=== PATIENT | female | born 1940 | race Caucasian/White ===

== ENCOUNTER → 2018-08-24 13:36 | Outpatient (CLI) | payer MEDICARE, OTHER, SELFPAY | PROVIDERS: PCP Family Medicine; Visit Provider Family Medicine | DX: M85.851 Other specified disorders of bone density and structure, right thigh (principal); Z78.0 Asymptomatic menopausal state; Z87.891 Personal history of nicotine dependence | CPT/HCPCS: 77080 ==

== ENCOUNTER 2018-11-29 11:15 | Outpatient (RCR) | payer MEDICARE, OTHER, SELFPAY ==
--- NOTE | 2018-09-21 17:15 | PT.OIE ---
Current Diagnoses Stiffness of unspecified joint, not elsewhere classified (09/21/18) Cervicalgia (09/21/18) Muscle weakness (generalized) (09/21/18) Strain of muscle, fascia and tendon at neck level, initial encounter (09/21/18) Provider Visit Care Team Role Provider Type Tha Crandall MD Attending Provider Physician Primary Care Provider Specialty: [facility] Address: [address] [place] [address], [facility] Email: [email or web address] Physical Therapy Initial Evaluation PT-OP-A Visit Information Start: 09/21/18 16:45 Freq: Status: Active Protocol: Document 09/21/18 09:45 DCW (Rec: 09/21/18 17:15 DCW [id number]) Out-Patient Physical Therapy Visit Information Visit Information Visit Type Initial Evaluation Visit Start Time 09:45 Visit Stop Time 10:30 Total Visit Minutes 45 Visit Number 1 Number of TEAMCENTER CONSULTANT Visits 0 Evaluation Information Evaluation Date 09/21/18 PT-OP-B Current Condition Start: 09/21/18 16:45 Freq: Status: Active Protocol: Document 09/21/18 09:45 DCW (Rec: 09/21/18 17:15 DCW [id number]) Current Condition History of Current Condition Onset Date 6 weeks Current Complaints Neck pain and stiffness History of Current Condition Pt is a 78 year old female presenting with a 6 week history of neck pain and stiffness. Pt cannot recall any initial injury, and reports she just noticed increased pain and limited mobility one day. Pt reports she mostly only has trouble when trying to drive her car and turn to look at traffic, but overall it just hurts. Pt also reports noticing some decline in her microstrategy architect strength, but is unsure if it was present prior to her neck pain . Pt reports that she notices her weakness most in the kitchen, and has to use two hands to carry a jar or a weinstein of food. Pt reports no instances of pain or numbness in her hands, just weakness. Treatment Goals Patient/Caregiver Goals Pt would like to improve her cervical ROM and decrease pain . Prior Functional Status Baseline Function- ADL's Independent Baseline Function- Mobility Independent Current Functional Impairments (Reported) Functional Limitations- ADL's Difficulty turning head to look at traffic while driving Pt reports trouble carrying items in the kitchen when preparing food. PT-OP-C Subjective Start: 09/21/18 16:45 Freq: Status: Active Protocol: Document 09/21/18 09:45 DCW (Rec: 09/21/18 17:15 DCW [id number]) OP-PT Subjective Patient Comments Patient Comments I think it is getting a little better, but it just took so long to get everything around to get a PT appointment. Patient Reported Progress Improving OP-PT Pain Assessment Pain Assessment Grid Paper Pain Assessment Grid Completed No Location Bilateral Lateral Neck Intensity 6 Scale Used Numeric (1 - 10) PT-OP-F Manual Assessment Start: 09/21/18 16:45 Freq: Status: Active Protocol: Document 09/21/18 09:45 DCW (Rec: 09/21/18 17:15 DCW [id number]) Manual Assessments Soft Tissue Assessment Soft Tissue Mobility Assessment Severe tone bilaterally in upper trap and scalenes. Moderate tone in cervical paraspinals. No notable tone increased in rotator cuff or parascapular musculature. Joint Mobility Assessment Joint Mobility Assessment C2, C3, C4 rotated clockwise secondary to increased muscle tone. PT-OP-K Range of Motion Start: 09/21/18 16:45 Freq: Status: Active Protocol: Document 09/21/18 09:45 DCW (Rec: 09/21/18 17:15 DCW [id number]) Cervical Spine Range of Motion Cervical Spine Active Degrees Testing Position Sitting Flexion 70 Extension 35 Rotation Left 44 Rotation Right 41 Lateral Flexion Left 25 Lateral Flexion Right 25 ROM Limitations Soft Tissue Tightness Bony Restriction Muscle Tone Pain Comments Following MWM using resisted cervical rotation, cervical rotation improved to 68? L and 55? R PT-OP-L Special Tests Start: 09/21/18 16:45 Freq: Status: Active Protocol: Document 09/21/18 09:45 DCW (Rec: 09/21/18 17:15 DCW [id number]) Special Tests Cervical Spine Special Tests Vertebral Artery Test Results Negative Slump Test Results Negative Traction Test Results Negative Passive Neck Flexion Test Results Negative Foraminal Compression Test Results Negative Alar Ligament Test Results Negative PT-OP-M Strength Start: 09/21/18 16:45 Freq: Status: Active Protocol: Document 09/21/18 09:45 DCW (Rec: 09/21/18 17:15 [facility] [id number]) Hand Pc Support Specialist/Pinch Strength Hand Dominance Hand Dominance Right Hand Strength Right Pc Support Specialist (lbs) 30 Comments Extended elbow with dynamometer, 3-trial average ( 30, 30, 30) Left Pc Support Specialist (lbs) 38.33 Comments Extended elbow with dynamometer, 3-trial average ( 35, 40, 40) PT-OP-Q Treatments Start: 09/21/18 16:45 Freq: Status: Active Protocol: Document 09/21/18 09:45 DCW (Rec: 09/21/18 17:15 [facility] [id number]) Therapeutic Exercises Sitting Exercises Pc Support Specialist strengthening Sitting Exercise Name T-putty microstrategy architect strengthening Side bilateral Equipment Used Red T-putty Upper Trap Stretch Sitting Exercise Name Lateral flexion with ipsilateral rotation Side bilateral Scalene stretch Sitting Exercise Name Gentle lateral flexion Side bilateral Manual Therapy Treatment Manual Techniques MWM Type Resisted cervical rotation Body Position Supine Comments Improve left rotation from 44? -> 68?, improved right rotation from 41? -> 55? PT-OP-T Assessment and Plan Start: 09/21/18 16:45 Freq: Status: Active Protocol: Document 09/21/18 09:45 DCW (Rec: 09/21/18 17:15 [facility] [id number]) Physical Therapy Assessment Rehab Potential Rehabilitation Potential Excellent Evaluation Complexity Number of Personal Factors/Comorbidities 0 Number of Body Systems Impaired 3 Clinical Presentation at Evaluation Stable Impairments Impairments Functional Activities Pain Posture ROM Strength Tone Goals Five Impairment Pc Support Specialist Strength Roving Winder Goal (LTG) Pt microstrategy architect strength to 55 lbs bilaterally LTG Duration 11/19/18 Four Impairment Cervical ROM Short Term Goal (STG) Cervical rotation to 70? bilaterally STG Duration 10/22/18 Three Impairment Meal Prep Short Term Goal (STG) Pt to carry all appropriate items one handed during meal prep STG Duration 10/22/18 Two Impairment Difficulty driving Roving Winder Goal (LTG) Pt to have no limitations turning head while driving LTG Duration 11/19/18 One Impairment Pt does not have an appropriate home exercise program Short Term Goal (STG) Pt to be independent and compliant with appropriate HEP STG Duration 10/22/18 Assessment Summary Assessment Pt presents with signs and symptoms of limited cervical ROM secondary to increased muscle tone. 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 No real noticeable cause for increased tone, does not appear to have acute injury or obvious upper trap compensatory strategies. Pt will likely benefit from skilled therapy focusing on decreasing tone, improving flexibility, and improving microstrategy architect strength. Pt will likely progress well with adherence to HEP and manual STM. Pt may also benefit from modalities to decrease tone and help control pain. Physical Therapy Plan Frequency and Duration Frequency of Treatment 2x/Week Duration of Treatment 2 months Plan of Care Start Date 09/21/18 Plan of Care End Date 11/19/18 Therapeutic Interventions Therapeutic Interventions Home Exercise Program Joint Mobilizations Manual Therapy Neuromuscular Re-education Patient/Caregiver Education Self-Care/Home Management Soft Tissue Mobilization Therapeutic Activities Therapeutic Exercises Modalities Cold Pack/Ice Massage Electric Stimulation Hot Packs Ultrasound Next Visit Focus/Plan Next Note Type Treatment Note Next Visit Plan STM, Flexibility training, MWM
--- NOTE | 2018-09-21 17:16 | PT.OPPOC ---
Current Diagnoses Stiffness of unspecified joint, not elsewhere classified (09/21/18) Cervicalgia (09/21/18) Muscle weakness (generalized) (09/21/18) Strain of muscle, fascia and tendon at neck level, initial encounter (09/21/18) Provider Visit Care Team Role Provider Type Tha Crandall MD Attending Provider Physician Primary Care Provider Specialty: [facility] Address: [address] [place] [address], [facility] Email: [email or web address] Plan Of Care PT-OP-T Assessment and Plan Start: 09/21/18 16:45 Freq: Status: Active Protocol: Document 09/21/18 09:45 DCW (Rec: 09/21/18 17:15 DCW [id number]) Physical Therapy Assessment Rehab Potential Rehabilitation Potential Excellent Evaluation Complexity Number of Personal Factors/Comorbidities 0 Number of Body Systems Impaired 3 Clinical Presentation at Evaluation Stable Impairments Impairments Functional Activities Pain Posture ROM Strength Tone Goals Five Impairment Area Cleaner Strength Long-Term Goal (LTG) Pt estimator binding strength to 55 lbs bilaterally LTG Duration 11/19/18 Four Impairment Cervical ROM Short Term Goal (STG) Cervical rotation to 70? bilaterally STG Duration 10/22/18 Three Impairment Meal Prep Short Term Goal (STG) Pt to carry all appropriate items one handed during meal prep STG Duration 10/22/18 Two Impairment Difficulty driving Automotive Parts Counterperson Goal (LTG) Pt to have no limitations turning head while driving LTG Duration 11/19/18 One Impairment Pt does not have an appropriate home exercise program Short Term Goal (STG) Pt to be independent and compliant with appropriate HEP STG Duration 10/22/18 Assessment Summary Assessment Pt presents with signs and symptoms of limited cervical ROM secondary to increased muscle tone. 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 No real noticeable cause for increased tone, does not appear to have acute injury or obvious upper trap compensatory strategies. Pt will likely benefit from skilled therapy focusing on decreasing tone, improving flexibility, and improving estimator binding strength. Pt will likely progress well with adherence to HEP and manual STM. Pt may also benefit from modalities to decrease tone and help control pain. Physical Therapy Plan Frequency and Duration Frequency of Treatment 2x/Week Duration of Treatment 2 months Plan of Care Start Date 09/21/18 Plan of Care End Date 11/19/18 Therapeutic Interventions Therapeutic Interventions Home Exercise Program Joint Mobilizations Manual Therapy Neuromuscular Re-education Patient/Caregiver Education Self-Care/Home Management Soft Tissue Mobilization Therapeutic Activities Therapeutic Exercises Modalities Cold Pack/Ice Massage Electric Stimulation Hot Packs Ultrasound Next Visit Focus/Plan Next Note Type Treatment Note Next Visit Plan STM, Flexibility training, MWM Plan of Care Dates Plan of Care Start Date 09/21/18 Plan of Care End Date 11/19/18 Please Sign and Return: I have reviewed this Plan of Care and certify that the skilled therapy services above are required to meet the patient?s needs. Physician Signature Date Printed Name and Credentials Clinical Instructor Signature Printed Name and Credentials
--- NOTE | 2018-09-23 13:36 | PT.OTN ---
Current Diagnoses Cervicalgia (09/23/18) Strain of muscle, fascia and tendon at neck level, initial encounter (09/23/18) Physical Therapy Treatment Note PT-OP-A Visit Information Start: 09/21/18 16:45 Freq: Status: Active Protocol: Document 09/23/18 11:15 AMB (Rec: 09/23/18 13:35 AMB [email or web address]) Out-Patient Physical Therapy Visit Information Visit Information Visit Type Treatment Note Visit Start Time 11:15 Visit Stop Time 12:00 Total Visit Minutes 55 Visit Number 2 PT-OP-B Current Condition Start: 09/21/18 16:45 Freq: Status: Active Protocol: Document 09/21/18 09:45 DCW (Rec: 09/21/18 17:15 DCW [id number]) Current Condition History of Current Condition Onset Date 6 weeks Current Complaints Neck pain and stiffness History of Current Condition Pt is a 78 year old female presenting with a 6 week history of neck pain and stiffness. Pt cannot recall any initial injury, and reports she just noticed increased pain and limited mobility one day. Pt reports she mostly only has trouble when trying to drive her car and turn to look at traffic, but overall it just hurts. Pt also reports noticing some decline in her spinneret cleaner strength, but is unsure if it was present prior to her neck pain . Pt reports that she notices her weakness most in the kitchen, and has to use two hands to carry a jar or a weinstein of food. Pt reports no instances of pain or numbness in her hands, just weakness. Treatment Goals Patient/Caregiver Goals Pt would like to improve her cervical ROM and decrease pain . Prior Functional Status Baseline Function- ADL's Independent Baseline Function- Mobility Independent Current Functional Impairments (Reported) Functional Limitations- ADL's Difficulty turning head to look at traffic while driving Pt reports trouble carrying items in the kitchen when preparing food. PT-OP-C Subjective Start: 09/21/18 16:45 Freq: Status: Active Protocol: Document 09/23/18 11:15 AMB (Rec: 09/23/18 13:35 AMB [email or web address]) OP-PT Subjective Patient Comments Patient Comments Pt noted increased soreness with stretching, thinks she may hav over done it. PT-OP-F Manual Assessment Start: 09/21/18 16:45 Freq: Status: Active Protocol: Document 09/21/18 09:45 DCW (Rec: 09/21/18 17:15 DCW [id number]) Manual Assessments Soft Tissue Assessment Soft Tissue Mobility Assessment Severe tone bilaterally in upper trap and scalenes. Moderate tone in cervical paraspinals. No notable tone increased in rotator cuff or parascapular musculature. Joint Mobility Assessment Joint Mobility Assessment C2, C3, C4 rotated clockwise secondary to increased muscle tone. PT-OP-K Range of Motion Start: 09/21/18 16:45 Freq: Status: Active Protocol: Document 09/21/18 09:45 DCW (Rec: 09/21/18 17:15 DCW [id number]) Cervical Spine Range of Motion Cervical Spine Active Degrees Testing Position Sitting Flexion 70 Extension 35 Rotation Left 44 Rotation Right 41 Lateral Flexion Left 25 Lateral Flexion Right 25 ROM Limitations Soft Tissue Tightness Bony Restriction Muscle Tone Pain Comments Following MWM using resisted cervical rotation, cervical rotation improved to 68? L and 55? R PT-OP-L Special Tests Start: 09/21/18 16:45 Freq: Status: Active Protocol: Document 09/21/18 09:45 DCW (Rec: 09/21/18 17:15 DCW [id number]) Special Tests Cervical Spine Special Tests Vertebral Artery Test Results Negative Slump Test Results Negative Traction Test Results Negative Passive Neck Flexion Test Results Negative Foraminal Compression Test Results Negative Alar Ligament Test Results Negative PT-OP-M Strength Start: 09/21/18 16:45 Freq: Status: Active Protocol: Document 09/21/18 09:45 DCW (Rec: 09/21/18 17:15 DCW [id number]) Hand Citrix Architect/Pinch Strength Hand Dominance Hand Dominance Right Hand Strength Right Citrix Architect (lbs) 30 Comments Extended elbow with dynamometer, 3-trial average ( 30, 30, 30) Left Citrix Architect (lbs) 38.33 Comments Extended elbow with dynamometer, 3-trial average ( 35, 40, 40) PT-OP-Q Treatments Start: 09/21/18 16:45 Freq: Status: Active Protocol: Document 09/23/18 11:15 AMB (Rec: 09/23/18 13:35 AMB [email or web address]) Cardio Equipment Upper Body Ergometer (UBE) Duration (Minutes) 5 RPM 60 Therapeutic Exercises Supine Exercises 1 Supine Exercise Name contract relax cervical rotation Sitting Exercises Citrix Architect strengthening Sitting Exercise Name T-putty spinneret cleaner strengthening Side bilateral Equipment Used Red T-putty Comments 2x/day, for 2 minutes Upper Trap Stretch Sitting Exercise Name Lateral flexion with ipsilateral rotation Side bilateral Reps/Minutes 45x2 Scalene stretch Sitting Exercise Name Gentle lateral flexion Side bilateral Reps/Minutes 45x2 Manual Therapy Treatment Soft Tissue Mobilization 1 Body Location suboccipitals, paraspinals, UT , levator scap Mobilization Type Myofascial Release Sustained Pressure Intensity/Depth Moderate Body Position Hooklying Manual Traction Cervical Body Position Hooklying PT-OP-R Modalities Start: 09/21/18 16:45 Freq: Status: Active Protocol: Document 09/23/18 11:15 AMB (Rec: 09/23/18 13:36 AMB [email or web address]) Hot Pack/Cold Pack Treatment Hot Pack Location cervical spine Patient Position Hooklying Treatment Duration (minutes) 10 PT-OP-T Assessment and Plan Start: 09/21/18 16:45 Freq: Status: Active Protocol: Document 09/23/18 11:15 AMB (Rec: 09/23/18 13:35 AMB [email or web address]) Physical Therapy Assessment Assessment Summary Assessment Right rotation continues to be more restricted than left. Encouraged pt in breathing into stretching rather than pushing into pain. Educated on posture and avoiding over use of UT with lifting activities. Physical Therapy Plan Next Visit Focus/Plan Next Note Type Treatment Note Next Visit Plan STM, Flexibility training, MWM
--- NOTE | 2018-09-27 12:43 | PT.OTN ---
Current Diagnoses Cervicalgia (09/27/18) Strain of muscle, fascia and tendon at neck level, initial encounter (09/27/18) Physical Therapy Treatment Note PT-OP-A Visit Information Start: 09/21/18 16:45 Freq: Status: Active Protocol: Document 09/27/18 11:15 AMB (Rec: 09/27/18 11:22 AMB [id number]) Out-Patient Physical Therapy Visit Information Visit Information Visit Type Treatment Note Visit Start Time 11:15 Visit Stop Time 12:00 Total Visit Minutes 55 Visit Number 2 Number of QUALITY ENGINEERING MANAGER Visits 3 PT-OP-B Current Condition Start: 09/21/18 16:45 Freq: Status: Active Protocol: Document 09/21/18 09:45 DCW (Rec: 09/21/18 17:15 DCW [id number]) Current Condition History of Current Condition Onset Date 6 weeks Current Complaints Neck pain and stiffness History of Current Condition Pt is a 78 year old female presenting with a 6 week history of neck pain and stiffness. Pt cannot recall any initial injury, and reports she just noticed increased pain and limited mobility one day. Pt reports she mostly only has trouble when trying to drive her car and turn to look at traffic, but overall it just hurts. Pt also reports noticing some decline in her supervisor coffee strength, but is unsure if it was present prior to her neck pain . Pt reports that she notices her weakness most in the kitchen, and has to use two hands to carry a jar or a weinstein of food. Pt reports no instances of pain or numbness in her hands, just weakness. Treatment Goals Patient/Caregiver Goals Pt would like to improve her cervical ROM and decrease pain . Prior Functional Status Baseline Function- ADL's Independent Baseline Function- Mobility Independent Current Functional Impairments (Reported) Functional Limitations- ADL's Difficulty turning head to look at traffic while driving Pt reports trouble carrying items in the kitchen when preparing food. PT-OP-C Subjective Start: 09/21/18 16:45 Freq: Status: Active Protocol: Document 09/27/18 11:15 AMB (Rec: 09/27/18 11:22 AMB [id number]) OP-PT Subjective Patient Comments Patient Comments Pt continues to notice sorness with stretching, tightness in right side when she is stretching the left. PT-OP-F Manual Assessment Start: 09/21/18 16:45 Freq: Status: Active Protocol: Document 09/21/18 09:45 DCW (Rec: 09/21/18 17:15 DCW [id number]) Manual Assessments Soft Tissue Assessment Soft Tissue Mobility Assessment Severe tone bilaterally in upper trap and scalenes. Moderate tone in cervical paraspinals. No notable tone increased in rotator cuff or parascapular musculature. Joint Mobility Assessment Joint Mobility Assessment C2, C3, C4 rotated clockwise secondary to increased muscle tone. PT-OP-K Range of Motion Start: 09/21/18 16:45 Freq: Status: Active Protocol: Document 09/21/18 09:45 DCW (Rec: 09/21/18 17:15 DCW [id number]) Cervical Spine Range of Motion Cervical Spine Active Degrees Testing Position Sitting Flexion 70 Extension 35 Rotation Left 44 Rotation Right 41 Lateral Flexion Left 25 Lateral Flexion Right 25 ROM Limitations Soft Tissue Tightness Bony Restriction Muscle Tone Pain Comments Following MWM using resisted cervical rotation, cervical rotation improved to 68? L and 55? R PT-OP-L Special Tests Start: 09/21/18 16:45 Freq: Status: Active Protocol: Document 09/21/18 09:45 DCW (Rec: 09/21/18 17:15 DCW [id number]) Special Tests Cervical Spine Special Tests Vertebral Artery Test Results Negative Slump Test Results Negative Traction Test Results Negative Passive Neck Flexion Test Results Negative Foraminal Compression Test Results Negative Alar Ligament Test Results Negative PT-OP-M Strength Start: 09/21/18 16:45 Freq: Status: Active Protocol: Document 09/21/18 09:45 DCW (Rec: 09/21/18 17:15 DCW [id number]) Hand Computer Typesetter/Pinch Strength Hand Dominance Hand Dominance Right Hand Strength Right Computer Typesetter (lbs) 30 Comments Extended elbow with dynamometer, 3-trial average ( 30, 30, 30) Left Computer Typesetter (lbs) 38.33 Comments Extended elbow with dynamometer, 3-trial average ( 35, 40, 40) PT-OP-Q Treatments Start: 09/21/18 16:45 Freq: Status: Active Protocol: Document 09/27/18 11:15 AMB (Rec: 09/27/18 12:43 AMB [email or web address]) Therapeutic Exercises Sitting Exercises Computer Typesetter strengthening Sitting Exercise Name T-putty supervisor coffee strengthening Side bilateral Equipment Used Green T-putty Comments 2x/day, for 2 minutes Upper Trap Stretch Sitting Exercise Name Lateral flexion with ipsilateral rotation Side bilateral Reps/Minutes 45x2 Scalene stretch Sitting Exercise Name Gentle lateral flexion Side bilateral Reps/Minutes 45x2 Manual Therapy Treatment Soft Tissue Mobilization 1 Body Location suboccipitals, paraspinals, UT , levator scap Mobilization Type Myofascial Release Sustained Pressure Intensity/Depth Moderate Body Position Hooklying Joint Mobilizations 1 Joint C3-4, C4-5, C5-6 Direction UPA Grade III Body Position Supine Manual Traction Cervical Body Position Hooklying PT-OP-R Modalities Start: 09/21/18 16:45 Freq: Status: Active Protocol: Document 09/27/18 11:15 AMB (Rec: 09/27/18 12:43 AMB [email or web address]) Hot Pack/Cold Pack Treatment Hot Pack Location cervical spine Patient Position Hooklying Treatment Duration (minutes) 10 PT-OP-T Assessment and Plan Start: 09/21/18 16:45 Freq: Status: Active Protocol: Document 09/27/18 11:15 AMB (Rec: 09/27/18 12:43 AMB [email or web address]) Physical Therapy Assessment Assessment Summary Assessment Pt is noticing discomfort with stretching, not bad in mid range, encouraged not to force stretching. Physical Therapy Plan Next Visit Focus/Plan Next Note Type Treatment Note Next Visit Plan STM, Flexibility training, MWM
--- NOTE | 2018-09-30 12:43 | PT.OTN ---
Current Diagnoses Cervicalgia (09/30/18) Strain of muscle, fascia and tendon at neck level, initial encounter (09/30/18) Physical Therapy Treatment Note PT-OP-A Visit Information Start: 09/21/18 16:45 Freq: Status: Active Protocol: Document 09/30/18 12:00 DCW (Rec: 09/30/18 12:43 DCW [id number]) Out-Patient Physical Therapy Visit Information Visit Information Visit Type Treatment Note Visit Start Time 12:00 Visit Stop Time 12:50 Total Visit Minutes 50 Visit Number 4 Number of CREW LEADER/CONTROL ROOM OPERATOR Visits 0 PT-OP-B Current Condition Start: 09/21/18 16:45 Freq: Status: Active Protocol: Document 09/21/18 09:45 DCW (Rec: 09/21/18 17:15 DCW [id number]) Current Condition History of Current Condition Onset Date 6 weeks Current Complaints Neck pain and stiffness History of Current Condition Pt is a 78 year old female presenting with a 6 week history of neck pain and stiffness. Pt cannot recall any initial injury, and reports she just noticed increased pain and limited mobility one day. Pt reports she mostly only has trouble when trying to drive her car and turn to look at traffic, but overall it just hurts. Pt also reports noticing some decline in her energy management specialist strength, but is unsure if it was present prior to her neck pain . Pt reports that she notices her weakness most in the kitchen, and has to use two hands to carry a jar or a weinstein of food. Pt reports no instances of pain or numbness in her hands, just weakness. Treatment Goals Patient/Caregiver Goals Pt would like to improve her cervical ROM and decrease pain . Prior Functional Status Baseline Function- ADL's Independent Baseline Function- Mobility Independent Current Functional Impairments (Reported) Functional Limitations- ADL's Difficulty turning head to look at traffic while driving Pt reports trouble carrying items in the kitchen when preparing food. PT-OP-C Subjective Start: 09/21/18 16:45 Freq: Status: Active Protocol: Document 09/30/18 12:00 DCW (Rec: 09/30/18 12:43 DCW [id number]) OP-PT Subjective Patient Comments Patient Comments I well good, well, I'm here anyway. Pt notes that she continues to feel soreness with some of her stretching, more with the lateral flexion. PT-OP-F Manual Assessment Start: 09/21/18 16:45 Freq: Status: Active Protocol: Document 09/21/18 09:45 DCW (Rec: 09/21/18 17:15 DCW [id number]) Manual Assessments Soft Tissue Assessment Soft Tissue Mobility Assessment Severe tone bilaterally in upper trap and scalenes. Moderate tone in cervical paraspinals. No notable tone increased in rotator cuff or parascapular musculature. Joint Mobility Assessment Joint Mobility Assessment C2, C3, C4 rotated clockwise secondary to increased muscle tone. PT-OP-K Range of Motion Start: 09/21/18 16:45 Freq: Status: Active Protocol: Document 09/21/18 09:45 DCW (Rec: 09/21/18 17:15 DCW [id number]) Cervical Spine Range of Motion Cervical Spine Active Degrees Testing Position Sitting Flexion 70 Extension 35 Rotation Left 44 Rotation Right 41 Lateral Flexion Left 25 Lateral Flexion Right 25 ROM Limitations Soft Tissue Tightness Bony Restriction Muscle Tone Pain Comments Following MWM using resisted cervical rotation, cervical rotation improved to 68? L and 55? R PT-OP-L Special Tests Start: 09/21/18 16:45 Freq: Status: Active Protocol: Document 09/21/18 09:45 DCW (Rec: 09/21/18 17:15 DCW [id number]) Special Tests Cervical Spine Special Tests Vertebral Artery Test Results Negative Slump Test Results Negative Traction Test Results Negative Passive Neck Flexion Test Results Negative Foraminal Compression Test Results Negative Alar Ligament Test Results Negative PT-OP-M Strength Start: 09/21/18 16:45 Freq: Status: Active Protocol: Document 09/21/18 09:45 DCW (Rec: 09/21/18 17:15 DCW [id number]) Hand Deployment Engineer/Pinch Strength Hand Dominance Hand Dominance Right Hand Strength Right Deployment Engineer (lbs) 30 Comments Extended elbow with dynamometer, 3-trial average ( 30, 30, 30) Left Deployment Engineer (lbs) 38.33 Comments Extended elbow with dynamometer, 3-trial average ( 35, 40, 40) PT-OP-Q Treatments Start: 09/21/18 16:45 Freq: Status: Active Protocol: Document 09/30/18 12:00 DCW (Rec: 09/30/18 12:43 DCW [id number]) Cardio Equipment Upper Body Ergometer (UBE) Duration (Minutes) 5 RPM 60 Therapeutic Exercises Supine Exercises Serratus Punch Supine Exercise Name Serratus Punch Side bilateral Resistance 3# Standing Exercises Horizontal Abduction Standing Exercise Name Horizontal Abduction Side bilateral Resistance Lv 3 Equipment Used T-band Shoulder Extension Standing Exercise Name Sh Extension Side bilateral Resistance Lv 3 Equipment Used T-band Rows Standing Exercise Name Rows Side bilateral Resistance Lv 3 Equipment Used T-band Manual Therapy Treatment Soft Tissue Mobilization 1 Body Location suboccipitals, paraspinals, UT , levator scap Mobilization Type Myofascial Release Sustained Pressure Intensity/Depth Moderate Body Position Hooklying Joint Mobilizations 1 Joint C3-4, C4-5, C5-6 Direction UPA Grade III Body Position Supine Manual Traction Cervical Body Position Hooklying PT-OP-R Modalities Start: 09/21/18 16:45 Freq: Status: Active Protocol: Document 09/30/18 12:00 DCW (Rec: 09/30/18 12:43 DCW [id number]) Hot Pack/Cold Pack Treatment Hot Pack Location cervical spine Patient Position Hooklying Treatment Duration (minutes) 10 PT-OP-T Assessment and Plan Start: 09/21/18 16:45 Freq: Status: Active Protocol: Document 09/30/18 12:00 DCW (Rec: 09/30/18 12:43 DCW [id number]) Physical Therapy Assessment Goals Five Impairment Deployment Engineer Strength Hematology Supervisor Goal (LTG) Pt energy management specialist strength to 55 lbs bilaterally LTG Duration 11/19/18 Four Impairment Cervical ROM Short Term Goal (STG) Cervical rotation to 70? bilaterally STG Duration 10/22/18 Three Impairment Meal Prep Short Term Goal (STG) Pt to carry all appropriate items one handed during meal prep STG Duration 10/22/18 Two Impairment Difficulty driving Half-Way Goal (LTG) Pt to have no limitations turning head while driving LTG Duration 11/19/18 One Impairment Pt does not have an appropriate home exercise program Short Term Goal (STG) Pt to be independent and compliant with appropriate HEP STG Duration 10/22/18 Assessment Summary Assessment Pt required verbal cues with new TherEx to limit upper trap compensation and stop shoulder shrugging. Physical Therapy Plan Frequency and Duration Frequency of Treatment 2x/Week Duration of Treatment 2 months Plan of Care Start Date 09/21/18 Plan of Care End Date 11/19/18 Therapeutic Interventions Therapeutic Interventions Home Exercise Program Joint Mobilizations Manual Therapy Neuromuscular Re-education Patient/Caregiver Education Self-Care/Home Management Soft Tissue Mobilization Therapeutic Activities Therapeutic Exercises Modalities Cold Pack/Ice Massage Electric Stimulation Hot Packs Ultrasound Next Visit Focus/Plan Next Note Type Treatment Note Next Visit Plan STM, Flexibility training, MWM
--- NOTE | 2018-10-04 12:08 | PT.OTN ---
Current Diagnoses Cervicalgia (10/04/18) Strain of muscle, fascia and tendon at neck level, initial encounter (10/04/18) Physical Therapy Treatment Note PT-OP-A Visit Information Start: 09/21/18 16:45 Freq: Status: Active Protocol: Document 10/04/18 09:00 AMB (Rec: 10/04/18 12:08 AMB [email or web address]) Out-Patient Physical Therapy Visit Information Visit Information Visit Type Treatment Note Visit Start Time 09:00 Visit Stop Time 09:45 Total Visit Minutes 50 Visit Number 5 Number of COW RIDER Visits 0 PT-OP-B Current Condition Start: 09/21/18 16:45 Freq: Status: Active Protocol: Document 09/21/18 09:45 DCW (Rec: 09/21/18 17:15 DCW [id number]) Current Condition History of Current Condition Onset Date 6 weeks Current Complaints Neck pain and stiffness History of Current Condition Pt is a 78 year old female presenting with a 6 week history of neck pain and stiffness. Pt cannot recall any initial injury, and reports she just noticed increased pain and limited mobility one day. Pt reports she mostly only has trouble when trying to drive her car and turn to look at traffic, but overall it just hurts. Pt also reports noticing some decline in her division roadmaster strength, but is unsure if it was present prior to her neck pain . Pt reports that she notices her weakness most in the kitchen, and has to use two hands to carry a jar or a weinstein of food. Pt reports no instances of pain or numbness in her hands, just weakness. Treatment Goals Patient/Caregiver Goals Pt would like to improve her cervical ROM and decrease pain . Prior Functional Status Baseline Function- ADL's Independent Baseline Function- Mobility Independent Current Functional Impairments (Reported) Functional Limitations- ADL's Difficulty turning head to look at traffic while driving Pt reports trouble carrying items in the kitchen when preparing food. PT-OP-C Subjective Start: 09/21/18 16:45 Freq: Status: Active Protocol: Document 10/04/18 09:00 AMB (Rec: 10/04/18 12:08 AMB [email or web address]) OP-PT Subjective Patient Comments Patient Comments Pt notices stiffness when driving, but not with other activities. PT-OP-F Manual Assessment Start: 09/21/18 16:45 Freq: Status: Active Protocol: Document 09/21/18 09:45 DCW (Rec: 09/21/18 17:15 DCW [id number]) Manual Assessments Soft Tissue Assessment Soft Tissue Mobility Assessment Severe tone bilaterally in upper trap and scalenes. Moderate tone in cervical paraspinals. No notable tone increased in rotator cuff or parascapular musculature. Joint Mobility Assessment Joint Mobility Assessment C2, C3, C4 rotated clockwise secondary to increased muscle tone. PT-OP-K Range of Motion Start: 09/21/18 16:45 Freq: Status: Active Protocol: Document 09/21/18 09:45 DCW (Rec: 09/21/18 17:15 DCW [id number]) Cervical Spine Range of Motion Cervical Spine Active Degrees Testing Position Sitting Flexion 70 Extension 35 Rotation Left 44 Rotation Right 41 Lateral Flexion Left 25 Lateral Flexion Right 25 ROM Limitations Soft Tissue Tightness Bony Restriction Muscle Tone Pain Comments Following MWM using resisted cervical rotation, cervical rotation improved to 68? L and 55? R PT-OP-L Special Tests Start: 09/21/18 16:45 Freq: Status: Active Protocol: Document 09/21/18 09:45 DCW (Rec: 09/21/18 17:15 DCW [id number]) Special Tests Cervical Spine Special Tests Vertebral Artery Test Results Negative Slump Test Results Negative Traction Test Results Negative Passive Neck Flexion Test Results Negative Foraminal Compression Test Results Negative Alar Ligament Test Results Negative PT-OP-M Strength Start: 09/21/18 16:45 Freq: Status: Active Protocol: Document 09/21/18 09:45 DCW (Rec: 09/21/18 17:15 DCW [id number]) Hand Building Construction Supervisor/Pinch Strength Hand Dominance Hand Dominance Right Hand Strength Right Building Construction Supervisor (lbs) 30 Comments Extended elbow with dynamometer, 3-trial average ( 30, 30, 30) Left Building Construction Supervisor (lbs) 38.33 Comments Extended elbow with dynamometer, 3-trial average ( 35, 40, 40) PT-OP-Q Treatments Start: 09/21/18 16:45 Freq: Status: Active Protocol: Document 10/04/18 09:00 AMB (Rec: 10/04/18 12:08 AMB [email or web address]) Cardio Equipment Bicycle (Upright) Duration (Minutes) 5 Resistance 5 Seat Position 2 Therapeutic Exercises Supine Exercises 2 Supine Exercise Name chin tucks Reps/Minutes 10 Standing Exercises Shoulder Extension Standing Exercise Name Sh Extension Side bilateral Resistance Lv 3 Equipment Used T-band Rows Standing Exercise Name Rows Side bilateral Resistance Lv 3 Equipment Used T-band Manual Therapy Treatment Soft Tissue Mobilization 1 Body Location suboccipitals, paraspinals, UT , levator scap Mobilization Type Myofascial Release Sustained Pressure Intensity/Depth Moderate Body Position Hooklying Joint Mobilizations 1 Joint C3-4, C4-5, C5-6 Direction UPA Grade III Body Position Supine Manual Traction Cervical Body Position Hooklying Manual Techniques MWM Type Resisted cervical rotation Body Position Supine PT-OP-R Modalities Start: 09/21/18 16:45 Freq: Status: Active Protocol: Document 09/30/18 12:00 DCW (Rec: 09/30/18 12:43 DCW [id number]) Hot Pack/Cold Pack Treatment Hot Pack Location cervical spine Patient Position Hooklying Treatment Duration (minutes) 10 PT-OP-T Assessment and Plan Start: 09/21/18 16:45 Freq: Status: Active Protocol: Document 10/04/18 09:00 AMB (Rec: 10/04/18 12:08 AMB [email or web address]) Physical Therapy Assessment Assessment Summary Assessment Pt continued to need cues for avoiding over use of upper traps. Improved cervical rotation at end of session, will need to check at beginning of session to make sure she is maintaining gains between sessions. Physical Therapy Plan Frequency and Duration Frequency of Treatment 2x/Week Duration of Treatment 2 months Plan of Care Start Date 09/21/18 Plan of Care End Date 11/19/18 Therapeutic Interventions Therapeutic Interventions Home Exercise Program Joint Mobilizations Manual Therapy Neuromuscular Re-education Patient/Caregiver Education Self-Care/Home Management Soft Tissue Mobilization Therapeutic Activities Therapeutic Exercises Modalities Cold Pack/Ice Massage Electric Stimulation Hot Packs Ultrasound Next Visit Focus/Plan Next Note Type Treatment Note Next Visit Plan STM, Flexibility training, MWM
--- NOTE | 2018-10-07 15:14 | PT.OTN ---
Current Diagnoses Cervicalgia (10/07/18) Strain of muscle, fascia and tendon at neck level, initial encounter (10/07/18) Physical Therapy Treatment Note PT-OP-A Visit Information Start: 09/21/18 16:45 Freq: Status: Active Protocol: Document 10/07/18 13:00 AMB (Rec: 10/07/18 13:08 AMB [id number]) Out-Patient Physical Therapy Visit Information Visit Information Visit Type Treatment Note Visit Start Time 09:00 Visit Stop Time 09:45 Total Visit Minutes 50 Visit Number 6 Number of RETAIL LOSS PREVENTION OFFICER Visits 0 PT-OP-B Current Condition Start: 09/21/18 16:45 Freq: Status: Active Protocol: Document 09/21/18 09:45 DCW (Rec: 09/21/18 17:15 DCW [id number]) Current Condition History of Current Condition Onset Date 6 weeks Current Complaints Neck pain and stiffness History of Current Condition Pt is a 78 year old female presenting with a 6 week history of neck pain and stiffness. Pt cannot recall any initial injury, and reports she just noticed increased pain and limited mobility one day. Pt reports she mostly only has trouble when trying to drive her car and turn to look at traffic, but overall it just hurts. Pt also reports noticing some decline in her internal controls analyst strength, but is unsure if it was present prior to her neck pain . Pt reports that she notices her weakness most in the kitchen, and has to use two hands to carry a jar or a weinstein of food. Pt reports no instances of pain or numbness in her hands, just weakness. Treatment Goals Patient/Caregiver Goals Pt would like to improve her cervical ROM and decrease pain . Prior Functional Status Baseline Function- ADL's Independent Baseline Function- Mobility Independent Current Functional Impairments (Reported) Functional Limitations- ADL's Difficulty turning head to look at traffic while driving Pt reports trouble carrying items in the kitchen when preparing food. PT-OP-C Subjective Start: 09/21/18 16:45 Freq: Status: Active Protocol: Document 10/07/18 13:00 AMB (Rec: 10/07/18 13:08 AMB [id number]) OP-PT Subjective Patient Comments Patient Comments Pt woke up stiff in the morning but is doing well now. PT-OP-F Manual Assessment Start: 09/21/18 16:45 Freq: Status: Active Protocol: Document 09/21/18 09:45 DCW (Rec: 09/21/18 17:15 DCW [id number]) Manual Assessments Soft Tissue Assessment Soft Tissue Mobility Assessment Severe tone bilaterally in upper trap and scalenes. Moderate tone in cervical paraspinals. No notable tone increased in rotator cuff or parascapular musculature. Joint Mobility Assessment Joint Mobility Assessment C2, C3, C4 rotated clockwise secondary to increased muscle tone. PT-OP-K Range of Motion Start: 09/21/18 16:45 Freq: Status: Active Protocol: Document 09/21/18 09:45 DCW (Rec: 09/21/18 17:15 DCW [id number]) Cervical Spine Range of Motion Cervical Spine Active Degrees Testing Position Sitting Flexion 70 Extension 35 Rotation Left 44 Rotation Right 41 Lateral Flexion Left 25 Lateral Flexion Right 25 ROM Limitations Soft Tissue Tightness Bony Restriction Muscle Tone Pain Comments Following MWM using resisted cervical rotation, cervical rotation improved to 68? L and 55? R PT-OP-L Special Tests Start: 09/21/18 16:45 Freq: Status: Active Protocol: Document 09/21/18 09:45 DCW (Rec: 09/21/18 17:15 DCW [id number]) Special Tests Cervical Spine Special Tests Vertebral Artery Test Results Negative Slump Test Results Negative Traction Test Results Negative Passive Neck Flexion Test Results Negative Foraminal Compression Test Results Negative Alar Ligament Test Results Negative PT-OP-M Strength Start: 09/21/18 16:45 Freq: Status: Active Protocol: Document 09/21/18 09:45 DCW (Rec: 09/21/18 17:15 DCW [id number]) Hand Manual Training Teacher/Pinch Strength Hand Dominance Hand Dominance Right Hand Strength Right Manual Training Teacher (lbs) 30 Comments Extended elbow with dynamometer, 3-trial average ( 30, 30, 30) Left Manual Training Teacher (lbs) 38.33 Comments Extended elbow with dynamometer, 3-trial average ( 35, 40, 40) PT-OP-Q Treatments Start: 09/21/18 16:45 Freq: Status: Active Protocol: Document 10/07/18 13:00 AMB (Rec: 10/07/18 15:12 AMB [email or web address]) Therapeutic Exercises Supine Exercises 2 Supine Exercise Name chin tucks Reps/Minutes 10 Standing Exercises Shoulder Extension Standing Exercise Name Sh Extension Side bilateral Resistance Lv 3 Equipment Used T-band Rows Standing Exercise Name Rows Side bilateral Resistance Lv 3 Equipment Used T-band Manual Therapy Treatment Soft Tissue Mobilization 1 Body Location suboccipitals, paraspinals, UT , levator scap Mobilization Type Myofascial Release Sustained Pressure Intensity/Depth Moderate Body Position Hooklying Joint Mobilizations 1 Joint C3-4, C4-5, C5-6 Direction UPA Grade III Body Position Supine Manual Traction Cervical Body Position Hooklying Manual Techniques MWM Type Resisted cervical rotation Body Position Supine PT-OP-R Modalities Start: 09/21/18 16:45 Freq: Status: Active Protocol: Document 10/07/18 13:00 AMB (Rec: 10/07/18 15:12 AMB [email or web address]) Hot Pack/Cold Pack Treatment Hot Pack Location cervical Patient Position Hooklying Treatment Duration (minutes) 10 Patient Tolerance Good PT-OP-T Assessment and Plan Start: 09/21/18 16:45 Freq: Status: Active Protocol: Document 10/07/18 13:00 AMB (Rec: 10/07/18 15:12 AMB [email or web address]) Physical Therapy Assessment Assessment Summary Assessment Better ROM both before and after treatment, continues being stiff to the right. 65 degrees to the left, 55 to the right at the end of the session. Physical Therapy Plan Next Visit Focus/Plan Next Note Type Treatment Note Next Visit Plan STM, Flexibility training, MWM
--- NOTE | 2018-10-14 11:08 | PT.OTN ---
Current Diagnoses Cervicalgia (10/14/18) Strain of muscle, fascia and tendon at neck level, initial encounter (10/14/18) Physical Therapy Treatment Note PT-OP-A Visit Information Start: 09/21/18 16:45 Freq: Status: Active Protocol: Document 10/14/18 10:30 AMB (Rec: 10/17/18 11:07 AMB [email or web address]) Out-Patient Physical Therapy Visit Information Visit Information Visit Type Treatment Note Visit Start Time 10:30 Visit Stop Time 11:20 Total Visit Minutes 55 Visit Number 7 Number of TRANSFER AND LINE UP WORKER Visits 0 PT-OP-B Current Condition Start: 09/21/18 16:45 Freq: Status: Active Protocol: Document 09/21/18 09:45 DCW (Rec: 09/21/18 17:15 DCW [id number]) Current Condition History of Current Condition Onset Date 6 weeks Current Complaints Neck pain and stiffness History of Current Condition Pt is a 78 year old female presenting with a 6 week history of neck pain and stiffness. Pt cannot recall any initial injury, and reports she just noticed increased pain and limited mobility one day. Pt reports she mostly only has trouble when trying to drive her car and turn to look at traffic, but overall it just hurts. Pt also reports noticing some decline in her dock guard strength, but is unsure if it was present prior to her neck pain . Pt reports that she notices her weakness most in the kitchen, and has to use two hands to carry a jar or a weinstein of food. Pt reports no instances of pain or numbness in her hands, just weakness. Treatment Goals Patient/Caregiver Goals Pt would like to improve her cervical ROM and decrease pain . Prior Functional Status Baseline Function- ADL's Independent Baseline Function- Mobility Independent Current Functional Impairments (Reported) Functional Limitations- ADL's Difficulty turning head to look at traffic while driving Pt reports trouble carrying items in the kitchen when preparing food. PT-OP-C Subjective Start: 09/21/18 16:45 Freq: Status: Active Protocol: Document 10/14/18 10:30 AMB (Rec: 10/17/18 11:07 AMB [email or web address]) OP-PT Subjective Patient Comments Patient Comments Pt notes ROM improving PT-OP-F Manual Assessment Start: 09/21/18 16:45 Freq: Status: Active Protocol: Document 09/21/18 09:45 DCW (Rec: 09/21/18 17:15 DCW [id number]) Manual Assessments Soft Tissue Assessment Soft Tissue Mobility Assessment Severe tone bilaterally in upper trap and scalenes. Moderate tone in cervical paraspinals. No notable tone increased in rotator cuff or parascapular musculature. Joint Mobility Assessment Joint Mobility Assessment C2, C3, C4 rotated clockwise secondary to increased muscle tone. PT-OP-K Range of Motion Start: 09/21/18 16:45 Freq: Status: Active Protocol: Document 09/21/18 09:45 DCW (Rec: 09/21/18 17:15 DCW [id number]) Cervical Spine Range of Motion Cervical Spine Active Degrees Testing Position Sitting Flexion 70 Extension 35 Rotation Left 44 Rotation Right 41 Lateral Flexion Left 25 Lateral Flexion Right 25 ROM Limitations Soft Tissue Tightness Bony Restriction Muscle Tone Pain Comments Following MWM using resisted cervical rotation, cervical rotation improved to 68? L and 55? R PT-OP-L Special Tests Start: 09/21/18 16:45 Freq: Status: Active Protocol: Document 09/21/18 09:45 DCW (Rec: 09/21/18 17:15 DCW [id number]) Special Tests Cervical Spine Special Tests Vertebral Artery Test Results Negative Slump Test Results Negative Traction Test Results Negative Passive Neck Flexion Test Results Negative Foraminal Compression Test Results Negative Alar Ligament Test Results Negative PT-OP-M Strength Start: 09/21/18 16:45 Freq: Status: Active Protocol: Document 09/21/18 09:45 DCW (Rec: 09/21/18 17:15 DCW [id number]) Hand Research Associate Quality Control Qc/Pinch Strength Hand Dominance Hand Dominance Right Hand Strength Right Research Associate Quality Control Qc (lbs) 30 Comments Extended elbow with dynamometer, 3-trial average ( 30, 30, 30) Left Research Associate Quality Control Qc (lbs) 38.33 Comments Extended elbow with dynamometer, 3-trial average ( 35, 40, 40) PT-OP-Q Treatments Start: 09/21/18 16:45 Freq: Status: Active Protocol: Document 10/14/18 10:30 AMB (Rec: 10/17/18 11:07 AMB [email or web address]) Cardio Equipment Upper Body Ergometer (UBE) Duration (Minutes) 5 RPM 60 Therapeutic Exercises Sitting Exercises Upper Trap Stretch Sitting Exercise Name Lateral flexion with ipsilateral rotation Side bilateral Reps/Minutes 45x2 Scalene stretch Sitting Exercise Name Gentle lateral flexion Side bilateral Reps/Minutes 45x2 Standing Exercises Rows Standing Exercise Name Rows Side bilateral Resistance Lv 3 Equipment Used T-band Manual Therapy Treatment Soft Tissue Mobilization 1 Body Location suboccipitals, paraspinals, UT , levator scap Mobilization Type Myofascial Release Sustained Pressure Intensity/Depth Moderate Body Position Hooklying Joint Mobilizations 1 Joint C3-4, C4-5, C5-6 Direction UPA Grade III Body Position Supine Manual Traction Cervical Body Position Hooklying Manual Techniques MWM Type Resisted cervical rotation Body Position Supine PT-OP-R Modalities Start: 09/21/18 16:45 Freq: Status: Active Protocol: Document 10/14/18 09:45 AMB (Rec: 10/17/18 11:08 AMB [email or web address]) Hot Pack/Cold Pack Treatment Hot Pack Location cervical Patient Position Hooklying Treatment Duration (minutes) 10 Patient Tolerance Good PT-OP-T Assessment and Plan Start: 09/21/18 16:45 Freq: Status: Active Protocol: Document 10/14/18 10:30 AMB (Rec: 10/17/18 11:07 AMB [email or web address]) Physical Therapy Assessment Assessment Summary Assessment 70 degrees to the left, and 60 degrees to the right after treatment. Pt progressing well. Physical Therapy Plan Next Visit Focus/Plan Next Note Type Treatment Note Next Visit Plan STM, Flexibility training, MWM
--- NOTE | 2018-10-18 15:02 | PT.OTN ---
Current Diagnoses Cervicalgia (10/18/18) Strain of muscle, fascia and tendon at neck level, initial encounter (10/18/18) Physical Therapy Treatment Note PT-OP-A Visit Information Start: 09/21/18 16:45 Freq: Status: Active Protocol: Document 10/18/18 13:45 AMB (Rec: 10/18/18 13:54 AMB [id number]) Out-Patient Physical Therapy Visit Information Visit Information Visit Type Treatment Note Visit Start Time 13:45 Visit Stop Time 14:40 Total Visit Minutes 55 Visit Number 8 Number of ELECTRONIC SECURITY TECHNICIAN Visits 0 PT-OP-B Current Condition Start: 09/21/18 16:45 Freq: Status: Active Protocol: Document 09/21/18 09:45 DCW (Rec: 09/21/18 17:15 DCW [id number]) Current Condition History of Current Condition Onset Date 6 weeks Current Complaints Neck pain and stiffness History of Current Condition Pt is a 78 year old female presenting with a 6 week history of neck pain and stiffness. Pt cannot recall any initial injury, and reports she just noticed increased pain and limited mobility one day. Pt reports she mostly only has trouble when trying to drive her car and turn to look at traffic, but overall it just hurts. 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 Pt reports that she notices her weakness most in the kitchen, and has to use two hands to carry a jar or a weinstein of food. Pt reports no instances of pain or numbness in her hands, just weakness. Treatment Goals Patient/Caregiver Goals Pt would like to improve her cervical ROM and decrease pain . Prior Functional Status Baseline Function- ADL's Independent Baseline Function- Mobility Independent Current Functional Impairments (Reported) Functional Limitations- ADL's Difficulty turning head to look at traffic while driving Pt reports trouble carrying items in the kitchen when preparing food. PT-OP-C Subjective Start: 09/21/18 16:45 Freq: Status: Active Protocol: Document 10/18/18 13:45 AMB (Rec: 10/18/18 13:54 AMB [id number]) OP-PT Subjective Patient Comments Patient Comments Pt feels like she is improving , but sitting up from a supine position in the morning is still very stiff. PT-OP-F Manual Assessment Start: 09/21/18 16:45 Freq: Status: Active Protocol: Document 09/21/18 09:45 DCW (Rec: 09/21/18 17:15 DCW [id number]) Manual Assessments Soft Tissue Assessment Soft Tissue Mobility Assessment Severe tone bilaterally in upper trap and scalenes. Moderate tone in cervical paraspinals. No notable tone increased in rotator cuff or parascapular musculature. Joint Mobility Assessment Joint Mobility Assessment C2, C3, C4 rotated clockwise secondary to increased muscle tone. PT-OP-K Range of Motion Start: 09/21/18 16:45 Freq: Status: Active Protocol: Document 09/21/18 09:45 DCW (Rec: 09/21/18 17:15 DCW [id number]) Cervical Spine Range of Motion Cervical Spine Active Degrees Testing Position Sitting Flexion 70 Extension 35 Rotation Left 44 Rotation Right 41 Lateral Flexion Left 25 Lateral Flexion Right 25 ROM Limitations Soft Tissue Tightness Bony Restriction Muscle Tone Pain Comments Following MWM using resisted cervical rotation, cervical rotation improved to 68? L and 55? R PT-OP-L Special Tests Start: 09/21/18 16:45 Freq: Status: Active Protocol: Document 09/21/18 09:45 DCW (Rec: 09/21/18 17:15 DCW [id number]) Special Tests Cervical Spine Special Tests Vertebral Artery Test Results Negative Slump Test Results Negative Traction Test Results Negative Passive Neck Flexion Test Results Negative Foraminal Compression Test Results Negative Alar Ligament Test Results Negative PT-OP-M Strength Start: 09/21/18 16:45 Freq: Status: Active Protocol: Document 09/21/18 09:45 DCW (Rec: 09/21/18 17:15 DCW [id number]) Hand Corporate Auditor/Pinch Strength Hand Dominance Hand Dominance Right Hand Strength Right Corporate Auditor (lbs) 30 Comments Extended elbow with dynamometer, 3-trial average ( 30, 30, 30) Left Corporate Auditor (lbs) 38.33 Comments Extended elbow with dynamometer, 3-trial average ( 35, 40, 40) PT-OP-Q Treatments Start: 09/21/18 16:45 Freq: Status: Active Protocol: Document 10/18/18 13:45 AMB (Rec: 10/18/18 15:01 AMB [email or web address]) Cardio Equipment Upper Body Ergometer (UBE) Duration (Minutes) 5 RPM 60 Therapeutic Exercises Supine Exercises 2 Supine Exercise Name chin tucks Reps/Minutes 10 Sitting Exercises Upper Trap Stretch Sitting Exercise Name Lateral flexion with ipsilateral rotation Side bilateral Reps/Minutes 45x2 Standing Exercises Rows Standing Exercise Name Rows Side bilateral Resistance Lv 3 Equipment Used T-band Manual Therapy Treatment Soft Tissue Mobilization 1 Body Location suboccipitals, paraspinals, UT , levator scap Mobilization Type Myofascial Release Sustained Pressure Intensity/Depth Moderate Body Position Hooklying Joint Mobilizations 1 Joint C3-4, C4-5, C5-6 Direction UPA Grade III Body Position Supine Manual Traction Cervical Body Position Hooklying Manual Techniques MWM Type Resisted cervical rotation Body Position Supine PT-OP-R Modalities Start: 09/21/18 16:45 Freq: Status: Active Protocol: Document 10/18/18 13:45 AMB (Rec: 10/18/18 15:01 AMB [email or web address]) Hot Pack/Cold Pack Treatment Hot Pack Location cervical Patient Position Hooklying Treatment Duration (minutes) 10 Patient Tolerance Good PT-OP-T Assessment and Plan Start: 09/21/18 16:45 Freq: Status: Active Protocol: Document 10/18/18 13:45 AMB (Rec: 10/18/18 15:01 AMB [email or web address]) Physical Therapy Assessment Assessment Summary Assessment 50 degrees to the right, 60 to the left with rotation before manual therapy. Instructed in chin tuck to move from supine to sitting- pt sits up rather than log roll. Pt with more palpable tension in UTafter cycling this weekend. Physical Therapy Plan Next Visit Focus/Plan Next Note Type Treatment Note Next Visit Plan STM, Flexibility training, MWM , body mechanics
--- NOTE | 2018-10-21 15:58 | PT.OTN ---
Current Diagnoses Cervicalgia (10/21/18) Strain of muscle, fascia and tendon at neck level, initial encounter (10/21/18) Physical Therapy Treatment Note PT-OP-A Visit Information Start: 09/21/18 16:45 Freq: Status: Active Protocol: Document 10/21/18 13:00 AMB (Rec: 10/21/18 13:08 AMB [id number]) Out-Patient Physical Therapy Visit Information Visit Information Visit Type Treatment Note Visit Start Time 13:00 Visit Stop Time 13:45 Total Visit Minutes 55 Visit Number 9 Number of DEVELOPER PROVER UPHOLSTERING Visits 0 PT-OP-B Current Condition Start: 09/21/18 16:45 Freq: Status: Active Protocol: Document 09/21/18 09:45 DCW (Rec: 09/21/18 17:15 DCW [id number]) Current Condition History of Current Condition Onset Date 6 weeks Current Complaints Neck pain and stiffness History of Current Condition Pt is a 78 year old female presenting with a 6 week history of neck pain and stiffness. Pt cannot recall any initial injury, and reports she just noticed increased pain and limited mobility one day. Pt reports she mostly only has trouble when trying to drive her car and turn to look at traffic, but overall it just hurts. 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 Pt reports that she notices her weakness most in the kitchen, and has to use two hands to carry a jar or a weinstein of food. Pt reports no instances of pain or numbness in her hands, just weakness. Treatment Goals Patient/Caregiver Goals Pt would like to improve her cervical ROM and decrease pain . Prior Functional Status Baseline Function- ADL's Independent Baseline Function- Mobility Independent Current Functional Impairments (Reported) Functional Limitations- ADL's Difficulty turning head to look at traffic while driving Pt reports trouble carrying items in the kitchen when preparing food. PT-OP-C Subjective Start: 09/21/18 16:45 Freq: Status: Active Protocol: Document 10/21/18 13:00 AMB (Rec: 10/21/18 13:08 AMB [id number]) OP-PT Subjective Patient Comments Patient Comments Pt noticed less pain with sitting up in bed this morning . PT-OP-F Manual Assessment Start: 09/21/18 16:45 Freq: Status: Active Protocol: Document 09/21/18 09:45 DCW (Rec: 09/21/18 17:15 DCW [id number]) Manual Assessments Soft Tissue Assessment Soft Tissue Mobility Assessment Severe tone bilaterally in upper trap and scalenes. Moderate tone in cervical paraspinals. No notable tone increased in rotator cuff or parascapular musculature. Joint Mobility Assessment Joint Mobility Assessment C2, C3, C4 rotated clockwise secondary to increased muscle tone. PT-OP-K Range of Motion Start: 09/21/18 16:45 Freq: Status: Active Protocol: Document 09/21/18 09:45 DCW (Rec: 09/21/18 17:15 DCW [id number]) Cervical Spine Range of Motion Cervical Spine Active Degrees Testing Position Sitting Flexion 70 Extension 35 Rotation Left 44 Rotation Right 41 Lateral Flexion Left 25 Lateral Flexion Right 25 ROM Limitations Soft Tissue Tightness Bony Restriction Muscle Tone Pain Comments Following MWM using resisted cervical rotation, cervical rotation improved to 68? L and 55? R PT-OP-L Special Tests Start: 09/21/18 16:45 Freq: Status: Active Protocol: Document 09/21/18 09:45 DCW (Rec: 09/21/18 17:15 DCW [id number]) Special Tests Cervical Spine Special Tests Vertebral Artery Test Results Negative Slump Test Results Negative Traction Test Results Negative Passive Neck Flexion Test Results Negative Foraminal Compression Test Results Negative Alar Ligament Test Results Negative PT-OP-M Strength Start: 09/21/18 16:45 Freq: Status: Active Protocol: Document 09/21/18 09:45 DCW (Rec: 09/21/18 17:15 DCW [id number]) Hand Web Press Operator Helper Offset/Pinch Strength Hand Dominance Hand Dominance Right Hand Strength Right Web Press Operator Helper Offset (lbs) 30 Comments Extended elbow with dynamometer, 3-trial average ( 30, 30, 30) Left Web Press Operator Helper Offset (lbs) 38.33 Comments Extended elbow with dynamometer, 3-trial average ( 35, 40, 40) PT-OP-Q Treatments Start: 09/21/18 16:45 Freq: Status: Active Protocol: Document 10/21/18 13:00 AMB (Rec: 10/21/18 15:57 AMB [email or web address]) Cardio Equipment Upper Body Ergometer (UBE) Duration (Minutes) 5 RPM 60 Therapeutic Exercises Standing Exercises Shoulder Extension Standing Exercise Name Sh Extension Side bilateral Resistance Lv 3 Equipment Used T-band Rows Standing Exercise Name Rows Side bilateral Resistance Lv 3 Equipment Used T-band Therapeutic Activity Therapeutic Activity 1 Name postural training in mirror Comments reduction in hanging on Ys, relaxing UTs, scapula down and back Manual Therapy Treatment Soft Tissue Mobilization 1 Body Location suboccipitals, paraspinals, UT , levator scap Mobilization Type Myofascial Release Sustained Pressure Intensity/Depth Moderate Body Position Hooklying Joint Mobilizations 1 Joint C3-4, C4-5, C5-6 Direction UPA Grade III Body Position Supine Manual Techniques MWM Type Resisted cervical rotation Body Position Supine PT-OP-R Modalities Start: 09/21/18 16:45 Freq: Status: Active Protocol: Document 10/18/18 13:45 AMB (Rec: 10/18/18 15:01 AMB [email or web address]) Hot Pack/Cold Pack Treatment Hot Pack Location cervical Patient Position Hooklying Treatment Duration (minutes) 10 Patient Tolerance Good PT-OP-T Assessment and Plan Start: 09/21/18 16:45 Freq: Status: Active Protocol: Document 10/21/18 13:00 AMB (Rec: 10/21/18 15:57 AMB [email or web address]) Physical Therapy Assessment Assessment Summary Assessment At beginning of treatment 55 degrees to the right, 65 to the left. Physical Therapy Plan Next Visit Focus/Plan Next Note Type Treatment Note Next Visit Plan STM, Flexibility training, MWM , body mechanics
--- NOTE | 2018-10-27 16:04 | PT.OPPN ---
Current Diagnoses Cervicalgia (10/27/18) Strain of muscle, fascia and tendon at neck level, initial encounter (10/27/18) Physical Therapy Progress Note PT-OP-A Visit Information Start: 09/21/18 16:45 Freq: Status: Active Protocol: Document 10/27/18 13:53 AMB (Rec: 10/27/18 13:54 AMB [id number]) Out-Patient Physical Therapy Visit Information Visit Information Visit Type Progress Note Visit Start Time 13:45 Visit Stop Time 14:30 Total Visit Minutes 55 Visit Number 10 PT-OP-B Current Condition Start: 09/21/18 16:45 Freq: Status: Active Protocol: Document 09/21/18 09:45 DCW (Rec: 09/21/18 17:15 DCW [id number]) Current Condition History of Current Condition Onset Date 6 weeks Current Complaints Neck pain and stiffness History of Current Condition Pt is a 78 year old female presenting with a 6 week history of neck pain and stiffness. Pt cannot recall any initial injury, and reports she just noticed increased pain and limited mobility one day. Pt reports she mostly only has trouble when trying to drive her car and turn to look at traffic, but overall it just hurts. 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 Pt reports that she notices her weakness most in the kitchen, and has to use two hands to carry a jar or a weinstein of food. Pt reports no instances of pain or numbness in her hands, just weakness. Treatment Goals Patient/Caregiver Goals Pt would like to improve her cervical ROM and decrease pain . Prior Functional Status Baseline Function- ADL's Independent Baseline Function- Mobility Independent Current Functional Impairments (Reported) Functional Limitations- ADL's Difficulty turning head to look at traffic while driving Pt reports trouble carrying items in the kitchen when preparing food. PT-OP-C Subjective Start: 09/21/18 16:45 Freq: Status: Active Protocol: Document 10/27/18 13:53 AMB (Rec: 10/27/18 13:54 AMB [id number]) OP-PT Subjective Patient Comments Patient Comments Pt states she is about 70% improved. PT-OP-F Manual Assessment Start: 09/21/18 16:45 Freq: Status: Active Protocol: Document 09/21/18 09:45 DCW (Rec: 09/21/18 17:15 DCW [id number]) Manual Assessments Soft Tissue Assessment Soft Tissue Mobility Assessment Severe tone bilaterally in upper trap and scalenes. Moderate tone in cervical paraspinals. No notable tone increased in rotator cuff or parascapular musculature. Joint Mobility Assessment Joint Mobility Assessment C2, C3, C4 rotated clockwise secondary to increased muscle tone. PT-OP-K Range of Motion Start: 09/21/18 16:45 Freq: Status: Active Protocol: Document 10/27/18 13:53 AMB (Rec: 10/27/18 16:04 AMB [email or web address]) Cervical Spine Range of Motion Cervical Spine Active Degrees Testing Position Sitting Rotation Left 70 Rotation Right 65 PT-OP-L Special Tests Start: 09/21/18 16:45 Freq: Status: Active Protocol: Document 09/21/18 09:45 DCW (Rec: 09/21/18 17:15 DCW [id number]) Special Tests Cervical Spine Special Tests Vertebral Artery Test Results Negative Slump Test Results Negative Traction Test Results Negative Passive Neck Flexion Test Results Negative Foraminal Compression Test Results Negative Alar Ligament Test Results Negative PT-OP-M Strength Start: 09/21/18 16:45 Freq: Status: Active Protocol: Document 09/21/18 09:45 DCW (Rec: 09/21/18 17:15 DCW [id number]) Hand Newspaper Inserter/Pinch Strength Hand Dominance Hand Dominance Right Hand Strength Right Newspaper Inserter (lbs) 30 Comments Extended elbow with dynamometer, 3-trial average ( 30, 30, 30) Left Newspaper Inserter (lbs) 38.33 Comments Extended elbow with dynamometer, 3-trial average ( 35, 40, 40) PT-OP-T Assessment and Plan Start: 09/21/18 16:45 Freq: Status: Active Protocol: Document 10/27/18 13:53 AMB (Rec: 10/27/18 15:58 AMB [email or web address]) Physical Therapy Assessment Assessment Summary Assessment The patient is about 70% better per her report, her range of motion continues to improve. Today her musculature was significantly looser, but she has also not been cycling due to the cold weather. Physical Therapy Plan Next Visit Focus/Plan Next Note Type Discharge Summary Next Visit Plan d/c vs hold for 1 month to give pt time to return if her symptoms worsen
--- NOTE | 2018-11-04 11:46 | PT.OTN ---
Current Diagnoses Cervicalgia (11/04/18) Strain of muscle, fascia and tendon at neck level, initial encounter (11/04/18) Physical Therapy Treatment Note PT-OP-A Visit Information Start: 09/21/18 16:45 Freq: Status: Active Protocol: Document 11/04/18 10:30 DCW (Rec: 11/04/18 11:16 DCW [id number]) Out-Patient Physical Therapy Visit Information Visit Information Visit Type Treatment Note Visit Start Time 10:30 Visit Stop Time 11:25 Total Visit Minutes 55 Visit Number 11 Evaluation Information Evaluation Date 09/21/18 PT-OP-B Current Condition Start: 09/21/18 16:45 Freq: Status: Active Protocol: Document 09/21/18 09:45 DCW (Rec: 09/21/18 17:15 DCW [id number]) Current Condition History of Current Condition Onset Date 6 weeks Current Complaints Neck pain and stiffness History of Current Condition Pt is a 78 year old female presenting with a 6 week history of neck pain and stiffness. Pt cannot recall any initial injury, and reports she just noticed increased pain and limited mobility one day. Pt reports she mostly only has trouble when trying to drive her car and turn to look at traffic, but overall it just hurts. 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 Pt reports that she notices her weakness most in the kitchen, and has to use two hands to carry a jar or a weinstein of food. Pt reports no instances of pain or numbness in her hands, just weakness. Treatment Goals Patient/Caregiver Goals Pt would like to improve her cervical ROM and decrease pain . Prior Functional Status Baseline Function- ADL's Independent Baseline Function- Mobility Independent Current Functional Impairments (Reported) Functional Limitations- ADL's Difficulty turning head to look at traffic while driving Pt reports trouble carrying items in the kitchen when preparing food. PT-OP-C Subjective Start: 09/21/18 16:45 Freq: Status: Active Protocol: Document 11/04/18 10:30 DCW (Rec: 11/04/18 11:16 DCW [id number]) OP-PT Subjective Patient Comments Patient Comments Since starting here, I'm much , much better, but it's still not quite right. PT-OP-F Manual Assessment Start: 09/21/18 16:45 Freq: Status: Active Protocol: Document 09/21/18 09:45 DCW (Rec: 09/21/18 17:15 DCW [id number]) Manual Assessments Soft Tissue Assessment Soft Tissue Mobility Assessment Severe tone bilaterally in upper trap and scalenes. Moderate tone in cervical paraspinals. No notable tone increased in rotator cuff or parascapular musculature. Joint Mobility Assessment Joint Mobility Assessment C2, C3, C4 rotated clockwise secondary to increased muscle tone. PT-OP-K Range of Motion Start: 09/21/18 16:45 Freq: Status: Active Protocol: Document 10/27/18 13:53 AMB (Rec: 10/27/18 16:04 AMB [email or web address]) Cervical Spine Range of Motion Cervical Spine Active Degrees Testing Position Sitting Rotation Left 70 Rotation Right 65 PT-OP-L Special Tests Start: 09/21/18 16:45 Freq: Status: Active Protocol: Document 09/21/18 09:45 DCW (Rec: 09/21/18 17:15 DCW [id number]) Special Tests Cervical Spine Special Tests Vertebral Artery Test Results Negative Slump Test Results Negative Traction Test Results Negative Passive Neck Flexion Test Results Negative Foraminal Compression Test Results Negative Alar Ligament Test Results Negative PT-OP-M Strength Start: 09/21/18 16:45 Freq: Status: Active Protocol: Document 11/04/18 10:30 DCW (Rec: 11/04/18 11:45 DCW [id number]) Hand Pharmaceutical Plant Operator/Pinch Strength Hand Strength Right Pharmaceutical Plant Operator (lbs) 40 Comments Extended elbow with dynamometer, 3-trial average ( 40, 35, 45) Left Pharmaceutical Plant Operator (lbs) 46.67 Comments Extended elbow with dynamometer, 3-trial average ( 50, 45, 45) PT-OP-Q Treatments Start: 09/21/18 16:45 Freq: Status: Active Protocol: Document 11/04/18 10:30 DCW (Rec: 11/04/18 11:16 DCW [id number]) Cardio Equipment Upper Body Ergometer (UBE) Duration (Minutes) 5 RPM 60 Therapeutic Exercises Standing Exercises Shoulder Extension Standing Exercise Name Sh Extension Side bilateral Resistance Lv 3 Equipment Used T-band Rows Standing Exercise Name Rows Side bilateral Resistance Lv 3 Equipment Used T-band Manual Therapy Treatment Soft Tissue Mobilization 1 Body Location suboccipitals, paraspinals, UT , levator scap Mobilization Type Myofascial Release Sustained Pressure Intensity/Depth Moderate Body Position Hooklying Joint Mobilizations 1 Joint C3-4, C4-5, C5-6 Direction UPA Grade III Body Position Supine Manual Traction Cervical Body Position Hooklying Manual Techniques MWM Type Resisted cervical rotation Body Position Supine PT-OP-R Modalities Start: 09/21/18 16:45 Freq: Status: Active Protocol: Document 11/04/18 10:30 DCW (Rec: 11/04/18 11:16 DCW [id number]) Hot Pack/Cold Pack Treatment Hot Pack Location cervical Patient Position Hooklying Treatment Duration (minutes) 10 Patient Tolerance Good PT-OP-T Assessment and Plan Start: 09/21/18 16:45 Freq: Status: Active Protocol: Document 11/04/18 10:30 DCW (Rec: 11/04/18 11:16 DCW [id number]) Physical Therapy Assessment Goals Five Impairment Pharmaceutical Plant Operator Strength Railway Signalling Engineer Goal (LTG) Pt chief data officer strength to 55 lbs bilaterally LTG Duration 11/19/18 Four Impairment Cervical ROM Short Term Goal (STG) Cervical rotation to 70? bilaterally STG Duration 10/22/18 Three Impairment Meal Prep Short Term Goal (STG) Pt to carry all appropriate items one handed during meal prep STG Duration 10/22/18 Two Impairment Difficulty driving Half-Way Goal (LTG) Pt to have no limitations turning head while driving LTG Duration 11/19/18 One Impairment Pt does not have an appropriate home exercise program Short Term Goal (STG) Pt to be independent and compliant with appropriate HEP STG Duration 10/22/18 Assessment Summary Assessment Pt continues to improve, however still feels some lingering pain/discomfort in her cervical spine, and will likely benefit from continued therapy. Physical Therapy Plan Next Visit Focus/Plan Next Note Type Treatment Note Next Visit Plan STM, Flexibility training, MWM , body mechanics
--- NOTE | 2018-11-23 16:36 | PT.OTN ---
Current Diagnoses Cervicalgia (11/23/18) Strain of muscle, fascia and tendon at neck level, initial encounter (11/23/18) Physical Therapy Treatment Note PT-OP-A Visit Information Start: 09/21/18 16:45 Freq: Status: Active Protocol: Document 11/23/18 11:15 AMB (Rec: 11/24/18 16:35 AMB [email or web address]) Out-Patient Physical Therapy Visit Information Visit Information Visit Type Treatment Note Visit Start Time 11:15 Visit Stop Time 12:00 Total Visit Minutes 45 Visit Number 14 PT-OP-B Current Condition Start: 09/21/18 16:45 Freq: Status: Active Protocol: Document 09/21/18 09:45 DCW (Rec: 09/21/18 17:15 DCW [id number]) Current Condition History of Current Condition Onset Date 6 weeks Current Complaints Neck pain and stiffness History of Current Condition Pt is a 78 year old female presenting with a 6 week history of neck pain and stiffness. Pt cannot recall any initial injury, and reports she just noticed increased pain and limited mobility one day. Pt reports she mostly only has trouble when trying to drive her car and turn to look at traffic, but overall it just hurts. 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 Pt reports that she notices her weakness most in the kitchen, and has to use two hands to carry a jar or a weinstein of food. Pt reports no instances of pain or numbness in her hands, just weakness. Treatment Goals Patient/Caregiver Goals Pt would like to improve her cervical ROM and decrease pain . Prior Functional Status Baseline Function- ADL's Independent Baseline Function- Mobility Independent Current Functional Impairments (Reported) Functional Limitations- ADL's Difficulty turning head to look at traffic while driving Pt reports trouble carrying items in the kitchen when preparing food. PT-OP-C Subjective Start: 09/21/18 16:45 Freq: Status: Active Protocol: Document 11/23/18 11:15 AMB (Rec: 11/24/18 16:35 AMB [email or web address]) OP-PT Subjective Patient Comments Patient Comments Pt reporting increased stress lately, but ROM is improving. PT-OP-F Manual Assessment Start: 09/21/18 16:45 Freq: Status: Active Protocol: Document 09/21/18 09:45 DCW (Rec: 09/21/18 17:15 DCW [id number]) Manual Assessments Soft Tissue Assessment Soft Tissue Mobility Assessment Severe tone bilaterally in upper trap and scalenes. Moderate tone in cervical paraspinals. No notable tone increased in rotator cuff or parascapular musculature. Joint Mobility Assessment Joint Mobility Assessment C2, C3, C4 rotated clockwise secondary to increased muscle tone. PT-OP-K Range of Motion Start: 09/21/18 16:45 Freq: Status: Active Protocol: Document 11/18/18 13:17 AMB (Rec: 11/18/18 13:19 AMB [id number]) Cervical Spine Range of Motion Cervical Spine Active Degrees Flexion 55 Extension 35 Rotation Left 60 Rotation Right 60 Lateral Flexion Left 25 Lateral Flexion Right 25 PT-OP-L Special Tests Start: 09/21/18 16:45 Freq: Status: Active Protocol: Document 09/21/18 09:45 DCW (Rec: 09/21/18 17:15 DCW [id number]) Special Tests Cervical Spine Special Tests Vertebral Artery Test Results Negative Slump Test Results Negative Traction Test Results Negative Passive Neck Flexion Test Results Negative Foraminal Compression Test Results Negative Alar Ligament Test Results Negative PT-OP-M Strength Start: 09/21/18 16:45 Freq: Status: Active Protocol: Document 11/04/18 10:30 DCW (Rec: 11/04/18 11:45 DCW [id number]) Hand Manager Business/Pinch Strength Hand Strength Right Manager Business (lbs) 40 Comments Extended elbow with dynamometer, 3-trial average ( 40, 35, 45) Left Manager Business (lbs) 46.67 Comments Extended elbow with dynamometer, 3-trial average ( 50, 45, 45) PT-OP-Q Treatments Start: 09/21/18 16:45 Freq: Status: Active Protocol: Document 11/23/18 11:15 AMB (Rec: 11/24/18 16:35 AMB [email or web address]) Cardio Equipment Upper Body Ergometer (UBE) Duration (Minutes) 8 RPM 60 Other fwd/bckwd Therapeutic Exercises Sitting Exercises Upper Trap Stretch Sitting Exercise Name Lateral flexion with ipsilateral rotation Side bilateral Reps/Minutes 45x2 Standing Exercises Shoulder Extension Standing Exercise Name Sh Extension Side bilateral Resistance Lv 3 Equipment Used T-band Rows Standing Exercise Name Rows Side bilateral Resistance Lv 3 Equipment Used T-band Manual Therapy Treatment Soft Tissue Mobilization 1 Body Location suboccipitals, paraspinals, UT , levator scap Mobilization Type Myofascial Release Sustained Pressure Intensity/Depth Moderate Body Position Hooklying Joint Mobilizations 1 Joint C2-3, C3-4, C4-5, C5-6 Direction UPA Grade III Body Position Supine Manual Traction Cervical Body Position Hooklying PT-OP-R Modalities Start: 09/21/18 16:45 Freq: Status: Active Protocol: Document 11/23/18 11:15 AMB (Rec: 11/24/18 16:35 AMB [email or web address]) Hot Pack/Cold Pack Treatment Hot Pack Location cervical Patient Position Hooklying Treatment Duration (minutes) 10 Patient Tolerance Good PT-OP-T Assessment and Plan Start: 09/21/18 16:45 Freq: Status: Active Protocol: Document 11/23/18 11:15 AMB (Rec: 11/24/18 16:35 AMB [email or web address]) Physical Therapy Assessment Assessment Summary Assessment Sarah has stiffness when getting up in the morning, continues to notice end range stiffness with rotation when driving. Physical Therapy Plan Next Visit Focus/Plan Next Note Type Treatment Note Next Visit Plan STM, Flexibility training, MWM , body mechanics/postural training
--- NOTE | 2018-11-29 16:06 | PT.OTN ---
Current Diagnoses Cervicalgia (11/29/18) Strain of muscle, fascia and tendon at neck level, initial encounter (11/29/18) Physical Therapy Treatment Note PT-OP-A Visit Information Start: 09/21/18 16:45 Freq: Status: Active Protocol: Document 11/29/18 11:15 AMB (Rec: 11/29/18 16:05 AMB [email or web address]) Out-Patient Physical Therapy Visit Information Visit Information Visit Type Treatment Note Visit Start Time 11:15 Visit Stop Time 12:00 Total Visit Minutes 45 Visit Number 15 PT-OP-B Current Condition Start: 09/21/18 16:45 Freq: Status: Active Protocol: Document 09/21/18 09:45 DCW (Rec: 09/21/18 17:15 DCW [id number]) Current Condition History of Current Condition Onset Date 6 weeks Current Complaints Neck pain and stiffness History of Current Condition Pt is a 78 year old female presenting with a 6 week history of neck pain and stiffness. Pt cannot recall any initial injury, and reports she just noticed increased pain and limited mobility one day. Pt reports she mostly only has trouble when trying to drive her car and turn to look at traffic, but overall it just hurts. 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 Pt reports that she notices her weakness most in the kitchen, and has to use two hands to carry a jar or a weinstein of food. Pt reports no instances of pain or numbness in her hands, just weakness. Treatment Goals Patient/Caregiver Goals Pt would like to improve her cervical ROM and decrease pain . Prior Functional Status Baseline Function- ADL's Independent Baseline Function- Mobility Independent Current Functional Impairments (Reported) Functional Limitations- ADL's Difficulty turning head to look at traffic while driving Pt reports trouble carrying items in the kitchen when preparing food. PT-OP-C Subjective Start: 09/21/18 16:45 Freq: Status: Active Protocol: Document 11/29/18 11:15 AMB (Rec: 11/29/18 16:05 AMB [email or web address]) OP-PT Subjective Patient Comments Patient Comments Pt seeing tomorrow PT-OP-F Manual Assessment Start: 09/21/18 16:45 Freq: Status: Active Protocol: Document 09/21/18 09:45 DCW (Rec: 09/21/18 17:15 DCW [id number]) Manual Assessments Soft Tissue Assessment Soft Tissue Mobility Assessment Severe tone bilaterally in upper trap and scalenes. Moderate tone in cervical paraspinals. No notable tone increased in rotator cuff or parascapular musculature. Joint Mobility Assessment Joint Mobility Assessment C2, C3, C4 rotated clockwise secondary to increased muscle tone. PT-OP-K Range of Motion Start: 09/21/18 16:45 Freq: Status: Active Protocol: Document 11/18/18 13:17 AMB (Rec: 11/18/18 13:19 AMB [id number]) Cervical Spine Range of Motion Cervical Spine Active Degrees Flexion 55 Extension 35 Rotation Left 60 Rotation Right 60 Lateral Flexion Left 25 Lateral Flexion Right 25 PT-OP-L Special Tests Start: 09/21/18 16:45 Freq: Status: Active Protocol: Document 09/21/18 09:45 DCW (Rec: 09/21/18 17:15 DCW [id number]) Special Tests Cervical Spine Special Tests Vertebral Artery Test Results Negative Slump Test Results Negative Traction Test Results Negative Passive Neck Flexion Test Results Negative Foraminal Compression Test Results Negative Alar Ligament Test Results Negative PT-OP-M Strength Start: 09/21/18 16:45 Freq: Status: Active Protocol: Document 11/04/18 10:30 DCW (Rec: 11/04/18 11:45 DCW [id number]) Hand Zinc Plate Cutter/Pinch Strength Hand Strength Right Zinc Plate Cutter (lbs) 40 Comments Extended elbow with dynamometer, 3-trial average ( 40, 35, 45) Left Zinc Plate Cutter (lbs) 46.67 Comments Extended elbow with dynamometer, 3-trial average ( 50, 45, 45) PT-OP-Q Treatments Start: 09/21/18 16:45 Freq: Status: Active Protocol: Document 11/29/18 11:15 AMB (Rec: 11/29/18 16:05 AMB [email or web address]) Therapeutic Exercises Supine Exercises Serratus Punch Resistance #5 Reps/Minutes 2x10 Sitting Exercises Upper Trap Stretch Sitting Exercise Name Lateral flexion with ipsilateral rotation Side bilateral Reps/Minutes 45x2 Standing Exercises Shoulder Extension Standing Exercise Name Sh Extension Side bilateral Resistance Lv 3 Equipment Used T-band Rows Standing Exercise Name Rows Side bilateral Resistance Lv 3 Equipment Used T-band Manual Therapy Treatment Soft Tissue Mobilization 1 Body Location suboccipitals, paraspinals, UT , levator scap Mobilization Type Myofascial Release Sustained Pressure Intensity/Depth Moderate Body Position Hooklying Joint Mobilizations 1 Joint C2-3, C3-4, C4-5, C5-6 Direction UPA Grade III Body Position Supine Manual Traction Cervical Body Position Hooklying Manual Techniques MWM Type Resisted cervical rotation Body Position Supine PT-OP-R Modalities Start: 09/21/18 16:45 Freq: Status: Active Protocol: Document 11/29/18 11:15 AMB (Rec: 11/29/18 16:05 AMB [email or web address]) Hot Pack/Cold Pack Treatment Hot Pack Location cervical Patient Position Hooklying Treatment Duration (minutes) 10 Patient Tolerance Good PT-OP-T Assessment and Plan Start: 09/21/18 16:45 Freq: Status: Active Protocol: Document 11/29/18 11:15 AMB (Rec: 11/29/18 16:05 AMB [email or web address]) Physical Therapy Assessment Assessment Summary Assessment Sarah has improved her ROM to 67 degrees rotation to the R, and 62 to the L, however both of these movement reproduce upper trap pain at end range. Physical Therapy Plan Next Visit Focus/Plan Next Note Type Treatment Note Next Visit Plan STM, Flexibility training, MWM , body mechanics/postural training
--- NOTE | 2018-12-26 15:09 | PT.OPDS ---
Current Diagnoses Cervicalgia (11/29/18) Strain of muscle, fascia and tendon at neck level, initial encounter (11/29/18) Provider Visit Care Team Role Provider Type Tha Crandall MD Attending Provider Physician Primary Care Provider Specialty: [facility] Address: [facility] [place], [address] Email: [email or web address] Visit Number Visit Number 15 Discharge Summary PT-OP-B Current Condition Start: 09/21/18 16:45 Freq: Status: Active Protocol: Document 09/21/18 09:45 DCW (Rec: 09/21/18 17:15 DCW [id number]) Current Condition History of Current Condition Onset Date 6 weeks Current Complaints Neck pain and stiffness History of Current Condition Pt is a 78 year old female presenting with a 6 week history of neck pain and stiffness. Pt cannot recall any initial injury, and reports she just noticed increased pain and limited mobility one day. Pt reports she mostly only has trouble when trying to drive her car and turn to look at traffic, but overall it just hurts. 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 Pt reports that she notices her weakness most in the kitchen, and has to use two hands to carry a jar or a weinstein of food. Pt reports no instances of pain or numbness in her hands, just weakness. Treatment Goals Patient/Caregiver Goals Pt would like to improve her cervical ROM and decrease pain . Prior Functional Status Baseline Function- ADL's Independent Baseline Function- Mobility Independent Current Functional Impairments (Reported) Functional Limitations- ADL's Difficulty turning head to look at traffic while driving Pt reports trouble carrying items in the kitchen when preparing food. PT-OP-C Subjective Start: 09/21/18 16:45 Freq: Status: Active Protocol: Document 11/29/18 11:15 AMB (Rec: 11/29/18 16:05 AMB [email or web address]) OP-PT Subjective Patient Comments Patient Comments Pt seeing MD tomorrow PT-OP-F Manual Assessment Start: 09/21/18 16:45 Freq: Status: Active Protocol: Document 09/21/18 09:45 DCW (Rec: 01/02/19 17:15 DCW [id number]) Manual Assessments Soft Tissue Assessment Soft Tissue Mobility Assessment Severe tone bilaterally in upper trap and scalenes. Moderate tone in cervical paraspinals. No notable tone increased in rotator cuff or parascapular musculature. Joint Mobility Assessment Joint Mobility Assessment C2, C3, C4 rotated clockwise secondary to increased muscle tone. PT-OP-K Range of Motion Start: 09/21/18 16:45 Freq: Status: Active Protocol: Document 11/18/18 13:17 AMB (Rec: 11/18/18 13:19 AMB [id number]) Cervical Spine Range of Motion Cervical Spine Active Degrees Flexion 55 Extension 35 Rotation Left 60 Rotation Right 60 Lateral Flexion Left 25 Lateral Flexion Right 25 PT-OP-L Special Tests Start: 09/21/18 16:45 Freq: Status: Active Protocol: Document 09/21/18 09:45 DCW (Rec: 09/21/18 17:15 DCW [id number]) Special Tests Cervical Spine Special Tests Vertebral Artery Test Results Negative Slump Test Results Negative Traction Test Results Negative Passive Neck Flexion Test Results Negative Foraminal Compression Test Results Negative Alar Ligament Test Results Negative PT-OP-M Strength Start: 09/21/18 16:45 Freq: Status: Active Protocol: Document 11/04/18 10:30 DCW (Rec: 11/04/18 11:45 DCW [id number]) Hand Industrial Gas Servicer Helper/Pinch Strength Hand Strength Right Industrial Gas Servicer Helper (lbs) 40 Comments Extended elbow with dynamometer, 3-trial average ( 40, 35, 45) Left Industrial Gas Servicer Helper (lbs) 46.67 Comments Extended elbow with dynamometer, 3-trial average ( 50, 45, 45) PT-OP-T Assessment and Plan Start: 09/21/18 16:45 Freq: Status: Active Protocol: Document 12/26/18 15:08 DCW (Rec: 12/26/18 15:09 DCW [id number]) Physical Therapy Assessment Assessment Summary Assessment Pt contacted this clinic to request discharge. No further information was gathered at that time. Pt will be discharged from skilled therapy. Physical Therapy Plan Discharge Physical Therapy Discharge Reasons Patient Request Next Visit Focus/Plan Next Note Type Discharge Summary
== END 2018-11-29 12:15 ==
LOC: PHYS 11:15
PROVIDERS: PCP Family Medicine; Visit Provider Family Medicine
DX: S16.1XXA Strain of muscle, fascia and tendon at neck level, initial encounter (principal); M54.2 Cervicalgia
CPT/HCPCS: 97010; 97110; 97140; 97161; 97530

== ENCOUNTER → 2018-12-06 15:46 | Outpatient (CLI) | payer MEDICARE, OTHER, SELFPAY ==
--- NOTE | 2018-12-06 | DI.MRI.S_ITS ---
PROCEDURE: MR CERVICAL SPINE WO CON INDICATIONS: CERVICALGIA TECHNIQUE: Noncontrast sagittal T1 spin echo and T2 fast spin echo, sagittal STIR, foraminal oblique sagittal T2 fast spin echo, and axial gradient echo or T2 fast spin echo through the cervical spine. COMPARISON: None. FINDINGS: Image quality: Excellent. Alignment and Curvature: Straightening of the normal cervical lordosis. Grade 1 anterolisthesis of C4 on C5. Grade 1 retrolisthesis of C5 on exc. There is diffuse endplate degenerative signal change throughout the cervical spine. Spinal Cord: Visualized spinal cord has normal size and signal. No cerebellar tonsillar herniation. Paraspinous Soft Tissues: No paravertebral masses. Prevertebral soft tissues are normal in thickness. C2-C3: No central canal narrowing. Mild bilateral foraminal narrowing. C3-C4: Bilateral uncovertebral arthropathy and posterior intervening disc osteophyte complex, and bilateral facet arthropathy. Mild canal narrowing. Ligamentum flavum hypertrophy. Moderate to severe bilateral foraminal stenoses C4-C5: Bilateral uncovertebral arthropathy and posterior intervening disc osteophyte complex, and bilateral facet arthropathy. Mild canal narrowing. Severe bilateral foraminal stenoses C5-C6: Bilateral uncovertebral arthropathy and posterior intervening disc osteophyte complex, which is asymmetric, left greater than right. There is also extensive left sided paravertebral osteophyte formation. Moderate canal stenosis. Severe bilateral foraminal narrowing. C6-C7: Bilateral uncovertebral arthropathy and posterior intervening disc osteophyte complex, and bilateral facet arthropathy. Mild to moderate canal narrowing. Severe bilateral foraminal stenoses C7-T1: Normal appearance. IMPRESSION: Multilevel spondylosis and spondylolisthesis as above. Moderate C5-C6 Canal stenosis. [id number] C6-C7 canal narrowing. Severe bilateral C3-C4, C4-C5, C5-6 and C6-C7 foraminal stenoses. Dictated by: Edward Phoenix M.D. on 12/06/2018 at 16:48 Approved by: Edward Phoenix M.D. on 12/06/2018 at 16:56
== END ==
PROVIDERS: PCP Family Medicine; Visit Provider Family Medicine
DX: M54.2 Cervicalgia (principal); M47.812 Spondylosis without myelopathy or radiculopathy, cervical region; M48.02 Spinal stenosis, cervical region; M43.12 Spondylolisthesis, cervical region
CPT/HCPCS: 72141

== ENCOUNTER 2019-10-17 10:30 | Outpatient (RCR) | payer MEDICARE, OTHER, SELFPAY ==
--- NOTE | 2019-10-13 16:50 | PT.OIE ---
Current Diagnoses Sciatica, unspecified side (10/13/19) Visit Care Team Role Provider Type Santa Santiago MD Attending Provider Physician Primary Care Provider Specialty: Family Practice Address: [address] [place] [address], [facility], [place], [address] Email: [email or web address] Physical Therapy Initial Evaluation PT-OP-A Visit Information Start: 10/13/19 15:45 Freq: Status: Active Protocol: Document 10/13/19 15:47 EG (Rec: 10/13/19 16:00 EG [email or web address]) Out-Patient Physical Therapy Visit Information Visit Information Visit Type Initial Evaluation Visit Start Time 10:30 Visit Stop Time 11:15 Total Visit Minutes 45 Visit Number 1 Number of UTILITY TRACTOR OPERATOR Visits 0 Evaluation Information Evaluation Date 10/13/19 PT-OP-B Current Condition Start: 10/13/19 15:45 Freq: Status: Active Protocol: Document 10/13/19 15:47 EG (Rec: 10/13/19 16:00 EG [email or web address]) Current Condition History of Current Condition Onset Date 6 months ago Current Complaints pain down L leg History of Current Condition Patient is a 79 year old female who reports to physical therapy for the complaint of pain down her L leg when she is sitting or laying down on her back. The pain started about 6 months ago while she was dealing with a stressful move and she would feel a sharp pain going down her L leg when she was seated or lying down to go to sleep. It would not be as bad in the morning. She couldn't tell which movements were causing her to have the pain either. She feels relief when standing or biking. Patient also mentioned that at the worst, the pain was a 6/10 and currently she said the pain was very minimal. When she felt the pain go down her L leg, it would go all the way to her foot. She started to wake up and do 40 squats ( which she demonstrated) and thinks this may have helped her pain. Since 6 months ago, the pain has decreased significantly and now her goal for PT is just looking for ways to handle the pain in case it comes back. Prior Treatments and Tests She felt this same pain years ago and never had imaging or PT. No current imaging. Treatment Goals Patient/Caregiver Goals Patient would like to learn what to do in case the pain comes back in the same intensity as before. Patient would also like to prevent the pain from coming back. Prior Functional Status Baseline Function- ADL's Independent Baseline Function- Mobility Independent Baseline Function- Gait Independent Baseline Function- Work/School Retired Baseline Function- Recreation/Hobbies Road Biker, Enjoys walking Current Functional Impairments (Reported) Functional Limitations- ADL's Lying supine in bed; sitting for long periods of time Functional Limitations- Other Does not limit her everyday activities but she is aware of the pain during everyday activities Personal Factors Other Personal Factors That May Effect Lives with and has Therapy/Recovery stairs in the house. Active. Prior history of Neck pain. Arthritis. PT-OP-E Functional Tests Start: 10/13/19 15:45 Freq: Status: Active Protocol: Document 10/13/19 15:47 EG (Rec: 10/13/19 16:00 EG [email or web address]) Functional Tests Squat Test Comments Extreme valgus in bilateral knees with squat PT-OP-J Posture/Palpation/Skin Start: 10/13/19 15:45 Freq: Status: Active Protocol: Document 10/13/19 15:47 EG (Rec: 10/13/19 16:09 EG [email or web address]) Posture Evaluation Position Standing Evaluation View Posterior Pelvis Posture Neutral Weight Distribution Balanced Hip Posture (L) Neutral,(R) Neutral Palpation Assessment Location L gluteal tendon/piriformis Palpation Location L piriformis/gluteal tendons Palpation Findings None/Normal Palpation Details No p! with palpation L2-L5 Palpation Location PA mobilization Palpation Details relieved pain for patient PT-OP-K Range of Motion Start: 10/13/19 15:45 Freq: Status: Active Protocol: Document 10/13/19 15:47 EG (Rec: 10/13/19 16:09 EG [email or web address]) Lumbar Spine Range of Motion Lumbar Spine Active Degrees Testing Position Standing Flexion 40 Extension 20 Lateral Flexion Left 20 Lateral Flexion Right 15 Comments p! with repeated flexion Hip Goniometric Range of Motion Hip Left Active Hip ROM WFL Yes Testing Position Supine Right Active Hip ROM WFL Yes Testing Position Supine PT-OP-L Special Tests Start: 10/13/19 15:45 Freq: Status: Active Protocol: Document 10/13/19 15:47 EG (Rec: 10/13/19 16:09 EG [email or web address]) Special Tests Lumbar Spine Special Tests Straight Leg Raise Test Results + Comments L side Slump Test Results - Hip Special Tests FADIR Test Results - DMITRY Test Results - PT-OP-M Strength Start: 10/13/19 15:45 Freq: Status: Active Protocol: Document 10/13/19 15:47 EG (Rec: 10/13/19 16:09 EG [email or web address]) Hip Strength Hip Manual Muscle Testing Right Extension (S1) 4- Good- Abduction 4- Good- Left Extension (S1) 4- Good- Abduction 4- Good- PT-OP-Q Treatments Start: 10/13/19 15:45 Freq: Status: Active Protocol: Document 10/13/19 15:47 EG (Rec: 10/13/19 16:33 EG [email or web address]) Therapeutic Exercises Supine Exercises 2 Supine Exercise Name Sciatic Nerve Glides Side left Reps/Minutes 5x Comments Given as HEP Prone Exercises Cobra/ Lumbar Extension Prone Exercise Name Lumbar extension press up Reps/Minutes 10x Comments given as HEP. Stop before increase in pain Sidelying Exercises Clams Sidelying Exercise Name Clams Side bilateral Reps/Minutes 10x each side Comments given as HEP PT-OP-T Assessment and Plan Start: 10/13/19 15:45 Freq: Status: Active Protocol: Document 10/13/19 15:47 EG (Rec: 10/13/19 16:33 EG [email or web address]) Physical Therapy Assessment Rehab Potential Rehabilitation Potential Excellent Evaluation Complexity Number of Personal Factors/Comorbidities 1-2 Number of Body Systems Impaired 4 or More Clinical Presentation at Evaluation Stable Impairments Impairments Activity Tolerance,Functional Activities,Functional Mobility ,Pain,ROM,Strength Goals Five Impairment Strength Short Term Goal (STG) Patient will perform 40 body squats with no knee valgus bilaterally in 2 weeks. STG Duration 2 weeks. Utilities Equipment Repairer Goal (LTG) Patient will be taught hip abduction and hip extension strength therapeutic exercises in order to increase strength and neuromuscular connection of these muscles to 4+/5 bilaterally in 4 weeks. Four Impairment Pain Short Term Goal (STG) Patient will have no more than a 2/10 pain with centralized pain in lower back without radiating pain with repeated lumbar flexion in 2 weeks. STG Duration 2 weeks Half-Way Goal (LTG) Patient will report 0/10 radiating pain when seated for longer than 60 minutes in 4 weeks. LTG Duration 4 weeks Three Impairment ROM Short Term Goal (STG) Patient will have (-) test in L leg with SLR in 4 weeks. STG Duration 4 weeks Assessment Summary Assessment Patient has been experiencing sciatic nerve pain down the L posterior leg during sedentary and flexion activities due to irritation of sciatic nerve when immobile potentially due to seated posture that is stemmed from lumbar spine. Patient did have peripheral symptoms with repeated flexion and centralized symptoms with lumbar extension increasing liklihood patient has an extension bias. Patient should progress with extension exercises as well as sciatic nerve glides to help with decreased tension of sciatic nerve during daily mobility exercises. Patient will also benefit from posterior and lateral hip strengthening exercises to help patient with stabilization during standing exercises as well as to encourage good mechanics with daily squats. Patient's symptoms are decreased as of now but she will benefit from core strengthening and postural education to prevent the pain from returning. Physical Therapy Plan Frequency and Duration Frequency of Treatment 1x/Week Duration of Treatment 4 weeks Plan of Care Start Date 10/13/19 Plan of Care End Date 11/10/19 Therapeutic Interventions Therapeutic Interventions Balance Training,Gait Training ,Home Exercise Program,Manual Therapy,Neuromuscular Re- education,Self-Care/Home Management,Soft Tissue Mobilization,Therapeutic Activities,Therapeutic Exercises Modalities Cold Pack/Ice Massage,Electric Stimulation Next Visit Focus/Plan Next Note Type Treatment Note Next Visit Plan Assess how HEP is going. Introduce increased lumbar extension exercises and seated sciatic nerve glides. Squat mechanical door repairer education and increased hip abduction strengthening Joselyn Godinez DPT, supervised all treatment performed by, and agreed with the plan of care, as performed by KATHERIN Holden.
--- NOTE | 2019-10-13 16:51 | PT.OPPOC ---
Physical, Occupational & Speech Therapy At [facility] Current Diagnoses Sciatica, unspecified side (10/13/19) Visit Care Team Role Provider Type Santa Santiago MD Attending Provider Physician Primary Care Provider Specialty: Family Practice Address: [address] [place] [address], [id number] Email: [email or web address] Plan Of Care PT-OP-T Assessment and Plan Start: 10/13/19 15:45 Freq: Status: Active Protocol: Document 10/13/19 15:47 EG (Rec: 10/13/19 16:33 EG [email or web address]) Physical Therapy Assessment Rehab Potential Rehabilitation Potential Excellent Evaluation Complexity Number of Personal Factors/Comorbidities 1-2 Number of Body Systems Impaired 4 or More Clinical Presentation at Evaluation Stable Impairments Impairments Activity Tolerance,Functional Activities,Functional Mobility ,Pain,ROM,Strength Goals Five Impairment Strength Short Term Goal (STG) Patient will perform 40 body squats with no knee valgus bilaterally in 2 weeks. STG Duration 2 weeks. Painter Shipyard Goal (LTG) Patient will be taught hip abduction and hip extension strength therapeutic exercises in order to increase strength and neuromuscular connection of these muscles to 4+/5 bilaterally in 4 weeks. Four Impairment Pain Short Term Goal (STG) Patient will have no more than a 2/10 pain with centralized pain in lower back without radiating pain with repeated lumbar flexion in 2 weeks. STG Duration 2 weeks Painter Shipyard Goal (LTG) Patient will report 0/10 radiating pain when seated for longer than 60 minutes in 4 weeks. LTG Duration 4 weeks Three Impairment ROM Short Term Goal (STG) Patient will have (-) test in L leg with SLR in 4 weeks. STG Duration 4 weeks Assessment Summary Assessment Patient has been experiencing sciatic nerve pain down the L posterior leg during sedentary and flexion activities due to irritation of sciatic nerve when immobile potentially due to seated posture that is stemmed from lumbar spine. Patient did have peripheral symptoms with repeated flexion and centralized symptoms with lumbar extension increasing liklihood patient has an extension bias. Patient should progress with extension exercises as well as sciatic nerve glides to help with decreased tension of sciatic nerve during daily mobility exercises. Patient will also benefit from posterior and lateral hip strengthening exercises to help patient with stabilization during standing exercises as well as to encourage good mechanics with daily squats. Patient's symptoms are decreased as of now but she will benefit from core strengthening and postural education to prevent the pain from returning. Physical Therapy Plan Frequency and Duration Frequency of Treatment 1x/Week Duration of Treatment 4 weeks Plan of Care Start Date 10/13/19 Plan of Care End Date 11/10/19 Therapeutic Interventions Therapeutic Interventions Balance Training,Gait Training ,Home Exercise Program,Manual Therapy,Neuromuscular Re- education,Self-Care/Home Management,Soft Tissue Mobilization,Therapeutic Activities,Therapeutic Exercises Modalities Cold Pack/Ice Massage,Electric Stimulation Next Visit Focus/Plan Next Note Type Treatment Note Next Visit Plan Assess how HEP is going. Introduce increased lumbar extension exercises and seated sciatic nerve glides. Squat instrument mechanic weapons system education and increased hip abduction strengthening Plan of Care Dates Plan of Care Start Date 10/13/19 Plan of Care End Date 11/10/19 IJoselyn, DPT, supervised all treatment performed by, and agreed with the plan of care, as performed by Puja Mccarthy, KATHERIN. Electronically Signed by: Joselyn Osullivan, PT 10/13/19 1326 Please Sign and Return: I have reviewed this Plan of Care and certify that the skilled therapy services above are required to meet the patient?s needs. Physician Signature Date Printed Name and Credentials Clinical Instructor Signature Printed Name and Credentials
--- NOTE | 2019-10-17 15:20 | PT.OTN ---
Current Diagnoses Sciatica, unspecified side (10/17/19) Physical Therapy Treatment Note PT-OP-A Visit Information Start: 10/13/19 15:45 Freq: Status: Active Protocol: Document 10/17/19 12:35 EG (Rec: 10/17/19 12:36 EG [email or web address]) Out-Patient Physical Therapy Visit Information Visit Information Visit Type Discharge Summary Visit Start Time 10:30 Visit Stop Time 11:15 Total Visit Minutes 45 Visit Number 2 Number of INSIDE SALES ADVISOR Visits 0 PT-OP-B Current Condition Start: 10/13/19 15:45 Freq: Status: Active Protocol: Document 10/13/19 15:47 EG (Rec: 10/13/19 16:00 EG [email or web address]) Current Condition History of Current Condition Onset Date 6 months ago Current Complaints pain down L leg History of Current Condition Patient is a 79 year old female who reports to physical therapy for the complaint of pain down her L leg when she is sitting or laying down on her back. The pain started about 6 months ago while she was dealing with a stressful move and she would feel a sharp pain going down her L leg when she was seated or lying down to go to sleep. It would not be as bad in the morning. She couldn't tell which movements were causing her to have the pain either. She feels relief when standing or biking. Patient also mentioned that at the worst, the pain was a 6/10 and currently she said the pain was very minimal. When she felt the pain go down her L leg, it would go all the way to her foot. She started to wake up and do 40 squats ( which she demonstrated) and thinks this may have helped her pain. Since 6 months ago, the pain has decreased significantly and now her goal for PT is just looking for ways to handle the pain in case it comes back. Prior Treatments and Tests She felt this same pain years ago and never had imaging or PT. No current imaging. Treatment Goals Patient/Caregiver Goals Patient would like to learn what to do in case the pain comes back in the same intensity as before. Patient would also like to prevent the pain from coming back. Prior Functional Status Baseline Function- ADL's Independent Baseline Function- Mobility Independent Baseline Function- Gait Independent Baseline Function- Work/School Retired Baseline Function- Recreation/Hobbies Road Biker, Enjoys walking Current Functional Impairments (Reported) Functional Limitations- ADL's Lying supine in bed; sitting for long periods of time Functional Limitations- Other Does not limit her everyday activities but she is aware of the pain during everyday activities Personal Factors Other Personal Factors That May Effect Lives with and has Therapy/Recovery stairs in the house. Active. Prior history of Neck pain. Arthritis. PT-OP-C Subjective Start: 10/13/19 15:45 Freq: Status: Active Protocol: Document 10/17/19 12:35 EG (Rec: 10/17/19 13:00 EG [email or web address]) OP-PT Subjective Patient Comments Patient Comments Patient reported that she is doing much better and she hasn 't had time to do the exercises at home. She did go for a 2.5 hour hike yesterday which she did not get any pain or have any symptoms. She feels as if she is feeling fine and does not need nor have time to come in to physical therapy appointments. Patient Reported Progress Improving PT-OP-E Functional Tests Start: 10/13/19 15:45 Freq: Status: Active Protocol: Document 10/13/19 15:47 EG (Rec: 10/13/19 16:00 EG [email or web address]) Functional Tests Squat Test Comments Extreme valgus in bilateral knees with squat PT-OP-J Posture/Palpation/Skin Start: 10/13/19 15:45 Freq: Status: Active Protocol: Document 10/13/19 15:47 EG (Rec: 10/13/19 16:09 EG [email or web address]) Posture Evaluation Position Standing Evaluation View Posterior Pelvis Posture Neutral Weight Distribution Balanced Hip Posture (L) Neutral,(R) Neutral Palpation Assessment Location L gluteal tendon/piriformis Palpation Location L piriformis/gluteal tendons Palpation Findings None/Normal Palpation Details No p! with palpation L2-L5 Palpation Location PA mobilization Palpation Details relieved pain for patient PT-OP-K Range of Motion Start: 10/13/19 15:45 Freq: Status: Active Protocol: Document 10/13/19 15:47 EG (Rec: 10/13/19 16:09 EG [email or web address]) Lumbar Spine Range of Motion Lumbar Spine Active Degrees Testing Position Standing Flexion 40 Extension 20 Lateral Flexion Left 20 Lateral Flexion Right 15 Comments p! with repeated flexion Hip Goniometric Range of Motion Hip Left Active Hip ROM WFL Yes Testing Position Supine Right Active Hip ROM WFL Yes Testing Position Supine PT-OP-L Special Tests Start: 10/13/19 15:45 Freq: Status: Active Protocol: Document 10/13/19 15:47 EG (Rec: 10/13/19 16:09 EG [email or web address]) Special Tests Lumbar Spine Special Tests Straight Leg Raise Test Results + Comments L side Slump Test Results - Hip Special Tests FADIR Test Results - DMITRY Test Results - PT-OP-M Strength Start: 10/13/19 15:45 Freq: Status: Active Protocol: Document 10/13/19 15:47 EG (Rec: 10/13/19 16:09 EG [email or web address]) Hip Strength Hip Manual Muscle Testing Right Extension (S1) 4- Good- Abduction 4- Good- Left Extension (S1) 4- Good- Abduction 4- Good- PT-OP-Q Treatments Start: 10/13/19 15:45 Freq: Status: Active Protocol: Document 10/17/19 12:35 EG (Rec: 10/17/19 13:00 EG [email or web address]) Gym Equipment Shuttle Recovery Bilateral/Unilateral squats Details Bilateral: 150#, Unilateral: 75# Shuttle Recovery Platform Stable Reps/Time 15x each Therapeutic Exercises Supine Exercises TA marches Supine Exercise Name TA Marches Reps/Minutes 20x Comments done with legs at 90/90 with TA engagement and alternating leg lower 2 Supine Exercise Name Sciatic Nerve Glides Side left Reps/Minutes 5x Comments Given as HEP Prone Exercises Cobra/ Lumbar Extension Prone Exercise Name Lumbar extension press up Reps/Minutes 10x Comments given as HEP. Stop before increase in pain Sidelying Exercises straight leg hip abduction Sidelying Exercise Name Sidelying straight leg hip abduction Side bilateral Reps/Minutes 15x each Comments instructed and done with correct form Clams Sidelying Exercise Name Clams Side bilateral Reps/Minutes 90 sec each side Comments given as HEP Therapeutic Activity Therapeutic Activity 1 Name Squat Training Comments Taught how to perform sit to stand with band around legs to emphasize abduction when coming to standing. Given verbal and visual cues to improve squating form when done at home. PT-OP-T Assessment and Plan Start: 10/13/19 15:45 Freq: Status: Active Protocol: Document 10/17/19 12:35 EG (Rec: 10/17/19 13:00 EG [email or web address]) Physical Therapy Assessment Goals Five Impairment Strength Short Term Goal (STG) Patient will perform 40 body squats with no knee valgus bilaterally in 2 weeks. STG Duration MET Senior Living Goal (LTG) Patient will be taught hip abduction and hip extension strength therapeutic exercises in order to increase strength and neuromuscular connection of these muscles to 4+/5 bilaterally in 4 weeks. LTG Duration Partially met - exercises taught for home use Four Impairment Pain Short Term Goal (STG) Patient will have no more than a 2/10 pain with centralized pain in lower back without radiating pain with repeated lumbar flexion in 2 weeks. STG Duration 2 weeks Speech Pathology Teacher Goal (LTG) Patient will report 0/10 radiating pain when seated for longer than 60 minutes in 4 weeks. LTG Duration 4 weeks Progress Towards Goals Progress Towards Goals Progressing Toward Goals Progress Comments Patient is at PLOF and increased activity level without complaint of pain. Assessment Summary Assessment Patient has been asymptomatic and reports not having time to do HEP at home due to other activities in life. She has not any flare ups in pain but was given program to continue at home to help decrease chance of reoccurance of symptoms. Patient does continue to do squats in the morning and was educated on correct form and mechanics to prevent further injury and emphasize strengthening of gluteal and posterior musculature to help stabilize patient during hiking or biking activities at home. Physical Therapy Plan Discharge Physical Therapy Discharge Reasons Patient Request Discharge Comments Patient feels that she is ready for discharge due to limited time and the nature of her symptoms being minimal. Joselyn Godinez DPT, supervised all treatment performed by, and agreed with the plan of care, as performed by Puja Mccarthy, KATHERIN.
== END 2019-11-16 13:04 ==
LOC: PHYS 10:30
PROVIDERS: PCP Student in an Organized Health Care Education/Training Program; Visit Provider Student in an Organized Health Care Education/Training Program
DX: M54.30 Sciatica, unspecified side (principal)
CPT/HCPCS: 97110; 97161; 97530

== ENCOUNTER → 2019-12-11 11:55 | Outpatient (CLI) | payer MEDICARE, OTHER, SELFPAY ==
--- NOTE | 2019-12-11 | DI.RAD.S_ITS ---
PROCEDURE: XR CHEST 2V INDICATIONS: BLOODY SPUTUM X3 DAYS W/ NO SX, 30 PACK YR HX TECHNIQUE: 2 views of the chest were acquired. COMPARISON: [facility], CHEST 2 VIEW, 04/26/2013, 10:13. [facility], CHEST 2 VIEW, 09/28/2013, 11:49. FINDINGS: Surgical changes and devices: None. Lungs and pleura: Increased prominence of the left upper lobe lesion can be seen laterally. No pleural effusions or pneumothorax. Mediastinum: The cardiac contours are within normal limits. The aorta demonstrates calcification and tortuosity. Bones and chest wall: No suspicious bony abnormalities. Soft tissues appear unremarkable. IMPRESSION: Increased prominence can be seen of this patient's known left upper lobe lesion laterally. For this patient's presenting history of hemoptysis in a smoker, please consider a dedicated chest CT with contrast for further evaluation. Dictated by: Ed Calloway M.D. on 12/11/2019 at 12:10 Approved by: Ed Calloway M.D. on 12/11/2019 at 12:12
== END ==
PROVIDERS: PCP Student in an Organized Health Care Education/Training Program; Referring Provider Student in an Organized Health Care Education/Training Program; Visit Provider Student in an Organized Health Care Education/Training Program
DX: R04.2 Hemoptysis (principal); Z87.891 Personal history of nicotine dependence
CPT/HCPCS: 71046

== ENCOUNTER → 2019-12-18 13:07 | Outpatient (CLI) | payer MEDICARE, OTHER, SELFPAY ==
--- NOTE | 2019-12-18 13:12 | DI.CT.S_ITS ---
PROCEDURE: CT CHEST W CON INDICATIONS: Hemoptysis TECHNIQUE: After the administration of intravenous contrast, 5 mm thick sections acquired from the pulmonary apices to the posterior costophrenic angles. 1 mm axial lung, 5 mm thick coronal and sagittal reformats and 7 mm axial MIP were acquired. For radiation dose reduction, the following was used: automated exposure control, adjustment of mA and/or kV according to patient size. COMPARISON: [facility], , XR CHEST 2V, 12/11/2019, 11:55. [facility], , CHEST 2 VIEW, 02/26/2009, 10:18. [facility], , CHEST 2 VIEW, 04/26/2013, 10:13. FINDINGS: Image quality: Excellent. Lungs and pleura: Within the lung parenchyma there are patchy areas of alveolar air space disease and also lung and adjacent pleural scarring is best seen over the upper lobes bilaterally, greatest at the right apex when compared to the left. Areas of chronic appearing bronchitis appear present, with mild bronchial wall thickening tracking to several of the patchy areas of airspace disease a definite focal malignant appearing mass is not found.. No pleural effusions or pneumothorax. Central and peripheral airways are patent and normal in caliber. Mediastinum: Heart size is normal. No pericardial effusion. No mediastinal or hilar adenopathy by size criteria. Thoracic aorta and central pulmonary arteries are normal in size. Esophagus is normal in caliber. No hiatal hernia. Bones and chest wall: No suspicious bony lesions. No vertebral body compression fractures. No axillary or supraclavicular adenopathy by size criteria. Thyroid gland appears normal where well seen. Abdomen: Visualized upper abdominal solid organs appear normal. Upper abdominal bowel loops are normal in caliber. IMPRESSION: 1. Patchy airspace disease, greatest over the upper lobes bilaterally, but also present within the mid and lower lungs to a lesser degree is present, likely chronic and associated with mild lung parenchymal and pleural scarring best seen over the apices greater on the right than the left. Portions of this pattern of chronic lung disease is present in the area of recent plain film concern from 12/11/19 left upper lobe. A malignant appearing mass in this area is not found. 2. Chronic bronchitis, mild in overall severity, without bronchiectasis. 3. Partial visualization of the upper margin of the abdomen, including the right adrenal area where the adrenal gland appears calcified but not enlarged. Dictated by: Tate Siddiqui M.D. on 12/18/2019 at 14:37 Approved by: Tate Siddiqui M.D. on 12/18/2019 at 14:46
== END ==
PROVIDERS: PCP Student in an Organized Health Care Education/Training Program; Referring Provider Student in an Organized Health Care Education/Training Program; Visit Provider Student in an Organized Health Care Education/Training Program
DX: R04.2 Hemoptysis (principal); J42 Unspecified chronic bronchitis
CPT/HCPCS: 71260; Q9967

== ENCOUNTER → 2021-02-11 09:44 | Outpatient (CLI) | payer MEDICARE, OTHER, SELFPAY | PROVIDERS: PCP Student in an Organized Health Care Education/Training Program; Referring Provider Student in an Organized Health Care Education/Training Program; Visit Provider Student in an Organized Health Care Education/Training Program | DX: M85.852 Other specified disorders of bone density and structure, left thigh (principal); Z78.0 Asymptomatic menopausal state; Z87.891 Personal history of nicotine dependence | CPT/HCPCS: 77080; C9803 ==

== ENCOUNTER → 2021-04-28 17:01 | Outpatient (ROUT) | payer MEDICARE, OTHER, SELFPAY ==
[2021-04-28 18:06] LABS: COVID19 -Nasal RAPID Negative (Negative)
== END ==
PROVIDERS: PCP Student in an Organized Health Care Education/Training Program; Visit Provider Student in an Organized Health Care Education/Training Program
DX: Z20.822 Contact with and (suspected) exposure to COVID-19 (principal)
CPT/HCPCS: 87635

== ENCOUNTER → 2021-04-29 08:58 | Outpatient (CLI) | payer MEDICARE, OTHER, SELFPAY ==
--- NOTE | 2021-05-07 11:03 | PM.PFT.1 ---
Pulmonary Function Test Referral & Results Date Patient Seen: 04/29/21 Requesting provider: Santa Santiago Results: The spirometry demonstrates an FVC of 1.82 L which is 85% of predicted. The FEV1 was measured at 1.13 L which is 72% of predicted. The FEV1/FVC ratio was a 62 which is 83% of predicted. Following the administration of bronchodilator there was 21% improvement in FEV1 and a 64% improvement in FEF 25-75%. Lung volumes show an SVC of 2.10 L which is 92% of predicted. The diffusing capacity was measured at 11.70 which is 62% of predicted. No hemoglobin value was provided, so no correction for potential anemia could be made, if appropriate. The maximum voluntary ventilation was reduced Interpretation: This study demonstrates possible mild obstructive lung disease with evidence of significant benefit following bronchodilator based on improvement in FEV1 and FEF 25-75% as above Lung volumes are normal but there is a moderate reduction in diffusing capacity suggesting element of disease at the capillary alveolar level Compared to PFTs performed in September 2013, current study is probably unchanged
== END ==
PROVIDERS: PCP Student in an Organized Health Care Education/Training Program; Referring Provider Student in an Organized Health Care Education/Training Program; Visit Provider Student in an Organized Health Care Education/Training Program
DX: J44.9 Chronic obstructive pulmonary disease, unspecified (principal); Z87.891 Personal history of nicotine dependence
CPT/HCPCS: 94060; 94726; 94729

== ENCOUNTER → 2021-10-21 17:03 | Outpatient (CLI) | payer MEDICARE, OTHER, SELFPAY ==
[2021-10-21 17:59] LABS: COVID19 -Nasal RAPID Negative (Negative)
== END ==
PROVIDERS: PCP Student in an Organized Health Care Education/Training Program; Visit Provider Nurse Practitioner Critical Care Medicine
DX: Z20.822 Contact with and (suspected) exposure to COVID-19 (principal)
CPT/HCPCS: 87635

== ENCOUNTER → 2022-03-02 12:39 | Outpatient (CLI) | payer MEDICARE, OTHER, SELFPAY ==
--- NOTE | 2022-03-02 | DI.RAD.S_ITS ---
PROCEDURE: XR CHEST 2V INDICATIONS: Chronic obstructive pulmonary disease, unspecified TECHNIQUE: 2 views of the chest were acquired. COMPARISON: CT, CT CHEST W CON, 12/18/2019, 13:00. [facility], CR, XR CHEST 2V, 12/11/2019, 11:55. [facility], CR, CHEST 2 VIEW, 09/28/2013, 11:49. FINDINGS: Surgical changes and devices: None. Lungs and pleura: Minimal patchy opacity in the left upper lobe appears similar to 2020. Likely scarring. Pleural apical scarring. Prominent interstitial markings. No pleural effusions or pneumothorax. Mediastinum: Mediastinal contours are unchanged. Aortic arch atherosclerotic calcifications. Heart size is normal. Bones and chest wall: No suspicious bony abnormalities. Soft tissues appear unremarkable. IMPRESSION: No acute cardiopulmonary abnormality. Suspect scarring at the lung apices and left upper lobe. These findings are similar to the prior exam from 2019. Consider further evaluation with CT of the chest. Dictated by: Paolo Trivedi M.D. on 03/02/2022 at 13:59 Approved by: Paolo Trivedi M.D. on 03/02/2022 at 14:03
== END ==
PROVIDERS: PCP Student in an Organized Health Care Education/Training Program; Referring Provider Student in an Organized Health Care Education/Training Program; Visit Provider Student in an Organized Health Care Education/Training Program
DX: J44.9 Chronic obstructive pulmonary disease, unspecified (principal)
CPT/HCPCS: 71046

== ENCOUNTER → 2022-03-17 12:11 | Outpatient (CLI) | payer MEDICARE, OTHER, SELFPAY ==
--- NOTE | 2022-03-17 | DI.CT.S_ITS ---
PROCEDURE: CT CHEST W CON INDICATIONS: Other specified cough TECHNIQUE: After the administration of intravenous contrast, 5 mm thick sections acquired from the pulmonary apices to the posterior costophrenic angles. 1 mm axial lung, 5 mm thick coronal and sagittal reformats and 7 mm axial MIP were acquired. For radiation dose reduction, the following was used: automated exposure control, adjustment of mA and/or kV according to patient size. COMPARISON: [facility], CT, CT CHEST W CON, 12/18/2019, 13:00. FINDINGS: Image quality: Excellent. Lungs and pleura: Biapical pleural thickening and scarring , similar to the prior exam. Multiple small pulmonary nodules all remain similar to the prior exam. There is a ground-glass opacity in the right upper lobe on image 3/107 measuring 1.2 cm, previously 1.1 cm. Solid nodule on image 3/109 in the left upper lobe anteriorly measures 6 mm, stable from the prior. Left lateral bronchiectasis and nodularity in the left upper lobe on the same image is also similar. Multiple additional smaller pleural based nodules present in both lobes Mediastinum: Heart size is normal. No pericardial effusion. No mediastinal or hilar adenopathy by size criteria. Thoracic aorta and central pulmonary arteries are normal in size. Esophagus is normal in caliber. No hiatal hernia. Atherosclerotic vascular calcification noted in the aortic arch. Bones and chest wall: No suspicious bony lesions. No vertebral body compression fractures. No axillary or supraclavicular adenopathy by size criteria. Thyroid gland unremarkable . Abdomen: Visualized upper abdominal solid organs appear normal. Upper abdominal bowel loops are normal in caliber. Calcified right adrenal gland, stable IMPRESSION: 1. Small bilateral chronic appearing pleural and subpleural nodules some of which are associated with bronchiectasis are all stable from the prior exam. Stable biapical pulmonary scarring present as well. Approved by: Germain Morocho M.D. on 03/17/2022 at 17:35
== END ==
PROVIDERS: PCP Family Medicine; Referring Provider Internal Medicine; Visit Provider Internal Medicine
DX: R05.8 Other specified cough (principal); R91.8 Other nonspecific abnormal finding of lung field; J47.9 Bronchiectasis, uncomplicated; J98.4 Other disorders of lung
CPT/HCPCS: 71260; Q9967

== ENCOUNTER → 2022-04-24 11:27 | Outpatient (CLI) | payer MEDICARE, OTHER, SELFPAY ==
[2022-04-24 12:14] LABS: COVID19 -Nasal RAPID Negative (Negative)
== END ==
PROVIDERS: PCP Family Medicine; Referring Provider Internal Medicine; Visit Provider Internal Medicine
DX: Z20.822 Contact with and (suspected) exposure to COVID-19 (principal)
CPT/HCPCS: 87635; C9803

== ENCOUNTER → 2022-04-24 11:29 | Outpatient (CLI) | payer MEDICARE, OTHER, SELFPAY ==
--- NOTE | 2022-04-29 09:10 | PM.PFT.1 ---
Pulmonary Function Test Referral & Results Date Patient Seen: 04/24/22 Requesting provider: Santa Santiago Results: The spirometry demonstrates an FVC of 1.60 L which is 76% of predicted. The FEV1 was measured at 1.04 L which is 67% of predicted. The FEV1/FVC ratio was 65 which is 87% of predicted. Following the administration of bronchodilator there was a 23% improvement in FEV1 and a 94% improvement in FEF 25-75%. Lung volumes show an SVC of 1.80 L which is 80% of predicted. The diffusing capacity was measured at 11.07 which is 58% of predicted. No hemoglobin value was provided, so no correction for potential anemia could be made, if appropriate. The maximum voluntary ventilation was reduced Interpretation: This study demonstrates probably moderate obstructive lung disease based on reduction FEV1 with evidence of significant benefit following bronchodilator administration as above There is also [id number] lung volume reduction suggesting restrictive lung disease is present There is also moderate reduction diffusing capacity suggesting element of disease at the capillary alveolar level Altogether this is consistent with a diagnosis of COPD, clinical correlation suggested
== END ==
PROVIDERS: PCP Family Medicine; Referring Provider Student in an Organized Health Care Education/Training Program; Visit Provider Student in an Organized Health Care Education/Training Program
DX: J45.40 Moderate persistent asthma, uncomplicated (principal); J44.9 Chronic obstructive pulmonary disease, unspecified; Z20.822 Contact with and (suspected) exposure to COVID-19; Z87.891 Personal history of nicotine dependence
CPT/HCPCS: 87635; 94060; 94726; 94729; C9803

== ENCOUNTER 2022-10-22 09:14 | Emergency (ER) | payer MEDICARE, OTHER, SELFPAY ==
[2022-10-22] VITALS (11 sets, daily range): BP systolic 146–187; BP diastolic 65–79; PULSE 64–92; RESP 12–19; TEMP 36.7; O2SAT 96–99; BMI 20.5
--- NOTE | 2022-10-22 09:24 | DI.CT.S_ITS ---
PROCEDURE: CT HEAD/BRAIN WO CON INDICATIONS: Positive BE-FAST, Stroke symptoms TECHNIQUE: Noncontrast 4.5 mm thick angled axial sections acquired from the foramen magnum to the vertex, with coronal and sagittal reformats. For radiation dose reduction, the following was used: automated exposure control, adjustment of mA and/or kV according to patient size. COMPARISON: [facility], MR, BRAIN W&WO CONTRAST, 04/10/2015, 10:36. FINDINGS: Image quality: Excellent. CSF spaces: Basal cisterns are patent. No extra-axial fluid collections. Ventricles are normal in size and shape. Brain: No midline shift. No intracranial masses or hemorrhage. No area of hypodensity in a large vascular distribution to suggest acute infarction. Periventricular hypodensity consistent with chronic microvascular ischemic change. Age-related parenchymal loss. Skull and face: Calvarium and visualized facial bones are intact, without suspicious lesions. Sinuses: Visualized sinuses and mastoids are clear. IMPRESSION: No acute intracranial abnormality. Chronic microvascular ischemic disease. Dictated by: Paolo Trivedi M.D. on 10/22/2022 at 10:02 Approved by: Paolo Trivedi M.D. on 10/22/2022 at 10:05
--- NOTE | 2022-10-22 09:24 | DI.RAD.S_ITS ---
PROCEDURE: XR CHEST 1V INDICATIONS: Possible stroke TECHNIQUE: One view of the chest was acquired. COMPARISON: [facility], CR, XR CHEST 2V, 03/02/2022, 12:36. [facility], CR, XR CHEST 2V, 12/11/2019, 11:55. FINDINGS: Surgical changes and devices: None. Lungs and pleura: Lungs are clear. No pleural effusions or pneumothorax. Mediastinum: Mediastinal contours appear unchanged. Heart size is normal. Bones and chest wall: No suspicious bony lesions. Overlying soft tissues appear unremarkable. IMPRESSION: No acute cardiopulmonary abnormality. Dictated by: Paolo Trivedi M.D. on 10/22/2022 at 10:05 Approved by: Paolo Trivedi M.D. on 10/22/2022 at 10:06
--- NOTE | 2022-10-22 09:28 | DI.CT.S_ITS ---
PROCEDURE: CT ANGIO HEAD AND NECK INDICATIONS: vision loss, saw eye doctor yesterday told might be a TIA TECHNIQUE: Noncontrast images were performed earlier in the day and not repeated. After the administration of intravenous contrast, 1 mm thick sections acquired from the aortic arch through the [place] of Lu. Post-contrast 4.5 mm thick sections then re-acquired from the foramen magnum to the vertex. 3-dimensional nhptcbx-lhdjianfe-nmvvnniyhe (MIP) and/or volume rendering reformats were acquired of the central intracranial vasculature and neck separately. For radiation dose reduction, the following was used: automated exposure control, adjustment of mA and/or kV according to patient size. COMPARISON: [facility], CT, CT CHEST W CON, 03/17/2022, 12:34. [facility], MR, BRAIN W&WO CONTRAST, 04/10/2015, 10:36. [facility], CT, CT HEAD/BRAIN WO CON, 10/22/2022, 9:42. FINDINGS: Image quality: Excellent. BRAIN: CSF spaces: Ventricles are normal in size and shape. Basal cisterns are patent. No extra-axial fluid collections. Brain: No midline shift. No intracranial bleeds or masses. Banuelos-white matter interface appears intact. Skull and face: Calvarium and facial bones appear intact, without suspicious lesions. Orbits appear normal. Sinuses: Sinuses and mastoids are clear. HEAD CT ANGIOGRAPHY: Anterior circulation: Intracranial internal carotid arteries demonstrate atherosclerotic irregularity and calcification, with approximately 50% narrowing seen on each side.. The flow within the paired anterior cerebral arteries is normal and symmetric. The flow within the middle cerebral arteries is normal and symmetric. The anterior communicating artery is seen. No aneurysms are seen. Posterior circulation: The right V4 segment is within normal limits. The left V4 segment largely terminates in the left posterior inferior cerebellar artery. There is a normal appearing basilar artery. There is a prominent left posterior communicating artery seen, with an accompanying diminutive left P1 segment. This is attributed to a type origin of the left posterior cerebral artery, which is considered to be a normal developmental variant of typically no clinical consequence. Flow within the posterior cerebral arteries is normal and symmetric. No aneurysms are seen. NECK CT ANGIOGRAPHY: Carotid system: The great vessels demonstrate a conventional anatomy as they arise from the aortic arch. The origins of the common carotid arteries appear patent. The common carotid arteries demonstrate normal caliber and courses. The bifurcation regions are both widely patent. The internal carotid arteries demonstrate normal calibers and courses. Posterior circulation: The origins of the vertebral arteries both appear widely patent. The more superior extracranial portions of both vertebral arteries also demonstrate normal courses and calibers. The right vertebral artery is dominant to the left. Soft tissues: Visualized neck soft tissues demonstrate no suspicious abnormalities. There is poorly defined opacity seen at both lung apices, right worse than left. This is similar to the prior chest CT dated 03/17/2022. Bones: No suspicious bony lesions. Visualized cervical spine appears normally aligned. There is at least moderate cervical spine degenerative change. IMPRESSION: No significant intracranial arterial abnormality is seen. Within the arteries of the neck, no hemodynamically significant stenosis can be seen. At the lung apices, opacity can be seen, which is similar to prior chest CT. If there is strong clinical suspicion for an acute stroke, please consider a brain MRI for further evaluation, as it is more sensitive (assuming that there is no contraindication to MRI). 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 Dictated by: Ed Calloway M.D. on 10/22/2022 at 9:44 Approved by: Ed Calloway M.D. on 10/22/2022 at 9:54
[2022-10-22 09:47] LABS: Add Manual Diff / Slide Review NO; Basophils Absolute Auto 0 /uL (0-100); Eosinophils Absolute Auto 100 /uL (0-450); Eosinophils Percent Auto 1.8 % (2-4); Hematocrit 38.4 % (36-46); Hemoglobin 13.2 g/dL (12.0-16.0); Lymphocytes Absolute Auto 1200 /uL (1100-4500); Mean Corpuscular HGB Conc 34.4 % (30-36); Monocytes Absolute Auto 500 /uL (0-900); Monocytes Percent Auto 11.4 % (3-14); Neutrophils Absolute Auto 2400 /uL (1500-7000); Neutrophils Percent Auto 57.8 % (50-75); Platelet Count 207 X10^3/uL (150-400); Red Blood Cell Count 4.41 X10^6/uL (4.0-5.2); Red Cell Distribution Width 13.8 % (11.6-14.8); White Blood Cell Count 4.2 X10^3/uL (4.5-11.0)
[2022-10-22 09:49] LABS: Prothrombin Time 11.7 SECONDS (10.1-12.7)
[2022-10-22 09:52] LABS: PTT Partial Thromboplastin Tim 29 SECONDS (26-36)
[2022-10-22 10:04] LABS: Alanine Aminotransferase 26 IU/L (<35); Albumin 4.5 g/dL (3.5-5.0); Albumin Globulin Ratio 1.4 (1.0-2.8); Alkaline Phosphatase 63 U/L (38-126); Aspartate Aminotransferase 42 IU/L (14-36); BUN Creatinine Ratio 19.8 (6-22); Bilirubin Total 1.6 mg/dL (0.2-1.3); Blood Urea Nitrogen 16 mg/dL (7-17); Calcium 9.2 mg/dL (8.4-10.2); Carbon Dioxide 29 mmol/L (22-32); Chloride 96 mmol/L (98-107); Creatine Kinase 178 U/L (30-135); Estimated Glomerular Filt Rate > 60 mL/min (>60); Globulin 3.3 g/dL (1.7-4.1); Glucose 79 mg/dL (80-110); HEMOLYSIS 19 (0-50); Magnesium 1.8 mg/dL (1.6-2.3); Potassium 4.1 mmol/L (3.4-5.1); Sodium 133 mmol/L (137-145); Total Protein 7.8 g/dL (6.3-8.2)
[2022-10-22 10:16] LABS: Troponin I < 0.012 ng/mL (0.01-0.034)
[2022-10-22 10:20] LABS: CKMB % Relative Index 1.6 % (1.5-5.0); Creatine Kinase MB 2.84 ng/mL (<2.37)
[2022-10-22 10:36] LABS: Appearance Urine UA CLEAR; Bilirubin Urine UA NEGATIVE (NEGATIVE); Color Urine UA YELLOW; Glucose Urine UA NEGATIVE (Negative); Ketones Urine UA NEGATIVE (NEGATIVE); Leukocyte Esterase Urine UA TRACE (NEGATIVE); Nitrite Urine UA NEGATIVE (Negative); Occult Blood Urine UA NEGATIVE (Negative); Protein Urine UA NEGATIVE (Negative); Urobilinogen Urine UA 0.2 E.U./dL (0.2)
[2022-10-22 10:59] LABS: pH Urine UA 7.5 (4.5-8.0)
[2022-10-22 11:00] LABS: Bacteria Urine Few (2-10); Culture Indicated Urine Specimen Cultured; RBC Urine None Seen (0-5/HPF); Squamous Epithelial Cell Urine 0-1 /HPF (0-5/HPF); Ur Creatinine Normal (Normal); Ur Specific Gravity Normal (Normal); Urine pH Normal (Normal); WBC Urine 0-1/HPF (0-5/HPF)
[2022-10-22 11:01] LABS: UR Morphine/Opiate cutoff 300 Negative (Negative); Urine Amphetamines Negative (Negative); Urine Barbiturates Negative (Negative); Urine Benzodiazepines Negative (Negative); Urine Cocaine Negative (Negative); Urine MDMA Negative (Negative); Urine Methadone Negative (Negative); Urine Methamphetamines Negative (Negative); Urine Oxycodone Negative (Negative); Urine Phencyclidine Negative (Negative); Urine Tetrahydrocannabinol Negative (Negative); Urine Tricyclic Antidepressant Negative (Negative)
--- NOTE | 2022-10-22 11:28 | ED.NEUROSD ---
HPI - Neuro Symptoms/Deficit General Chief Complaint: Neuro Symptoms/Deficit Stated Complaint: DR campuzano thinks TIA yesterday Time Seen by Provider: 10/22/22 09:28 Source: patient Mode of arrival: Ambulatory History of Present Illness HPI Narrative: This is a 82-year-old female with history of osteoporosis, dyslipidemia, chronic hair loss with complaint of vision change for 20 minutes yesterday. Patient states she was changing her sheets she went to get on her computer and realize the vision in her left eye was banuelos. She states it was not black but she could not see anything she states her right eye did not have significant change. Patient states it resolved after 20 minutes she denies any other symptoms. No headaches, no neck pain, no numbness, tingling, weakness, no difficulty with speech, no facial droop, no recurrent vision changes. No chest pain or shortness of breath. No nausea or vomiting. She went to the hull molder who states they think she may have had a TIA yesterday and recommended she follow up with primary care. She called today to set up an appointment and was told to come to the ER for evaluation. Her medications are alendronate, atorvastatin, D3, dustaride, finasteride and albuterol she denies any prior surgeries. No known drug allergies. No tobacco, 1 glass of wine daily, no illicit. Dr. Cortez is her primary care. Duarte Morley is her hull molder. On Anticoagulants: No Related Data Home Medications Medication Instructions Recorded Confirmed atorvastatin 10 mg tablet 10 mg PO DAILY 10/21/21 10/21/21 finasteride 1 mg tablet 1 mg PO DAILY 10/21/21 10/21/21 Allergies Allergy/AdvReac Type Severity Reaction Status Date / Time No Known Drug Allergies Allergy Verified 10/22/22 09:25 Review of Systems Review of Systems ROS Unobtainable: All systems reviewed & are unremarkable except as noted in HPI and below Hematologic/Lymphatic On Anticoagulants: No Patient History Social History Smoking Status: Former smoker Smoking Status: Former smoker alcohol intake frequency: holidays/special occasions only Substance Use Type: does not use Exam Narrative Exam Narrative: GEN: well nourished, well appearing female, alert and oriented x 3, patient appears to be in mild distress. HEENT: Atraumatic, pupils are equal round reactive to light, extraocular movements are intact, nares are clear, TMs are clear with no fluid, there is no conjunctival pallor. Throat is clear without any exudates, erythema, tonsillar enlargement or uvular deviation, no facial droop. HEART: Regular rate and rhythm without murmur, clicks, rubs. Pulses are equal in upper and lower extremities LUNGS:Lungs clear to auscultation, no wheezes, rales, crackles, chest moves symmetrically ABD:bowel sounds normal, soft, non-tender, no guarding, rebound, rigidity, no masses noted, no hepatosplenomegaly :No CVA tenderness MSCL: Non-tender, no muscle atrophy, muscles strength 5/5 upper and lower extremities, full range of motion, normal gait NEURO:CN 2-12 intact, sensation normal, finger nose finger test normal, heel moreno test normal, romberg normal. Normal speech. No dysarthria or aphasia. SKIN: No rash, erythema or other skin changes. Initial Vital Signs Initial Vital Signs: Vital Signs Temperature 98.0 F 10/22/22 09:20 Pulse Rate 82 10/22/22 09:20 Respiratory Rate 15 10/22/22 09:20 Blood Pressure 179/77 H 10/22/22 09:20 Pulse Oximetry 97 10/22/22 09:20 Oxygen Delivery Method 10/22/22 09:20 Scores NIH Stroke Scale Level of Conciousness: Alert, keenly responsive Ask month/age: Answers both questions correctly. Open/close eyes, close hand: Performs both tasks correctly Best gaze horizontal: Normal Visual rehman: No visual loss Facial palsy: Normal symetrical movement Left arm drift: No drift for full 10 sec Right arm drift: No drift for full 10 sec Left leg drift: No drift for full 5 sec Right leg drift: No drift for full 5 sec Limb ataxia: Absent Sensory on face/arms/legs: Normal, no sensory loss Best language: No aphasia, normal Dysarthria: Normal Extinction or inattention: No abnormality Total NIH Stroke scale score: 0 Course Orders Ordered: ED Orders 10/22/22 10:23 Urinalysis and Microscopic Stat Urine Culture Stat Urine Drug Screen, Rapid Stat Discontinued Medications Aspirin (Aspirin 81 Mg Chew Tab) 324 mg PO NOW ONE Stop: 10/22/22 12:52 Last Admin: 02/02/23 13:06 Dose: 324 mg Documented By: AT Vital Signs Vital signs: Vital Signs - 8 hr 10/22/22 11:00 10/22/22 11:30 10/22/22 10:55 Pulse Rate 66 68 65 Respiratory Rate 18 18 14 Blood Pressure 160/71 H 160/74 H Pulse Oximetry 99 97 98 Oxygen Delivery Method Room Air Room Air 10/22/22 11:00 10/22/22 11:00 10/22/22 11:30 Pulse Rate 66 Respiratory Rate 13 Blood Pressure 160/71 H 160/74 H Pulse Oximetry 98 Oxygen Delivery Method 10/22/22 11:30 10/22/22 12:00 10/22/22 12:00 Pulse Rate 68 67 Respiratory Rate 12 19 Blood Pressure 146/65 H Pulse Oximetry 97 96 Oxygen Delivery Method 10/22/22 12:32 10/22/22 13:00 10/22/22 13:01 Pulse Rate 92 H 73 Respiratory Rate 15 Blood Pressure 173/77 H Pulse Oximetry Oxygen Delivery Method 10/22/22 13:01 Pulse Rate 73 Respiratory Rate 17 Blood Pressure Pulse Oximetry 96 Oxygen Delivery Method Room Air MDM - Neuro Symptoms/Deficit Lab Data 10/22/22 09:30 10/22/22 09:30 Labs: Lab Results 10/22/22 10/22/22 10/22/22 Range/Units 09:30 09:30 09:30 WBC 4.2 L (4.5-11.0) X10^3/uL RBC 4.41 (4.0-5.2) X10^6/uL Hgb 13.2 (12.0-16.0) g/dL Hct 38.4 (36-46) % MCV 87.0 (80-100) fL MCH 30.0 (26-34) PG MCHC 34.4 (30-36) % RDW 13.8 (11.6-14.8) % Plt Count 207 (150-400) X10^3/uL Neut % (Auto) 57.8 (50-75) % Lymph % (Auto) 28.0 (25-40) % Jessamine % (Auto) 11.4 (3-14) % Eos % (Auto) 1.8 L (2-4) % Baso % (Auto) 1.0 (0-2) % Neut # (Auto) 2400 (2457-7327) /uL Lymph # (Auto) 1200 (0796-8767) /uL Jessamine # (Auto) 500 (0-900) /uL Eos # (Auto) 100 (0-450) /uL Baso # (Auto) 0 (0-100) /uL PT 11.7 (10.1-12.7) SECONDS INR 1.0 (0.9-1.3) APTT 29 (26-36) SECONDS Sodium 133 L (137-145) mmol/L Potassium 4.1 (3.4-5.1) mmol/L Chloride 96 L (98-107) mmol/L Carbon Dioxide 29 (22-32) mmol/L BUN 16 (7-17) mg/dL Creatinine 0.81 (0.52-1.04) mg/dL Estimated GFR > 60 (>60) mL/min BUN/Creatinine Ratio 19.8 (6-22) Glucose 79 L (80-110) mg/dL Calcium 9.2 (8.4-10.2) mg/dL Magnesium 1.8 (1.6-2.3) mg/dL Total Bilirubin 1.6 H (0.2-1.3) mg/dL AST 42 H (14-36) IU/L ALT 26 (<35) IU/L Alkaline Phosphatase 63 (38-126) U/L Total Creatine Kinase 178 H (30-135) U/L CK-MB (CK-2) 2.84 H (<2.37) ng/mL CK-MB (CK-2) Rel Index 1.6 (1.5-5.0) % Troponin I < 0.012 (0.01-0.034) ng/mL Total Protein 7.8 (6.3-8.2) g/dL Albumin 4.5 (3.5-5.0) g/dL Globulin 3.3 (1.7-4.1) g/dL Albumin/Globulin Ratio 1.4 (1.0-2.8) Urine Color Urine Appearance Urine pH (4.5-8.0) Ur Specific [place] (1.000-1.035) Urine Protein (Negative) Urine Glucose (UA) (Negative) g/dL Urine Ketones (NEGATIVE) Urine Occult Blood (Negative) Urine Nitrate (Negative) Urine Bilirubin (NEGATIVE) Urine Urobilinogen (0.2) E.U./dL Ur Leukocyte Esterase (NEGATIVE) Urine RBC (0-5/HPF) Urine WBC (0-5/HPF) Ur Squamous Epith Cells (0-5/HPF) Urine Bacteria (None) Ur Culture Indicated? U Opiates 300ng/mL cut (Negative) Ur Oxycodone Screen (Negative) Urine Methadone Screen (Negative) Ur Barbiturates Screen (Negative) U Tricyclic Antidepress (Negative) Ur Phencyclidine Scrn (Negative) Ur Amphetamines Screen (Negative) U Methamphetamines Scrn (Negative) Ur MDMA Scrn (Ecstasy) (Negative) U Benzodiazepines Scrn (Negative) Urine Cocaine Screen (Negative) U Marijuana (THC) Screen (Negative) 10/22/22 10/22/22 Range/Units 10:23 10:23 WBC (4.5-11.0) X10^3/uL RBC (4.0-5.2) X10^6/uL Hgb (12.0-16.0) g/dL Hct (36-46) % MCV (80-100) fL MCH (26-34) PG MCHC (30-36) % RDW (11.6-14.8) % Plt Count (150-400) X10^3/uL Neut % (Auto) (50-75) % Lymph % (Auto) (25-40) % Jessamine % (Auto) (3-14) % Eos % (Auto) (2-4) % Baso % (Auto) (0-2) % Neut # (Auto) (4893-6305) /uL Lymph # (Auto) (3210-4645) /uL Jessamine # (Auto) (0-900) /uL Eos # (Auto) (0-450) /uL Baso # (Auto) (0-100) /uL PT (10.1-12.7) SECONDS INR (0.9-1.3) APTT (26-36) SECONDS Sodium (137-145) mmol/L Potassium (3.4-5.1) mmol/L Chloride (98-107) mmol/L Carbon Dioxide (22-32) mmol/L BUN (7-17) mg/dL Creatinine (0.52-1.04) mg/dL Estimated GFR (>60) mL/min BUN/Creatinine Ratio (6-22) Glucose (80-110) mg/dL Calcium (8.4-10.2) mg/dL Magnesium (1.6-2.3) mg/dL Total Bilirubin (0.2-1.3) mg/dL AST (14-36) IU/L ALT (<35) IU/L Alkaline Phosphatase (38-126) U/L Total Creatine Kinase (30-135) U/L CK-MB (CK-2) (<2.37) ng/mL CK-MB (CK-2) Rel Index (1.5-5.0) % Troponin I (0.01-0.034) ng/mL Total Protein (6.3-8.2) g/dL Albumin (3.5-5.0) g/dL Globulin (1.7-4.1) g/dL Albumin/Globulin Ratio (1.0-2.8) Urine Color Yellow Urine Appearance Clear Urine pH 7.5 (4.5-8.0) Ur Specific [place] 1.010 (1.000-1.035) Urine Protein Negative (Negative) Urine Glucose (UA) Negative (Negative) g/dL Urine Ketones Negative (NEGATIVE) Urine Occult Blood Negative (Negative) Urine Nitrate Negative (Negative) Urine Bilirubin Negative (NEGATIVE) Urine Urobilinogen 0.2 (0.2) E.U./dL Ur Leukocyte Esterase Trace H (NEGATIVE) Urine RBC None seen (0-5/HPF) Urine WBC 0-1/hpf (0-5/HPF) Ur Squamous Epith Cells 0-1 /hpf (0-5/HPF) Urine Bacteria Few (2-10) H (None) Ur Culture Indicated? Specimen cultured U Opiates 300ng/mL cut Negative (Negative) Ur Oxycodone Screen Negative (Negative) Urine Methadone Screen Negative (Negative) Ur Barbiturates Screen Negative (Negative) U Tricyclic Antidepress Negative (Negative) Ur Phencyclidine Scrn Negative (Negative) Ur Amphetamines Screen Negative (Negative) U Methamphetamines Scrn Negative (Negative) Ur MDMA Scrn (Ecstasy) Negative (Negative) U Benzodiazepines Scrn Negative (Negative) Urine Cocaine Screen Negative (Negative) U Marijuana (THC) Screen Negative (Negative) Imaging Data CT scan - head: Radiologist's Impression: Sarah Tucker??82??F??1940 ? Allergy/Adv: No Known Drug Allergies (More??) Close Head/Neck CTA (Signed) Ed Calloway - 10/22/[address] (Signed) Call,Paolo - 10/22/22 Chest X-Ray (Signed) Call,Paolo - 10/22/22 PFT Result 04/24/[address] (Signed) Germain Morocho - 03/17/22 Chest X-Ray (Signed) Call,Paolo - 03/02/22 PFT Result 04/29/21 Bone Densitometry 02/11/[address] (Signed) Tate Siddiqui - 12/18/19 Chest X-Ray (Signed) ElliEd kirby - 12/11/19 Cervical Spine MRI (Signed) Edward Phoenix - 12/06/18 Launch?[place] [address] CT Scan Report Signed Patient: Sarah Tucker MR#: [id number] : 1940 Acct:[id number] Age/Sex: 82 / F Date of Service: 10/22/22 Loc: ED Accession Number: [id number] ?? Procedure: CT head/brain wo con Ordering Provider: Erenstine Montenegro D.O. PROCEDURE:? CT HEAD/BRAIN WO CON ? INDICATIONS:? Positive BE-FAST, Stroke symptoms ? TECHNIQUE:? Noncontrast 4.5 mm thick angled axial sections acquired from the foramen magnum to the vertex, with coronal and sagittal reformats.? For radiation dose reduction, the following was used:? automated exposure control, adjustment of mA and/or kV according to patient size.? ? COMPARISON:? [facility], MR, BRAIN W&WO CONTRAST, 04/10/2015, 10:36. ? FINDINGS:? Image quality:? Excellent.? ? CSF spaces:? Basal cisterns are patent.? No extra-axial fluid collections.? Ventricles are normal in size and shape.? ? Brain:? No midline shift.? No intracranial masses or hemorrhage.? No area of hypodensity in a large vascular distribution to suggest acute infarction. Periventricular hypodensity consistent with chronic microvascular ischemic change. Age-related parenchymal loss. ? Skull and face:? Calvarium and visualized facial bones are intact, without suspicious lesions.? ? Sinuses:? Visualized sinuses and mastoids are clear.? ? IMPRESSION:? No acute intracranial abnormality. ? Chronic microvascular ischemic disease. ? ? Dictated by: Paolo Trivedi M.D. on 10/22/2022 at 10:02 ? ? Approved by: Paolo Trivedi M.D. on 10/22/2022 at 10:05?? CTA - brain/neck: Radiologist's Impression: Close Head/Neck CTA (Signed) Ed Calloway - 10/22/[address] (Signed) Call,Paolo - 10/22/22 Chest X-Ray (Signed) Call,Paolo - 10/22/22 PFT Result 04/24/[address] (Signed) Germain Morocho - 03/17/22 Chest X-Ray (Signed) Call,Paolo - 03/02/22 PFT Result 04/29/21 Bone Densitometry 02/11/[address] (Signed) Tate Siddiqui - 12/18/19 Chest X-Ray (Signed) Ed Calloway - 12/11/19 Cervical Spine MRI (Signed) Edward Phoenix - 12/06/18 [place] [address] CT Scan Report Signed Patient: Sarah Tucker MR#: [id number] : 1940 Acct:[id number] Age/Sex: 82 / F Date of Service: 10/22/22 Loc: ED Accession Number: [id number] ?? Procedure: CT angio head and neck Ordering Provider: Ernestine Montenegro D.O. PROCEDURE:? CT ANGIO HEAD AND NECK ? INDICATIONS:? vision loss, saw eye doctor yesterday told might be a TIA ? TECHNIQUE:? Noncontrast images were performed earlier in the day and not repeated.? ? After the administration of intravenous contrast, 1 mm thick sections acquired from the aortic arch through the [place].? Post-contrast 4.5 mm thick sections then re-acquired from the foramen magnum to the vertex.? 3-dimensional djsmtrt-ndgooiunz-gfybzdbfus (MIP) and/or volume rendering reformats were acquired of the central intracranial vasculature and neck separately. For radiation dose reduction, the following was used:? automated exposure control, adjustment of mA and/or kV according to patient size.? ? COMPARISON:? [facility], CT, CT CHEST W CON, 03/17/2022, 12:34.? [facility], MR, BRAIN W&WO CONTRAST, 04/10/2015, 10:36.? [facility], CT, CT HEAD/BRAIN WO CON, 10/22/2022, 9:42. ? FINDINGS:? Image quality:? Excellent.? ? BRAIN:? CSF spaces:? Ventricles are normal in size and shape.? Basal cisterns are patent.? No extra-axial fluid collections.? ? Brain:? No midline shift.? No intracranial bleeds or masses.? Banuelos-white matter interface appears intact.? ? Skull and face:? Calvarium and facial bones appear intact, without suspicious lesions.? Orbits appear normal.? ? Sinuses:? Sinuses and mastoids are clear.? ? HEAD CT ANGIOGRAPHY:? Anterior circulation:? Intracranial internal carotid arteries demonstrate atherosclerotic irregularity and calcification, with approximately 50% narrowing seen on each side..? The flow within the paired anterior cerebral arteries is normal and symmetric.? The flow within the middle cerebral arteries is normal and symmetric.? The anterior communicating artery is seen.? No aneurysms are seen.? ? Posterior circulation:? The right V4 segment is within normal limits.? The left V4 segment largely terminates in the left posterior inferior cerebellar artery.? There is a normal appearing basilar artery.? There is a prominent left posterior communicating artery seen, with an accompanying diminutive left P1 segment. This is attributed to a type origin of the left posterior cerebral artery, which is considered to be a normal developmental variant of typically no clinical consequence. Flow within the posterior cerebral arteries is normal and symmetric.? No aneurysms are seen.? ? NECK CT ANGIOGRAPHY:? Carotid system:? The great vessels demonstrate a conventional anatomy as they arise from the aortic arch.? The origins of the common carotid arteries appear patent.? The common carotid arteries demonstrate normal caliber and courses.? The bifurcation regions are both widely patent.? The internal carotid arteries demonstrate normal calibers and courses.? ? Posterior circulation:? The origins of the vertebral arteries both appear widely patent.? The more superior extracranial portions of both vertebral arteries also demonstrate normal courses and calibers.? The right vertebral artery is dominant to the left. ? Soft tissues:? Visualized neck soft tissues demonstrate no suspicious abnormalities.? There is poorly defined opacity seen at both lung apices, right worse than left.? This is similar to the prior chest CT dated 03/17/2022. ? Bones:? No suspicious bony lesions.? Visualized cervical spine appears normally aligned.? There is at least moderate cervical spine degenerative change. ? ? IMPRESSION:? No significant intracranial arterial abnormality is seen.? ? Within the arteries of the neck, no hemodynamically significant stenosis can be seen. ? ? At the lung apices, opacity can be seen, which is similar to prior chest CT. ? If there is strong clinical suspicion for an acute stroke, please consider a brain MRI for further evaluation, as it is more sensitive (assuming that there is no contraindication to MRI). ? ? ? Additional findings:? Iexayr-ts-Mrdvqj developmental anomalies Right vertebral artery dominant to the left At least moderate cervical spine degenerative change ? ? Any quantitative measurements of stenosis were performed using NASCET criteria.? ? ? Dictated by: Ed Calloway M.D. on 10/22/2022 at 9:44 ? ? Approved by: Ed Calloway M.D. on 10/22/2022 at 9:54?? ECG Data Attestation: I personally reviewed and interpreted this ECG as follows: Prior ECG tracings: not available for review Interpretation: Sinus rhythm with premature atrial complexes rate of 72 KS 158 QRS of [address]TC [address] No acute [address] elevation depression noted. Patient does not have prior for comparison. MDM Narrative Medical decision making narrative: This is an 82-year-old female sent for sudden onset and resolution vision change for 20 minutes yesterday. Patient saw hull molder who states possible TIA so recommended to follow-up with primary care which patient was in process and they told her to come to ER for stroke workup. Patient's head CT, CT angio do not show acute changes or obstructions to the vessels. She has normal CBC with near low white count, negative coags, electrolytes renal function are normal. Glucose 79. Bilirubins 1.6 with an AST of 42, CK 178- troponin negative tox. Patient is asymptomatic in terms of her bilirubin and discussed following up with this to make sure it is not continuing to trend upwards. There was some opacities noted on her CT chest of the upper lungs this was seen on old CT with nodules. Negative for workup. Discharge Plan Departure Patient Disposition: Home Clinical Impression: TIA (transient ischemic attack), Change in vision Instructions: DI for Transient Ischemic Attack Activity Restrictions/Additional Instructions: Please follow-up with Dr. Cortez for recheck. There is a possibility you had a TIA or mini stroke your eye. Please take an aspirin 81 mg daily. Discussed with Dr. Cortez if your cholesterol medicine should be increased for stroke prevention or continued at the same level it is currently. Talk with Dr. Cortez we did not perform MRI, echo or Holter monitor today she may order these as an outpatient. Please return for recurrent symptoms sudden vision loss, severe headaches, new numbness, tingling weakness, difficulty with speech, severe dizziness, passing out or other new or concerning changes. Prescriptions: No Action finasteride 1 mg tablet 1 mg PO DAILY atorvastatin 10 mg tablet 10 mg PO DAILY Referrals: Neelam Cortez MD [Primary Care Provider] - Stand Alone Forms: Patient Portal/API
[2022-10-22] MEDS: ASPIRIN 81 MG CHEW TAB 324 MG PO (13:06)
== END 2022-10-22 13:14 | disposition home or self-care (01) ==
PROVIDERS: Emergency Provider Emergency Medicine; PCP Family Medicine
DX: G45.9 Transient cerebral ischemic attack, unspecified (principal); H53.9 Unspecified visual disturbance
CPT/HCPCS: 36415; 70450; 70496; 70498; 71045; 80053; 80305; 81001; 82550; 82553; 83735; 84484; 85025; 85610; 85730; 87086; 93005; 99285; Q9967

== ENCOUNTER → 2022-11-03 07:21 | Outpatient (CLI) | payer MEDICARE, OTHER, SELFPAY ==
--- NOTE | 2022-11-03 | DI.ECHO.S_ITS ---
[place] [facility]---------+ [facility] +---------+ : : [address] : : : : [id number] : : : : Phone: [phone] Echocardiogram Report + + :Name: TULIO PALOMARES Study Date: 11/03/2022 Height: 60 in : :[facility] ReadingLocation: Weight: 105 lb : : Gender: Female BSA: 1.4 m2 : :: 1940 Age: 82 yrs BP: 145/73 mmHg: :Reason For Study: TIA : :Ordering Physician: OSCAR, : :JESSIKA Performed By: Belgica Alvarenga : :Referring: JESSIKA MOORE : + + Interpretation Summary Left ventricular ejection fraction is estimated to be 55%. Left ventricular wall motion is normal. There is mild mitral annular calcification. There is mild mitral regurgitation. There is mild tricuspid regurgitation. Procedure: A two-dimensional transthoracic echocardiogram with color flow and Doppler was performed. The study quality was technically adequate. There is no prior echocardiogram noted for this patient. The patient was in sinus rhythm with heart rates between 68-75 bpm during the exam. Left Ventricle: The left ventricle is normal in size and wall thickness. Left ventricular ejection fraction is estimated to be 55%. Left ventricular wall motion is normal. Right Ventricle: The right ventricle is normal in size and function. Atria: The left atrial size is normal. Right atrial size is normal. There is no Doppler evidence for an interatrial shunt. Mitral Valve: There is mild mitral annular calcification. The mitral valve leaflets appear mildly thickened, but open well. There is mild mitral regurgitation. Aortic Valve: The aortic valve is grossly normal. The aortic valve opens well. There is no aortic valve stenosis. No aortic regurgitation is present. Tricuspid Valve: The tricuspid valve is normal in structure and function. There is mild tricuspid regurgitation. Pulmonic Valve: The pulmonic valve leaflets are thin and pliable; valve motion is normal. There is trace pulmonic regurgitation. Great Vessels: The aortic root is not well visualized. The ascending aorta could not be visualized. The IVC is of normal diameter and collapses greater than 50% with a sniff. This suggests a low right atrial pressure of 3 mm Hg. Pericardium/ Pleura There is no pericardial effusion. There is no pleural effusion. MMode/2D Measurements & Calculations LVIDd: 4.2 cm LVOT diam: 2.0 cm LVIDs: 2.9 cm Ao Arch Diam (Prox Trans): 2.2 cm FS: 31.5 % IVSd: 0.87 cm LVPWd: 0.76 cm LV rick. diameter/BSA (cm/m^2): 3.0 LV sys. diameter/BSA (cm/m^2): 2.0 LA A2 area: 11.0 cm2 RA long axis: 3.6 cm LA A4 area: 14.9 cm2 RA area: 10.7 cm2 LA length (vol): 4.3 cm RA vol: 27.2 ml LA vol: 32.5 ml RA : 19.2 ml/m2 LA vol index: 22.9 ml/m2 IVC diam: 0.90 cm RVD1 (basal): 3.2 cm TAPSE: 1.8 cm Doppler Measurements & Calculations Ao V2 max: 120.4 cm/sec LVOT Max Chauncey: 85.4 cm/sec Ao V2 mean: 77.4 cm/sec LV V1 max P.9 mmHg Ao max P.8 mmHg LV V1 VTI: 18.4 cm Ao mean P.7 mmHg RAZ(I,D): 1.9 cm2 Ao V2 VTI: 29.2 cm RAZ(V,D): 2.2 cm2 sev ratio: 0.63 RAZ indexed to BSA (cm^2/m^2): 1.4 MV E max chauncey: 60.9 cm/sec PA V2 max: 77.1 cm/sec MV A max chauncey: 69.5 cm/sec PA V2 mean: 54.7 cm/sec MV E/A: 0.88 PA mean P.3 mmHg Med Peak E' Chauncey: 3.7 cm/sec PA pr(Accel): 31.0 mmHg E/E' med: 16.5 Lat Peak E' Chauncey: 7.0 cm/sec E/E' lat: 8.7 E/e' average: 12.6 MV dec time: 0.19 sec SV(LVOT): 56.8 ml Reading Physician:12:16 PM
--- NOTE | 2022-11-03 | DI.MRI.S_ITS ---
PROCEDURE: MR STROKE Pre- and post-contrast brain MRI, non-contrast brain MR angiogram, pre- and postcontrast neck MR angiogram INDICATIONS: Transient cerebral ischemic attack, unspecified TECHNIQUE: Brain: Noncontrast axial T1 spin echo, axial T2 fast spin echo, sagittal and axial FLAIR, coronal T2 fast spin echo, axial gradient echo, axial diffusion and ADC through the brain. After the administration of contrast, axial 3D VIBE of the cranial vasculature and brain. Brain MRA: Non-contrast 3-D time of flight MR angiogram, with multiple yqcshxy-uobkaddbv-iyhdextmdr (MIP) reformats performed. Neck MRA: Axial and sagittal TruFISP through the neck. Coronal dynamic MR angiogram during administration of contrast in the arterial and venous phases, with 3-dimenstional utoycpz-fkoadxymc-furxmkrxhx (MIP) reformats constructed from subtraction images. COMPARISON: None. FINDINGS: Image quality: Excellent. BRAIN: CSF spaces: Ventricles are normal in size and shape. Basal cisterns are patent. No extra-axial fluid collections. Brain: No intracranial bleeds or mass effects. Banuelos-white matter interface is normal. Diffusion weighted images show no acute infarct. Moderate cerebral and cerebellar atrophy and multifocal as well as confluent periventricular white matter chronic ischemic change. Symmetric chronic ischemic change noted in the dannie as well dannie as well. Normal intravascular flow voids are present. No abnormal intracranial enhancement. Skull and face: Calvarial marrow signal is normal. Bilateral intraocular lens replacements noted. Sinuses: Sinuses and mastoids are clear. BRAIN MR ANGIOGRAM: Anterior circulation: Intracranial internal carotid arteries are normal in size and enhancement. The flow within the paired anterior cerebral arteries is normal and symmetric. The flow within the middle cerebral arteries is normal and symmetric. The anterior communicating artery is seen. No stenoses, occlusions, or aneurysms. Posterior circulation: Diminutive left vertebral artery and right vertebral artery dominance noted. Normal basilar artery.. Hypoplasia/aplasia of the left P1 PRODUCT TESTER FIBERGLASS noted. The P2 segment is supplied by a widely patent posterior communicating artery. Remainder of the distal vasculature unremarkable. No stenoses, occlusions, or aneurysms. NECK MR ANGIOGRAM: Carotids: Great vessels demonstrate a conventional anatomy as they arise from the aortic arch. The origins of the common carotid arteries appear patent. The calibers and courses of both common carotid arteries are normal. The bifurcation regions appear normal bilaterally. The internal carotid arteries demonstrate normal course and caliber. Posterior circulation: The origins of the vertebral arteries appear patent. Right vertebral artery dominance. More superior portions of both vertebral arteries demonstrate normal course and caliber, and join to form a normal appearing basilar artery. Miscellaneous: Subclavian arteries appear patent. Pre-contrast images through the neck show no soft tissue abnormalities. IMPRESSION: Moderate atrophy and white matter chronic ischemic change without acute infarct, hemorrhage or mass lesion. Unremarkable MR angiogram of the intracranial and cervical vasculature Approved by: Germain Morocho M.D. on 11/03/2022 at 13:00
== END ==
PROVIDERS: PCP Family Medicine; Referring Provider Internal Medicine; Visit Provider Internal Medicine
DX: G45.9 Transient cerebral ischemic attack, unspecified (principal); I08.1 Rheumatic disorders of both mitral and tricuspid valves
CPT/HCPCS: 70548; 70553; 93306; A9579

== ENCOUNTER → 2022-12-09 16:29 | Outpatient (CLI) | payer MEDICARE, OTHER, SELFPAY ==
--- NOTE | 2022-12-09 | DI.RAD.S_ITS ---
PROCEDURE: XR SCAPULA LT INDICATIONS: lt shoulder and scapula TECHNIQUE: 2 views of the scapula were acquired. COMPARISON: None. FINDINGS: Bones: No fractures or dislocations. No suspicious bony lesions. Visualized ribs appear intact. Mild periarticular osteophyte formation at the acromioclavicular and glenohumeral joints. Soft tissues: Overlying soft tissues appear normal. IMPRESSION: Osteoarthritis. No acute fracture. No osseous lesion. If symptoms and/or clinical suspicion for pathology persist, further assessment with repeat, or advanced imaging (e.g., CT, MRI, or bone scan) may be helpful for further assessment. Dictated by: Davis Blake M.D. on 12/10/2022 at 12:15 Transcribed by: REBEL on 12/10/2022 at 12:16 Approved by: Davis Blake M.D. on 12/10/2022 at 16:25
--- NOTE | 2022-12-09 | DI.RAD.S_ITS ---
PROCEDURE: XR SHOULDER LT MIN 2V INDICATIONS: lt shoulder pain TECHNIQUE: 3 views of the shoulder were acquired. COMPARISON: [facility], CT, CT ANGIO HEAD AND NECK, 10/22/2022, 10:16. [facility], CR, XR CHEST 1V, 10/22/2022, 9:37. [facility], CR, XR SCAPULA LT, 12/09/2022, 16:52. FINDINGS: Bones: No fractures or dislocations. No suspicious bony lesions. Visualized ribs appear intact. Mild periarticular osteophyte formation at the acromioclavicular and glenohumeral joints. Soft tissues: No suspicious soft tissue calcifications. Subpleural density within the left upper lung laterally, as seen by CT. IMPRESSION: Osteoarthritis. No acute fracture. No osseous lesion. If symptoms and/or clinical suspicion for pathology persist, further assessment with repeat, or advanced imaging (e.g., CT, MRI, or bone scan) may be helpful for further assessment. Dictated by: Davis Blake M.D. on 12/10/2022 at 12:16 Transcribed by: REBEL on 12/10/2022 at 12:18 Approved by: Davis Blake M.D. on 12/10/2022 at 16:25
--- NOTE | 2022-12-09 | DI.RAD.S_ITS ---
PROCEDURE: XR TIBIA FIBULA LT 2V INDICATIONS: left lower leg pain TECHNIQUE: 2 views of the tibia and fibula were acquired. COMPARISON: None. FINDINGS: Bones: No fractures or dislocations. No suspicious bony lesions. Soft tissues: No suspicious soft tissue calcifications or masses. IMPRESSION: No acute fracture. No osseous lesion. If symptoms and/or clinical suspicion for pathology persist, further assessment with repeat, or advanced imaging (e.g., CT, MRI, or bone scan) may be helpful for further assessment. Dictated by: Davis Blake M.D. on 12/10/2022 at 12:15 Transcribed by: REBEL on 12/10/2022 at 12:15 Approved by: Davis Blake M.D. on 12/10/2022 at 16:25
== END ==
PROVIDERS: PCP Family Medicine; Referring Provider Internal Medicine; Visit Provider Internal Medicine
DX: M19.09 Primary osteoarthritis, other specified site (principal); M25.512 Pain in left shoulder; M19.012 Primary osteoarthritis, left shoulder; M79.662 Pain in left lower leg
CPT/HCPCS: 73010; 73030; 73590

== ENCOUNTER → 2023-02-26 09:12 | Outpatient (CLI) | payer MEDICARE, OTHER, SELFPAY ==
--- NOTE | 2023-02-26 | DI.ECHO.S_ITS ---
Version: 1 Study ID: [id number] [place] [address] Name: TULIO PALOMARES Study Date: 02/26/2023, 9: 25 AM : 1940 BP: 162 / 72 mmHg Gender: Female Height: 60 in Age: 82 Years Weight: 105.002 lb BSA: 1.42 mA? Ordering: Neelam Cortez Referring: NEELAM CORTEZ Clinician: Priscila Au Reason For Study: Abnormalitites of Heart Beat History: Summary Statements Normal sinus rhythm with frequent PAC's. Normal LV size and wall thickness; normal wall motion and LV systolic function. EF is 65-70%. Mild mitral annular calcification; aortic sclerosis without stenosis. Otherwise no significant valvular abnormalities. Normal chamber sizes. Compared to prior study 11/03/2022, PAC's are newly described. Otherwise no significant changes have occurred. Procedure: A two-dimensional transthoracic echocardiogram with color flow and Doppler was performed. The study quality was technically adequate. Comparison is made with the echocardiogram of 11/03/2022. Left Ventricle: The left ventricle is normal in size. The ejection fraction is estimated to be 65-70%. Right Ventricle: The right ventricle is normal size. The right ventricular systolic function is normal. Atria: The left atrial size is normal. Right atrial size is normal. There is no Doppler evidence for an interatrial shunt. Mitral Valve: The mitral valve leaflets appear mildly thickened, but open well. There is mild mitral annular calcification. There is no mitral valve stenosis. There is trace mitral regurgitation. Aortic Valve: The aortic valve is trileaflet. The aortic valve opens well. There is mild aortic valve sclerosis. There is no aortic valve stenosis. There is trace aortic regurgitation. Tricuspid Valve: The tricuspid valve is normal. There is no tricuspid stenosis. There is trace tricuspid regurgitation. Pulmonic Valve: The pulmonic valve leaflets are thin and pliable; valve motion is normal. There is no pulmonic valvular stenosis. There is no pulmonic valvular regurgitation. Great Vessels: The aortic root is normal size. The ascending aorta is normal in size. The pulmonary artery is normal size. The IVC is of normal diameter and collapses greater than 50% with a sniff. This suggests a low right atrial pressure of 3 mm Hg. Pericardium/ Pleura: There is a trivial pericardial effusion noted. There is no pleural effusion. 2D and M-Mode Measurements and Calculations LVIDd: 3.5 cm AoV Openin.30 cm LVIDs: 2.40 cm LVOT diam: 1.53 cm IVSd: 1.00 cm Ao root diam: 2.6 cm LVPWd: 1.10 cm asc Aorta Diam: 2.5 cm LV rick. diameter/BSA (cm/m^2): 2.47 LV sys. diameter/BSA (cm/m^2): 1.69 RVD1 (basal): 3.8 cm LA A4 area: 11.5 jailer? RA area: 10.5 jailer? LA A2 area: 11.2 jailer? RA long axis: 4.0 cm LA length (vol): 3.5 cm RA vol: 23.4 ml LA vol: 31.1 ml RA : 16.5 ml/mA? LA vol index: 21.9 ml/mA? Doppler Measurements and Calculations Ao V2 max: 118.0 cm/sec LVOT Max Chauncey: 92.5 cm/sec Ao V2 mean: 83.7 cm/sec LV V1 max P.4 mmHg Ao V2 VTI: 28.9 cm LV V1 VTI: 22.3 cm Ao max P.0 mmHg SV(LVOT): 41.1 ml Ao mean P.0 mmHg RAZ(I,D): 1.42 jailer? RAZ(V,D): 1.45 jailer? RAZ indexed to BSA (cm^2/m^2): 1.00 sev ratio: 0.77 MV E max chauncey: 90.8 cm/sec MV dec time: 0.27 sec MV A max chauncey: 81.0 cm/sec MV E/A: 1.12 TR max chauncey: 240.0 cm/sec PA mean P.00 mmHg TR max P.0 mmHg PA V2 max: 93.5 cm/sec Electronically signed by: Renata Tidwell M.D. 02/27/2023, 1: 41 AM
--- NOTE | 2023-02-26 10:26 | DI.DEXA.S_ITS ---
Bone Density Report Name: TULIO PALOMARES Age: 82 Sex: Female Ethnicity: White Date of : 1940 Indication: osteopenia; Referring Provider: YOHANNES MARAVILLA Study: Bone densitometry was performed. Exam Date: February 26, 2023 Accession number: [id number] Bone Density: Region BMD T-score Z-score Classification AP Spine(L1, L2) 0.732 -2.2 0.3 Osteopenia Femoral Neck (Left) 0.689 -1.4 0.9 Osteopenia Total Hip (Left) 0.766 -1.4 0.7 Osteopenia Femoral Neck (Right) 0.651 -1.8 0.6 Osteopenia Total Hip (Right) 0.744 -1.6 0.5 Osteopenia Total Hip Mean 0.755 -1.5 0.6 Osteopenia World Health Organization criteria for BMD impression classify patients as: Normal (T-score at or above -1.0), Osteopenia (T-score between -1.0 and -2.5), or Osteoporosis (T-score at or below -2.5). 10-year Fracture Risk(1): Major Osteoporotic Fracture 13% Hip Fracture 3.7% Reported Risk Factors: [place] (), Neck BMD=0.651, BMI=21.1 (1) FRAX(R) Version 3.08. Fracture probability calculated for an untreated patient. Fracture probability may be lower if the patient has received treatment. Previous Exams: -- Region Exam Age BMD T-score BMD Change BMD Change Date g/cm2 vs Baseline vs Previous -- AP Spine (L1-L2) 02/26/2023 82 0.732 -2.2 0.016 (2.2%)# 0.016 (2.2%)# 02/11/2021 80 0.716 -2.4 Total Hip(Left) 02/26/2023 82 0.766 -1.4 0.043 (5.9%)# 0.043 (5.9%)# 02/11/2021 80 0.723 -1.8 Total Hip(Right) 02/26/2023 82 0.744 -1.6 0.021 (2.9%)# 0.021 (2.9%)# 02/11/2021 80 0.723 -1.8 -- *Denotes significance at 95% confidence level, LSC for AP Spine = 0.022 g/cm2, LSC for Total Hip = 0.027 g/cm2 # Denotes dissimilar scan types or analysis methods Impression: The patient has low bone mass, based on the Total Spine T-score. The patient has an estimated ten-year risk of hip fracture of 3.7% and an estimated ten-year risk of major fracture of 13%, based on the WHO FRAX algorithm. No significant bone loss was observed. Discussion: BONE DENSITY IS LOW AT ONE OR MORE SKELETAL SITES. THE PATIENT'S BMD AND CLINICAL RISK FACTORS CONTRIBUTE TO THIS PATIENT'S INCREASED RISK OF FRACTURE. This patient's lowest T-score is low at one or more skeletal sites. It meets the World Health Organization's (WHO) criteria for ?low bone mass? (T-score between -1.0 and -2.5). The patient's 10-year risk of hip fracture as calculated by FRAX exceeds the threshold where pharmacological therapy is recommended by the National Osteoporosis Foundation (NOF). However, all treatment decisions require clinical judgment and consideration of individual patient factors, including patient preferences, comorbidities, previous drug use, risk factors not captured in the FRAX model (e.g., frailty, falls, vitamin D deficiency, increased bone turnover, interval significant decline in bone density) and possible under or overestimation of fracture risk by FRAX. The patient should follow a healthful lifestyle (good nutrition with adequate calcium and vitamin D, and appropriate weight-bearing exercise). Follow-Up: Consider a repeat BMD and Vertebral Fracture Assessment (VFA) exam in 2 years or sooner if medically necessary, to reassess this patient's status. Reported by: JACQUELYN CONLEY M.D. on 02/26/2023 10:36:00 AM.
== END ==
PROVIDERS: PCP Family Medicine; Referring Provider Family Medicine; Visit Provider Family Medicine
DX: M85.88 Other specified disorders of bone density and structure, other site (principal); R00.8 Other abnormalities of heart beat; I08.0 Rheumatic disorders of both mitral and aortic valves; M25.80 Other specified joint disorders, unspecified joint; Z78.0 Asymptomatic menopausal state
CPT/HCPCS: 77080; 93306

== ENCOUNTER → 2023-07-06 08:53 | Outpatient (CLI) | payer MEDICARE, OTHER, SELFPAY ==
--- NOTE | 2023-07-06 | DI.RAD.S_ITS ---
PROCEDURE: XR CHEST 2V INDICATIONS: hemoptysis TECHNIQUE: 2 views of the chest were acquired. COMPARISON: [facility], CR, XR CHEST 2V, 12/11/2019, 11:55. [facility], CT, CT CHEST W CON, 03/17/2022, 12:34. [facility], CT, CT CHEST W CON, 12/18/2019, 13:00. [facility], CR, XR CHEST 1V, 10/22/2022, 9:37. FINDINGS: Surgical changes and devices: None. Lungs and pleura: Unchanged findings. Biapical pleural parenchymal scarring. Stable peripheral left upper lobe pulmonary nodule. At it measures approximately 8 mm. No acute infiltrates. No pleural effusions or pneumothorax. Mediastinum: Mediastinal contours are normal. Heart size is normal. Bones and chest wall: No suspicious bony abnormalities. Soft tissues appear unremarkable. IMPRESSION: Stable pulmonary nodule, biapical pleural parenchymal scarring. No acute process. Dictated by: Damian Fernandez M.D. on 07/06/2023 at 11:04 Approved by: Damian Fernandez M.D. on 07/06/2023 at 11:30
== END ==
PROVIDERS: PCP Family Medicine; Referring Provider Family Medicine; Visit Provider Family Medicine
DX: R04.2 Hemoptysis (principal); R91.1 Solitary pulmonary nodule; J98.4 Other disorders of lung
CPT/HCPCS: 71046

== ENCOUNTER → 2023-07-12 16:32 | Outpatient (CLI) | payer MEDICARE, OTHER, SELFPAY ==
[2023-07-12 18:40] LABS: Alanine Aminotransferase 26 IU/L (<35); Albumin 4.3 g/dL (3.5-5.0); Albumin Globulin Ratio 1.4 (1.0-2.8); Alkaline Phosphatase 66 U/L (38-126); Aspartate Aminotransferase 43 IU/L (14-36); Bilirubin Total 0.7 mg/dL (0.2-1.3); Blood Urea Nitrogen 20 mg/dL (7-17); Calcium 9.8 mg/dL (8.4-10.2); Carbon Dioxide 27 mmol/L (22-32); Chloride 98 mmol/L (98-107); Cholesterol 180 mg/dL (140-199); Creatine Kinase 211 U/L (30-135); Estimated Glomerular Filt Rate > 60 mL/min (>60); Glucose 84 mg/dL (80-110); HDL Cholesterol 83 mg/dL (40-60); HEMOLYSIS < 15 (0-50); LDL Cholesterol Calculated 79 mg/dL (<100); Potassium 4.3 mmol/L (3.4-5.1); Sodium 134 mmol/L (137-145); Total Protein 7.3 g/dL (6.3-8.2); Triglycerides 89 mg/dL (35-150)
[2023-07-12 19:05] LABS: Thyroid Stimulating Hormone 4.92 uIU/mL (0.47-4.68)
[2023-07-12 19:07] LABS: Free T4, Direct Thyroxine QNS ng/dL (0.78-2.19)
== END ==
PROVIDERS: Radiology Diagnostic Radiology; PCP Family Medicine; Referring Provider Family Medicine; Visit Provider Family Medicine
DX: I10 Essential (primary) hypertension (principal); E78.00 Pure hypercholesterolemia, unspecified; H61.21 Impacted cerumen, right ear; R03.0 Elevated blood-pressure reading, without diagnosis of hypertension; R79.89 Other specified abnormal findings of blood chemistry; R73.01 Impaired fasting glucose
CPT/HCPCS: 36415; 80053; 80061; 82550; 84443

== ENCOUNTER → 2023-07-13 11:49 | Outpatient (CLI) | payer MEDICARE, OTHER, SELFPAY ==
--- NOTE | 2023-07-13 | DI.CT.S_ITS ---
PROCEDURE: CT ANGIO CHEST INDICATIONS: cough with hemoptysis TECHNIQUE: After the administration of intravenous contrast, 2 mm thick sections acquired from the pulmonary apices to the posterior costophrenic angles. 3-dimensional maximum intensity projection (MIP) coronal and sagittal reformats were then acquired through the thorax. For radiation dose reduction, the following was used: automated exposure control, adjustment of mA and/or kV according to patient size. COMPARISON: [facility], CT, CT CHEST W CON, 12/18/2019, 13:00. FINDINGS: Image quality: Excellent. Pulmonary arteries: Pulmonary arteries are normal in size, and demonstrate no intraluminal filling defects to suggest central pulmonary embolism. Lungs and pleura: Compared to CT chest dated December 18, 2019, new right lower lobe masslike consolidation measuring 2.3 x 1.1 cm (5/199) with inferomedial linear extension and associated bronchial wall thickening/plugging (/216). Right upper lobe part solid mass has mildly increased in size measuring 1.1 x 0.8 cm (/102), previously 0.9 x 0.7 cm (remeasured, ). Biapical pleuroparenchymal scarring, airspace disease and emphysema, similar to prior. No pleural effusions or pneumothorax. Central airways are patent. Mediastinum: Stable mild cardiomegaly with no pericardial effusion. No mediastinal or hilar adenopathy. Borderline enlarged right hilar lymph node measuring 1.3 x 0.9 cm (4/43). Thoracic aorta is normal in caliber and enhancement. Esophagus is normal in caliber, without hiatal hernia. Moderate calcification of the thoracic aorta. Moderate to marked coronary vessel calcifications. Bones and chest wall: No suspicious bony lesions. Ribs and thoracic spine appear intact throughout. Thyroid gland unremarkable. No axillary or supraclavicular adenopathy. Abdomen: Early arterial phase demonstrates no acute findings. Moderate calcification of the abdominal aorta. Stable calcified hypodense appearance of the right adrenal gland, likely sequela of remote hemorrhage or trauma (4/143), benign. IMPRESSION: 1. Compared to CT chest dated December 18, 2019, new right lower lobe masslike consolidation measuring 2.3 x 1.1 cm with inferomedial linear extension and associated bronchial wall thickening/plugging. Differential includes infection, inflammation/aspiration and/or malignancy. Consider PET-CT and/or contrast enhanced CT of the chest in 6-8 weeks to evaluate for interval change. 2. Right upper lobe part solid mass has mildly increased in size measuring 1.1 x 0.8 cm, previously 0.9 x 0.7 cm. 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 3. Borderline enlarged right hilar lymph node measuring 1.3 x 0.9 cm which is indeterminate, possibly reactive. Attention on follow-up imaging. 4. Biapical pleuroparenchymal scarring, airspace disease and emphysema, similar to prior. Dictated by: Lien Carroll M.D. on 07/13/2023 at 15:39 Approved by: Lien Carroll M.D. on 07/13/2023 at 15:58
== END ==
PROVIDERS: PCP Family Medicine; Referring Provider Family Medicine; Visit Provider Family Medicine
DX: R04.2 Hemoptysis (principal); R91.8 Other nonspecific abnormal finding of lung field; J98.4 Other disorders of lung; J43.9 Emphysema, unspecified
CPT/HCPCS: 71275

== ENCOUNTER → 2023-08-24 09:37 | Outpatient (CLI) | payer MEDICARE, OTHER, SELFPAY ==
--- NOTE | 2023-08-24 | DI.CT.S_ITS ---
PROCEDURE: CT CHEST W CON INDICATIONS: COUGH WITH HEMOPTYSIS TECHNIQUE: After the administration of intravenous contrast, 5 mm thick sections acquired from the pulmonary apices to the posterior costophrenic angles. 1 mm axial lung, 5 mm thick coronal and sagittal reformats and 7 mm axial MIP were acquired. For radiation dose reduction, the following was used: automated exposure control, adjustment of mA and/or kV according to patient size. FINDINGS: Image quality: Diagnostic. Lungs and pleura: Biapical scarring with mild emphysema and bronchial thickening. Peripheral juxtapleural nodularity, similar to priors. Stable 1.2 centimeter part solid nodule in the right upper lobe (series 3, image 105). Resolved right lower lobe lesion Mediastinum: Heart size is normal. No pericardial effusion. No mediastinal or hilar adenopathy by size criteria. Thoracic aorta and central pulmonary arteries are normal in size. Esophagus is normal in caliber. No hiatal hernia. Stable prominent right hilar node measuring 0.9 centimeter short axis (series 2, image 23). Bones and chest wall: No suspicious bony lesions. No vertebral body compression fractures. No axillary or supraclavicular adenopathy by size criteria. No thyroid nodules which require sonographic follow up, per consensus guidelines. Upper Abdomen: Calcified right adrenal gland, consistent with remote hemorrhage or trauma. IMPRESSION: Resolved right lower lobe consolidation, consistent with a benign etiology such as resolved infection. 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 Recommend pulmonology referral for further management. Dictated by: Adam Guerrier M.D. on 08/24/2023 at 9:49 Approved by: Adam Guerrier M.D. on 08/24/2023 at 9:54
== END ==
PROVIDERS: PCP Family Medicine; Referring Provider Family Medicine; Visit Provider Family Medicine
DX: R04.2 Hemoptysis (principal); R91.1 Solitary pulmonary nodule
CPT/HCPCS: 71260

== ENCOUNTER → 2023-11-08 14:56 | Outpatient (CLI) | payer MEDICARE, OTHER, SELFPAY ==
--- NOTE | 2023-11-08 | DI.MG.S_ITS ---
BILATERAL DIGITAL SCREENING MAMMOGRAM 3D/2D WITH CAD: 11/08/2023 CLINICAL: Routine screening. Comparison is made to exams dated: 07/11/2012 mammogram, 06/30/2011 mammogram, and 06/03/2010 mammogram - [facility]. Both breasts are heterogeneously dense, which may obscure small masses (category c / 51-75% glandular tissue). Current study was also evaluated with a Computer Aided Detection (CAD) system. No significant masses, calcifications, or other findings are seen in either breast. There has been no significant interval change. IMPRESSION: NEGATIVE There is no mammographic evidence of malignancy. A 1 year screening mammogram is recommended. Based on the Tyrer Cuzick model (a risk assessment model) the patient's lifetime risk is 1.0% and her 10 year risk is 0.0%. According to the ACR, ACS, and NCCN guidelines, an annual breast MRI exam along with mammogram is recommended if the patient's lifetime risk is 20% or greater. This exam was interpreted at Station ID: [id number]. NOTE: For mammograms, a report in lay terms will be sent to the patient. Approximately 15% of breast malignancies will not be visualized mammographically. In the management of a palpable breast mass, a negative mammogram must not discourage biopsy of a clinically suspicious lesion. Electronically Signed By: Barbara Mandujano M.D., PH.D eb/jany:11/09/2023 16:37:01 letter sent: Normal Exam ACR BI-RADS Category 1: Negative [id number]
== END ==
PROVIDERS: PCP Family Medicine; Referring Provider Family Medicine; Visit Provider Family Medicine
DX: Z12.31 Encounter for screening mammogram for malignant neoplasm of breast (principal); R92.333 Mammographic heterogeneous density, bilateral breasts
CPT/HCPCS: 77063; 77067

== ENCOUNTER → 2024-04-17 17:58 | Outpatient (ROUT) | payer MEDICARE, OTHER, SELFPAY ==
[2024-04-17 18:47] LABS: Influenza A - CEPHEID Flu A NEGATIVE (NEGATIVE); Influenza B - CEPHEID Flu B NEGATIVE (NEGATIVE); Respiratory Syncytial Virus Negative (Negative)
[2024-04-17 18:51] LABS: COVID-19 CEPHEID 4-PLEX PCR Negative (Negative)
== END ==
PROVIDERS: PCP Family Medicine; Visit Provider Family Medicine
DX: R05.1 Acute cough (principal); R06.02 Shortness of breath
CPT/HCPCS: 0241U

== ENCOUNTER → 2024-04-24 07:54 | Outpatient (CLI) | payer MEDICARE, OTHER, SELFPAY ==
--- NOTE | 2024-04-24 07:56 | DI.CT.S_ITS ---
PROCEDURE: CT CHEST W CON INDICATIONS: BRONCHIECTASIS WITH ACUTE EXACERBATION TECHNIQUE: After the administration of intravenous contrast, 5 mm thick sections acquired from the pulmonary apices to the posterior costophrenic angles. 1 mm axial lung, 5 mm thick coronal and sagittal reformats and 7 mm axial MIP were acquired. For radiation dose reduction, the following was used: automated exposure control, adjustment of mA and/or kV according to patient size. COMPARISON: [facility], CT, CT CHEST W CON, 08/24/2023, 10:06. FINDINGS: Image quality: Diagnostic. Lower Neck: No enlarged lymph nodes. Thyroid: No thyroid nodules which require sonographic follow up, per consensus guidelines. Axillae: No enlarged lymph nodes. Chest Wall: Unremarkable. Bones: Unremarkable. Lungs and Pleura: No pneumothorax or pleural effusions. Biapical scarring. Scattered pulmonary nodules, most of which are punctate in size. Persistent 1.2 x 0.8 centimeter nodule in the right upper lobe (series 3, image 107). Scattered mucous plugging. Heart: Heart size is normal. No pericardial effusion. Thoracic Vessels: The aorta and pulmonary arteries demonstrate normal size. Mediastinum and Selena: No enlarged lymph nodes. Esophagus: Lower esophageal wall thickening. Upper Abdomen: Visualized upper abdomen solid organs and bowel loops appear normal. IMPRESSION: Stable pulmonary nodules, including the dominant 1.2 x 0.8 centimeter nodule in the right upper lobe (series 3, image 107). Lower esophageal wall thickening, cysts of of esophagitis. Malignancy is also consideration. Correlate with symptoms and consider GI referral. Dictated by: Adam Guerrier M.D. on 04/24/2024 at 13:24 Approved by: Adam Guerrier M.D. on 04/24/2024 at 13:26
== END ==
PROVIDERS: PCP Family Medicine; Referring Provider Family Medicine; Visit Provider Family Medicine
DX: J47.1 Bronchiectasis with (acute) exacerbation (principal); R91.8 Other nonspecific abnormal finding of lung field; K22.89 Other specified disease of esophagus
CPT/HCPCS: 71260; Q9967

== ENCOUNTER → 2024-05-01 11:30 | Outpatient (ROUT) | payer MEDICARE, OTHER, SELFPAY ==
[2024-05-01 12:13] LABS: Influenza A - CEPHEID Flu A NEGATIVE (NEGATIVE); Influenza B - CEPHEID Flu B NEGATIVE (NEGATIVE)
[2024-05-01 12:14] LABS: COVID-19 CEPHEID 4-PLEX PCR POSITIVE (Negative)
== END ==
PROVIDERS: PCP Family Medicine; Visit Provider Family Medicine
DX: R50.9 Fever, unspecified (principal); R05.1 Acute cough
CPT/HCPCS: 0240U

== ENCOUNTER → 2024-12-05 11:05 | Outpatient (CLI) | payer MEDICARE, OTHER, SELFPAY | LOC: RESP 11:06 | PROVIDERS: PCP Family Medicine; Referring Provider Family Medicine; Visit Provider Family Medicine | DX: R06.02 Shortness of breath (principal); Z87.891 Personal history of nicotine dependence; R94.2 Abnormal results of pulmonary function studies | CPT/HCPCS: 94010; 94726; 94729 ==

== ENCOUNTER → 2024-12-06 08:04 | Outpatient (CLI) | payer MEDICARE, OTHER, SELFPAY ==
--- NOTE | 2024-12-06 08:05 | DI.RAD.S_ITS ---
PROCEDURE: FL UPPER GI SERIES INDICATIONS: COUGH/GERD COMPARISON: [facility], CR, XR CHEST 1 VIEW, 05/24/2024, 14:25. FINDINGS AND IMPRESSION: Preprocedural outpatient dietitian images show moderate fecal loading without radiographic signs or bowel obstruction. There are degenerative osseous changes. No obstructing mass or stenosis is seen in the esophagus on upright images. Expected contrast transit is seen into the stomach and proximal duodenum. Both intra esophageal and gastroesophageal reflux is seen to the level of the thoracic inlet in recumbent position. Gastroesophageal reflux is associated with a small hiatal hernia with provocative maneuvers. There is significant esophageal dysmotility, with tertiary contractions and poor progression of the primary wave. Possible small outpouching and narrowing adjacent to the distal stomach. Differential includes peristalsis, diverticulum and/or ulceration. Consider endoscopy and GI follow-up for the above findings. Deep penetration nearly to the level of the vocal folds is seen on lateral pharynx images. This can be associated with aspiration events, consider speech pathology follow-up. Dictated by: Simon Yen M.D. on 12/06/2024 at 9:04 Approved by: Simon Yen M.D. on 12/06/2024 at 9:11
== END ==
PROVIDERS: PCP Family Medicine; Referring Provider Family Medicine; Visit Provider Family Medicine
DX: J47.1 Bronchiectasis with (acute) exacerbation (principal); K22.89 Other specified disease of esophagus; R05.3 Chronic cough; K21.9 Gastro-esophageal reflux disease without esophagitis; K44.9 Diaphragmatic hernia without obstruction or gangrene
CPT/HCPCS: 74240

== ENCOUNTER → 2024-12-08 11:40 | Outpatient (CLI) | payer MEDICARE, OTHER, SELFPAY ==
--- NOTE | 2024-12-08 11:41 | DI.MG.S_ITS ---
MM screening mammo BI: 12/08/2024. BI-RADS: 1 CLINICAL: 84-year old female for bilateral screening mammogram. Tyrer-Cuzick lifetime risk of 0.5%. No personal or first-degree family history of breast cancer. PRIOR EXAMS 11/08/2023. MAMMOGRAPHY TECHNIQUE: 2D and 3D (tomosynthesis) digital mammographic views obtained, with additional images as needed for full coverage. Current study was also evaluated with a Computer Aided Detection (CAD) system. DENSITY D. The breasts are extremely dense, which lowers the sensitivity of mammography. MAMMOGRAPHY FINDINGS Bilateral: No suspicious mass, asymmetry, microcalcification, or other abnormality seen. IMPRESSION: * No evidence of malignancy. RECOMMENDATIONS Bilateral * Annual screening mammography. OVERALL ASSESSMENT CATEGORY BI-RADS-1: Negative. The [employer] recommends annual screening mammography beginning at age 40 for women with average risk of breast cancer. ELECTRONICALLY SIGNED: Vero Patterson M.D. on 12/08/2024 at 12:55:01 PM PT Interpreting Station ID: [id number]
== END ==
LOC: MAMMO 11:41
PROVIDERS: PCP Family Medicine; Referring Provider Family Medicine; Visit Provider Family Medicine
DX: Z12.31 Encounter for screening mammogram for malignant neoplasm of breast (principal); R92.30 Dense breasts, unspecified
CPT/HCPCS: 77063; 77067

== ENCOUNTER 2025-01-17 10:18 | Outpatient (RCR) | payer MEDICARE, OTHER, SELFPAY ==
--- NOTE | 2025-01-17 13:28 | ST.OPIE ---
Visit Care Team Role Provider Type Neelam Cortez MD Attending Provider Physician Family Provider Primary Care Provider Referring Provider Specialty: Family Practice Address: [address] [place] [address], [facility], [place], [address] Email: [email or web address] Speech-Language Pathology Initial Evaluation SEAMLESS TUBE MILL OPERATOR Clinical Swallow Evaluation Start: 01/17/25 11:22 Freq: Status: Active Protocol: Document 01/17/25 11:23 SS (Rec: 01/17/25 11:29 SS Desktop) Clinical Swallow Evaluation Session Time Visit Start Time 10:45 Visit Stop Time 11:20 Total Visit Minutes 35 Visit Information Visit Number Initial evaluation Plan of Care Dates 01/17/25-05/19/25 Insurance Information Medicare Referral Referring Provider Dr. Neelam Cortez Reason for Referral Swallowing concerns Setting Assessment Location Outpatient Care Visit Type Note Type Initial evaluation Next Note Type Next Note Type Treatment Note Patient Information Identification Type Name History Sarah Tucker is an 84-year- old female, referred for a swallow evaluation by Dr. Neelam Cortez due to swallowing concerns. She is a former smoker. Pertinent medical history includes upper respiratory infection, allergic rhinitis, moderate persistent asthma, bronchiectasis with a persistent mild productive cough, and rhinorrhea. Chest CT on 04/24/24 showed stable pulmonary nodules, lower esophageal wall thickening, and cysts of esophagitis. Gi referral was recommended. GI series completed on 12/06/24 showed ?esophageal and gastroesophageal reflux to the level of the thoracic inlet in recumbent position. Gastroesophageal reflux is associated with a small hiatal hernia with provocative maneuvers. There is significant esophageal dysmotility, with tertiary contractions and poor progression of the primary wave. Possible small outpouching and narrowing adjacent to the distal stomach . Differential includes peristalsis, diverticulum and/ or ulceration.? Endoscopy and GI follow-up were recommended. Additionally, deep penetration nearly to the level of the vocal folds was seen on lateral pharynx images . Referral to SEAMLESS TUBE MILL OPERATOR services was recommended given aspiration risk. During recent pulmonology visit, saline irrigation or Flonase were recommended for the rhinorrhea and postnasal drip. Pt endorses changes in swallowing around three months ago. She also reports increased feeling of mucous in in throat when she wakes up and throughout the day, leading to a baseline productive cough, as she attempts to clear it. She reports coughing with solids and liquids about once a day. She denies voice changes. She denies food or liquids feeling stuck in her throat. She denies unintentional weight loss or PNA. Subjective Observations Pt arrived to the evaluation on time and attended independently. Pt was motivated and engaged throughout the evaluation. Mild productive cough at baseline. Memory/New Learning Potential: WNL, no overt concerns Articulation: 100% in conversation Voice: Perceptually mildly hoarse. Pt stated this is her baseline. Reported by Patient/Caregiver Pain/Discomfort No Other Symptoms Coughing,Difficulty swallowing liquids,Difficulty swallowing solids Current Diet Regular (IDDSI 7) Baseline Feeding Method Independent in self-feeding The IDDSI Framework Protocol: IDDSI.1 Objective Assessment Mental Status Alert,Responsive,Cooperative Oral Integrity WFL Dentition Within normal limits Lip Function Within normal limits Observation of Lips at Rest Symmetrical Pucker Within normal limits Lip Retraction Within normal limits Alternating Pucker/Lip Retraction Within normal limits Tongue Function Within normal limits Observations of Tongue at Rest Within normal limits Tongue Protrusion Within normal limits Tongue Retraction Within normal limits Tongue Lateralization Within normal limits Jaw Function Within normal limits Observation of Jaw at Rest Within normal limits Jaw Opening Within normal limits Jaw Closing Within normal limits Jaw Lateralization Within normal limits Jaw Protrusion Within normal limits Jaw Retraction Within normal limits Hard/Soft Palate Function Within normal limits Observations of Hard/Soft Palate Within normal limits Nasality Within normal limits Respiratory Sufficiency Within normal limits Comment CN V (Trigeminal): intact b/l CN VII (Facial): intact b/l CN IX/X (Glossopharyngeal/ Vagus): intact b/l CN XII (Hypoglossal): intact b /l Food and Liquid Trials Position During Assessment Upright (90 degrees) Liquids Trialed Thin (IDDSI 0) Solid Trials Purred (IDDSI 4),Soft & Bite- sized (IDDSI 6),Regular (IDDSI 7) Administration Type Tea spoon,Cup single sip,Self- feeding Oral Impairment Within normal limits Oral Phase Comments Good oral acceptance and adequate labial closure throughout trials. Mastication appeared organized and timely . No significant oral residue was observed post-swallows. Pharyngeal Impairment Mildly impaired Pharyngeal Phase Comments Inconsistent immediate reflexive cough during trials of single sips of liquid via cup (2/6). Pt stated she felt as if she was clearing accumulated mucous from her throat. Cough about 1-minute post all PO trials, with pt again stating she felt mucous accumulation in her throat. No overt s/sx aspiration noted during trials of solids. No change to voice was noted throughout trials. Pt denied sticking sensation across trials of liquids and solids. Further trials deferred for instrumentation Fatigue/Endurance Endurance WNL The IDDSI Framework Protocol: IDDSI.1 Findings Swallowing Function Pharyngoesophageal phase dysphagia Severity of Swallow Impairment Mildly-moderately impaired Contributing Factors to Swallow Impaired airway protection Impairment Prognosis Good Based on Cognitive status,Family support,Age,Duration of symptoms/severity Comment Signs and symptoms of pharyngeoesophageal dysphagia based on CSE and GI series results. Pt presented with inconsistent overt s/sx of aspiration during trials of liquids today. Per upper GI series, deep penetration nearly to the level of the vocal folds was visualized. Further instrumental assessment is needed to distinguish between overt s/sx of penetration/aspiration and baseline chronic productive cough related to PND and rhinorrhea. Additionally, there is a concern for aspiration given pt reported overt s/sx of aspiration and visualized deep penetration during upper GI series. It also revealed esophageal impairment, including GERD, and esophageal dysmotility with tertiary contractions and poor progression of the primary wave. Based on pt?s good oral health status and overall immune function, pt currently remains at a low risk of pulmonary compromise associated with potential aspiration at this time. Anticipate to obtain further information re: swallow pathophysiology from MBSS report once it is available in order to determine the safest diet, effective compensatory strategies, and potential rehabilitation exercises for therapy. The plan is for the pt to complete a modified barium swallow study to further assess swallowing pathophysiology in order to determine treatment plan. Further goals will be established based on MBSS results. Impact on Safety and Functioning Risk for aspiration Recommendations Instrumental Assessment Yes Swallowing Treatment Yes Frequency 1x/week Duration 3 months Recommended Solids Regular (IDDSI 7) Recommended Liquids Thin (IDDSI 0) Other Recommendations SEAMLESS TUBE MILL OPERATOR provided education re: swallowing anatomy and physiology with use of a visual diagram to improve the pt?s understanding. Provided education re: recommendation for MBSS and ENT referral and pt agreeable. Educational handout provided. SEAMLESS TUBE MILL OPERATOR messaged pt's PCP, Dr. Neelam Cortez requesting MBSS order. Safety Precautions/Swallowing Remain upright (90 degrees) Recommendations during all oral intake,Upright position at least 30 minutes after meals,Small bites and sips when eating,Slow rate; swallow between bites Medication Recommendations As Tolerated Referrals Recommended Referrals Otolaryngology/ENT,Primary Care Provider Education Patient/Caregiver Education Described results of evaluation,Patient expressed understanding of evaluation, Patient expressed agreement with goals & treatment plans Goals Short-term Goals 1. Patient will complete MBSS to further evaluate swallowing pathophysiology and determine next steps in POC. 2. Patient will complete pharyngeal swallowing exercises as instructed by the SEAMLESS TUBE MILL OPERATOR with the use of written supports and verbal cueing in order to improve swallow function and efficiency; including, but not limited to, effortful swallow, CTAR, and Loly. Long-term Goals Patient will safely tolerate least restrictive diet consistency to allow for safe consumption of PO intake without s/sx of aspiration.
--- NOTE | 2025-01-17 13:29 | ST.OPPOC ---
Physical, Occupational & Speech Therapy At [facility] Visit Care Team Role Provider Type Neelam Cortez MD Attending Provider Physician Family Provider Primary Care Provider Referring Provider Address: [address] [place] [address], [address], [place], [address] Speech Pathology Plan of Care Plan of Care Dates 01/17/25-05/19/[address] Neelam Cortez Patient History Sarah Tucker is an 84-year-old female, referred for a swallow evaluation by Dr. Neelam Cortez due to swallowing concerns. She is a former smoker. Pertinent medical history includes upper respiratory infection, allergic rhinitis, moderate persistent asthma, bronchiectasis with a persistent mild productive cough, and rhinorrhea. Chest CT on 04/24/24 showed stable pulmonary nodules, lower esophageal wall thickening, and cysts of esophagitis. Gi referral was recommended. GI series completed on 12/06/24 showed ?esophageal and gastroesophageal reflux to the level of the thoracic inlet in recumbent position. Gastroesophageal reflux is associated with a small hiatal hernia with provocative maneuvers. There is significant esophageal dysmotility, with tertiary contractions and poor progression of the primary wave. Possible small outpouching and narrowing adjacent to the distal stomach. Differential includes peristalsis, diverticulum and/or ulceration.? Endoscopy and GI follow-up were recommended. Additionally, deep penetration nearly to the level of the vocal folds was seen on lateral pharynx images. Referral to IT APPLICATION ARCHITECT services was recommended given aspiration risk. During recent pulmonology visit, saline irrigation or Flonase were recommended for the rhinorrhea and postnasal drip. Pt endorses changes in swallowing around three months ago. She also reports increased feeling of mucous in in throat when she wakes up and throughout the day, leading to a baseline productive cough, as she attempts to clear it. She reports coughing with solids and liquids about once a day. She denies voice changes. She denies food or liquids feeling stuck in her throat. She denies unintentional weight loss or PNA. Short-term Goals 1. Patient will complete MBSS to further evaluate swallowing pathophysiology and determine next steps in POC. 2. Patient will complete pharyngeal swallowing exercises as instructed by the IT APPLICATION ARCHITECT with the use of written supports and verbal cueing in order to improve swallow function and efficiency; including, but not limited to, effortful swallow , CTAR, and Loly. Long-term Goals Patient will safely tolerate least restrictive diet consistency to allow for safe consumption of PO intake without s/sx of aspiration. Comment: Electronically Signed by: JARETH Castro 01/17/25 4431 If you are in agreement with this Plan of Care, please return a signed and dated copy. I have reviewed this Plan of Care and certify that the skilled therapy services above are required to meet the patient?s needs. Physician Signature Date Printed Name and Credentials Clinical Instructor Signature Printed Name and Credentials
--- NOTE | 2025-06-14 11:57 | ST.OPDS ---
Visit Care Team Role Provider Type Neelam Cortez MD Attending Provider Physician Family Provider Primary Care Provider Referring Provider Address: [address] [place] [address], [facility], [place], [address] Current account discharged. Pt has not followed up on recommendation to complete MBSS to inform POC and has not scheduled additional treatment sessions. Recommend pt request new referral from her PCP if she would like to resume speech therapy services in the future.
== END 2025-06-20 10:10 | disposition home or self-care (01) ==
LOC: SP 10:18
PROVIDERS: Family Provider Family Medicine; PCP Family Medicine; Referring Provider Family Medicine; Visit Provider Family Medicine
DX: T17.908A Unspecified foreign body in respiratory tract, part unspecified causing other injury, initial encounter (principal)
CPT/HCPCS: 92610

== ENCOUNTER → 2025-03-09 11:18 | Outpatient (CLI) | payer MEDICARE, OTHER, SELFPAY ==
--- NOTE | 2025-03-09 11:19 | DI.RAD.S_ITS ---
PROCEDURE: XR DEXA AXIAL SKELETON INDICATIONS: osteopenia COMPARISON: [facility], CR, XR DEXA AXIAL SKELETON, 02/26/2023, 10:26. FINDINGS: Lumbar Spine: Bone mineral density 0.776 (previously 0.732) g/cm2, T score -1.8 (previously-2.2). Left Femoral Neck: Bone mineral density 0.628 (previously 0.689) g/cm2, T score -2.0 (previously -1.4). Left Hip: Bone mineral density 0.744 (previously 0.766) g/cm2, T score -1.6 (previously -1.4). Fracture Risk Calculation (when applicable): 10-year fracture risk of a major osteoporotic fracture 13 percent and of a hip fracture 4.3 percent. (T score greater or equal to -1.0 to: NORMAL) (T score from -1.1 to -2.4: OSTEOPENIA) (T score less than or equal to -2.5: OSTEOPOROSIS) IMPRESSION: Osteopenia--- recommend repeat DEXA in 2-3 years for reassessment. Follow-up guidelines as follows: Osteoporosis: Consider a repeat DEXA and Vertebral Fracture Assessment (VFA) exam in 2 years or sooner if medically necessary, to reassess this patient's status. Osteopenia: Consider a repeat DEXA in 2-3 years to reassess this patient's status, or if there is a new clinical indication. Normal: Consider a repeat DEXA in 5 years or sooner, or if there is a new clinical indication. All treatment decisions require clinical judgment and consideration of individual patient factors, including patient preferences, comorbidities, previous drug use, risk factors not captured in the FRAX model (e.g., frailty, falls, vitamin D deficiency, increased bone turnover, interval significant decline in bone density ) and possible under- or over-estimation of fracture risk by FRAX. In addition, the NOF Guide recommends that FDA-approved medical therapies be considered in postmenopausal women and men age >= 50 years with a: * Hip or vertebral (clinical or morphometric) fracture * T-score of <=-2.5 at the spine or hip * Ten-year fracture probability by FRAX of >= 3% for hip fracture or >=20% for major osteoporotic fracture. Dictated by: Miguel Pennington M.D. on 03/09/2025 at 19:28 Approved by: Miguel Pennington M.D. on 03/09/2025 at 19:33
== END ==
LOC: RAD 11:19
PROVIDERS: Family Provider Family Medicine; PCP Family Medicine; Referring Provider Family Medicine; Visit Provider Family Medicine
DX: M81.0 Age-related osteoporosis without current pathological fracture (principal)
CPT/HCPCS: 77080

== ENCOUNTER → 2025-03-30 15:10 | Outpatient (CLI) | payer MEDICARE, OTHER, SELFPAY ==
--- NOTE | 2025-03-30 15:14 | DI.RAD.S_ITS ---
PROCEDURE: XR FINGER LT MIN 2V INDICATIONS: LEFT FINGER PAIN TECHNIQUE: AP hand, 3 views of the 3rd finger(s) acquired. COMPARISON: None. FINDINGS: Bones: Small cortical fragment dorsally adjacent to the 3rd distal interphalangeal joint likely represents a small avulsion fracture. Advanced degenerative change of the trapezium metacarpal and 5th distal interphalangeal joints marked by joint space narrowing, marginal osteophytosis and subchondral sclerosis. No suspicious bony lesions. Soft tissues: No suspicious soft tissue calcifications. IMPRESSION: Suspected avulsion fracture of the distal dorsal margin of the 3rd middle phalanx. Degenerative changes noted. Dictated by: Miguel Pennington M.D. on 04/01/2025 at 18:48 Approved by: Miguel Pennington M.D. on 04/01/2025 at 18:50
== END ==
PROVIDERS: Family Provider Family Medicine; PCP Family Medicine; Referring Provider Family Medicine; Visit Provider Family Medicine
DX: M20.009 Unspecified deformity of unspecified finger(s) (principal); M79.645 Pain in left finger(s)
CPT/HCPCS: 73140

== ENCOUNTER → 2025-06-06 06:56 | Outpatient (CLI) | payer MEDICARE, OTHER, SELFPAY ==
--- NOTE | 2025-06-06 07:00 | DI.US.S_ITS ---
PROCEDURE: US CAROTID DOPPLER BI INDICATIONS: BRUIT TECHNIQUE: Color and pulse Doppler interrogation was performed of both carotid systems, with image documentation and velocity measurements. COMPARISON: None. FINDINGS: Stenosis calculations are based on SRU (Society of Radiologists in Ultras[employer]) criteria. Right side: Brachial blood pressure: 163/79 mm Hg. Common carotid artery peak systolic velocity: 92 cm/sec. Internal carotid artery peak systolic velocity: 177 cm/sec. Internal carotid artery end diastolic velocity: 38 cm/sec. External carotid artery peak systolic velocity: 250 cm/sec. ICA/CCA peak systolic ratio: 1.6. Banuelos scale imaging description: Multifocal calcified and noncalcified plaques. Percent internal carotid artery stenosis: 50-69 percent . Vertebral artery: Flow direction is antegrade. Left side: Brachial blood pressure: 168/75 mm Hg. Common carotid artery peak systolic velocity: 96 cm/sec. Internal carotid artery peak systolic velocity: 109 cm/sec. Internal carotid artery end diastolic velocity: 35 cm/sec. External carotid artery peak systolic velocity: 140 cm/sec. ICA/CCA peak systolic ratio: 1.1 . Banuelos scale imaging description: Extensive multifocal calcified and noncalcified plaque Percent internal carotid artery stenosis: Less than 50 percent . Vertebral artery: Flow direction is antegrade. IMPRESSION: 1. In the right carotid artery, there is 50-69 percent stenosis based on peak systolic velocity criteria. 2. In the left carotid artery, there is less than 50 percent stenosis based on peak systolic velocity criteria. 3. Antegrade vertebral arteries. Dictated by: Dangelo Marr M.D. on 06/06/2025 at 10:44 Approved by: Dangelo Marr M.D. on 06/06/2025 at 10:53
== END ==
PROVIDERS: Family Provider Family Medicine; PCP Family Medicine; Referring Provider Family Medicine; Visit Provider Family Medicine
DX: I65.23 Occlusion and stenosis of bilateral carotid arteries (principal); R09.89 Other specified symptoms and signs involving the circulatory and respiratory systems
CPT/HCPCS: 93880